=== PATIENT | male | born 1940 | race Two or more races ===

== ENCOUNTER 2018-11-17 07:30 | Inpatient (IN) | payer MEDICARE, OTHER ==
[~2018-11-17] VITALS: Ht 165.1 cm; Wt 80.7 kg
[~2018-11-17 07:30] MED LIST: NAPR375T27; VERA120T6
[2018-11-17 08:36] LABS: Urine Bacteria NONE SEEN /hpf (None Seen); Urine Blood Negative /uL (Negative); Urine WBC 1 /hpf (0 - 3)
[2018-11-17 09:20] LABS: Basophils # (auto) 0.1 uL; Basophils % (auto) 1.1 % (0.0-2.0); Eosinophils # (auto) 0.1 uL; Eosinophils % (auto) 2.1 % (0.0-7.0); Hematocrit 43.8 % (41.0-53.0); Hemoglobin 14.9 g/dL (13.5-17.5); Lymphocytes # (auto) 1.3 uL; Lymphocytes % (auto) 25.5 % (10.0-50.0); Mean Corpuscular Hemoglobin 30.8 pg (28.0-32.0); Mean Corpuscular Hgb Conc. 33.9 g/dL (32.0-36.0); Mean Corpuscular Volume 90.7 fL (80.0-100.0); Monocytes # (auto) 0.3 uL; Monocytes % (auto) 6.2 % (0.0-12.0); Neutrophils # (auto) 3.2 uL; Neutrophils % (auto) 65.1 % (37.0-80.0); Nucleated Red Blood Cells % 0.2 %; Platelet Count (auto) 158 10^3/uL (140-450); Red Blood Cells 4.83 10^6/uL (4.5-5.90); Red Cell Distribution Width 14.1 % (11.8-14.3); White Blood Cell 4.9 10^3/uL (4.4-10.8)
[2018-11-17 09:27] LABS: BUN/Creatinine Ratio 14.4; Calcium 8.6 mg/dL (8.5-10.1)
[2018-11-17 09:30] LABS: Bilirubin, Total 1.3 mg/dL (0.2-1.0)
[2018-11-17] MEDS ORDERED: hydrALAZINE HCL 20 MG/ML VL IV PRN (11:30)
[2018-11-17] MEDS ORDERED: ACETAMINOPHEN 500 MG TAB PO PRN (11:30)
[2018-11-17] MEDS ORDERED: ONDANSETRON HCL 4 MG/2 ML VIAL IV PRN (11:30)
[2018-11-17] MEDS ORDERED: NITROGLYCERIN 0.4 MG SL TAB SL PRN (11:30)
[2018-11-17] MEDS ORDERED: MORPHINE SULF INJ 2 MG/ML SYRINGE 1ML IV PRN ×2 (11:30)
[2018-11-17] MEDS ORDERED: HYDROcodone-ACET 5/325MG TAB PO PRN (11:30)
--- NOTE | 2018-11-17 13:15 | NUR ---
Telemetry admit from [facility] admitted to Telemetry unit after SBAR received. Patient oriented to REX MILLAN, primary RN, unit, room, bed, and unit policies regarding patient care and visiting hours. Patient now on continuous telemetry monitoring, tele box # [id number] and telemetry reading on arrival to unit is SR 82. Patient placed on room air, weighed by bedscale and encouraged to call if they need something. All questions and concerns addressed, patient verbalized understanding. Note:
[2018-11-17 14:46] VITALS: BP 138/67
[2018-11-17 15:26] VITALS: BP 138/67
[2018-11-17 16:43] VITALS: BP 141/81
--- NOTE | 2018-11-17 20:00 | NUR ---
Opening Shift Note Assumed care of patient, awake and alert. No S/S of distress/SOB or pain. Instructed on POC and to call for assist PRN, will continue to monitor for changes Q1hr and PRN.
[2018-11-17] MEDS: METOPROLOL TARTRATE 25 MG TAB PO SCH (21:46)
[2018-11-17 22:00] VITALS: BP 127/74
[2018-11-18 05:00] VITALS: BP 138/76
--- NOTE | 2018-11-18 07:21 | NUR ---
Report given to Tacho Bajwa to assume care, patient is resting no distress.
[2018-11-18 07:45] LABS: Basophils # (auto) 0 uL; Basophils % (auto) 0.5 % (0.0-2.0); Eosinophils # (auto) 0.1 uL; Eosinophils % (auto) 1.6 % (0.0-7.0); Hematocrit 42.7 % (41.0-53.0); Hemoglobin 14.6 g/dL (13.5-17.5); Lymphocytes # (auto) 1.3 uL; Mean Corpuscular Hemoglobin 31.3 pg (28.0-32.0); Mean Corpuscular Hgb Conc. 34.2 g/dL (32.0-36.0); Mean Corpuscular Volume 91.4 fL (80.0-100.0); Monocytes # (auto) 0.3 uL; Monocytes % (auto) 6.3 % (0.0-12.0); Neutrophils # (auto) 3.3 uL; Neutrophils % (auto) 65.6 % (37.0-80.0); Nucleated Red Blood Cells % 0.1 %; Platelet Count (auto) 149 10^3/uL (140-450); Red Blood Cells 4.67 10^6/uL (4.5-5.90); White Blood Cell 5.1 10^3/uL (4.4-10.8)
[2018-11-18 07:53] LABS: BUN/Creatinine Ratio 10.8; Calcium 8.2 mg/dL (8.5-10.1); Potassium 4.1 mmol/L (3.5-5.1)
[2018-11-18 08:00] VITALS: BP 146/74
[2018-11-18 08:04] LABS: INR 0.94 (0.9-1.15); Partial Thromboplastin Time 27.3 sec (23.64-32.05)
[2018-11-18] MEDS: METOPROLOL TARTRATE 25 MG TAB PO SCH ×2 (10:44→23:48)
[2018-11-18] MEDS: FAMOTIDINE 20 MG TAB PO SCH (10:44)
[2018-11-18] MEDS: LISINOPRIL 10 MG TAB PO SCH (10:45)
[2018-11-18 12:00] VITALS: BP 149/76
[2018-11-18 17:25] VITALS: BP 122/72
--- NOTE | 2018-11-18 19:01 | NUR ---
PT IN FOWLERS, TOLERATED MEALS WELL. PT AMBULATORY TO BATHROOM WITH STAND BY ASSIST. EFFORTLESS BREATHING ON ROOM AIR. PT HAS REMAINED FREE FROM INJURY, NON-PITTING EDEMA PRESENT TO BLE (ANKLE). BED IN LOWEST POSITION, CALL LIGHT WITHIN REACH.
[2018-11-18 20:00] VITALS: BP 146/74
[2018-11-18] MEDS ORDERED: LORazepam 2MG/ML-1ML VIAL IV PRN (20:15)
[2018-11-18 22:00] VITALS: BP 139/72
[2018-11-19 05:00] VITALS: BP 133/75
--- NOTE | 2018-11-19 07:25 | NUR ---
PT AWAKE, ALERT, ORIENTEDx4 DENIES ANY DISCOMFORT AT MOMENT. EFFORTLESS BREATHING ON ROOM AIR. NO IV ACCESS, REDNESS TO SITE PREVIOUS IV SITE; APPLIED COLD COMPRESS TO SITE, PT REPORTS COMFORT. BED WHEELS LOCKED, BED IN LOWEST POSITION, CALL LIGHT WITHIN REACH. WILL CONTINUE TO MONITOR.
[2018-11-19 08:39] LABS: Folate (Folic Acid) 14.44 ng/mL (5.38-24)
[2018-11-19 09:00] VITALS: BP 143/77
[2018-11-19] MEDS: METOPROLOL TARTRATE 25 MG TAB PO SCH ×2 (10:48→21:45)
[2018-11-19] MEDS: LISINOPRIL 10 MG TAB PO SCH (10:48)
[2018-11-19] MEDS: FAMOTIDINE 20 MG TAB PO SCH (10:48)
[2018-11-19 12:47] VITALS: BP 143/75
--- NOTE | 2018-11-19 13:45 | NUR ---
PT REPORTS HAVING HAD A BM DIARRHEA. HYGIENE CARE PROVIDED. PT TAKEN TO MRI. TRANSPORTED VIA WHEELCHAIR. NO DISTRESS NOTED AT THIS MOMENT.
--- NOTE | 2018-11-19 15:00 | NUR ---
PT BACK FROM MRI. NO DISTRESS NOTED. CALL LIGHT WITHIN REACH.
--- NOTE | 2018-11-19 15:03 | NUR ---
Received referral to see pt as he is homeless and a vet. Pt has been living in his car for over six months. His brother evicted him from their home. Pt's brother moved to [place] and the pt is here with out family in the area. Pt has two daughters in [place]. But he states they are not close. The pt lives in [place]. He earns $ 930.00 in social security and $216.00 from a [employer] pension. Pt has been going down to the [facility] but he states he has to wait for 2 to 3 months to get an appointments. Now he states he has health problems that will prevent him from moving away. Patient has been offered homeless skilled nursing and he refused. Patient wants to return to [facility] on discharge. Pt signed the homeless wavier and it has been placed in chart. He was given a resources.
--- NOTE | 2018-11-19 15:45 | NUR ---
PT REPORTS THAT HE WALKS FINE AND DOES NOT NEED P.T.
[2018-11-19 16:37] VITALS: BP 136/55
--- NOTE | 2018-11-19 19:10 | NUR ---
IV ACCESS INITIATED TO LEFT HAND #22. PT TOLERATED PROCEDURE WELL. IV FLUSHES WELL.
--- NOTE | 2018-11-19 19:48 | NUR ---
RECEIVED PATIENT FROM DAY SHIFT RN. PATIENT RESTING IN BED. NO S/S OF DISTRESS NOTED. DENIED PAIN FOR NOW. POC INSTRUCTED AND ENCOURAGED PATIENT TO CALL FOR PROJECT BUILDER IF NEEDED. BED IN LOWEST POSITION WITH SIDE RAILS UP X 2. CALL MAX WITHIN REACH. ALARM ON. CONTINUE TO MONITOR FOR CHANGES Q1H AND PRN.
[2018-11-19 22:00] VITALS: BP 124/69
--- NOTE | 2018-11-19 22:45 | NUR ---
REASSESSED BP 124/55, HR 60. CONTINUE TO MONITOR.
--- NOTE | 2018-11-20 02:39 | NUR ---
PATIENT SLEEPING. NO S/S OF DISTRESS NOTED, REPLACED PATIENT BACK TO TELEMONITOR.. CONTINUE TO MONITOR.
[2018-11-20 05:31] VITALS: BP 147/54
[2018-11-20 07:06] LABS: RPR Non Reactive (Non Reactive)
--- NOTE | 2018-11-20 07:40 | NUR ---
opening Patient awake, in bed, bed in lowest position, call light within reach. No distress noted at this time. Per history patient has had Left and Right inguinal hernias, with a L side repair. Brain MRI showed chronic issues. Echo EF 60% L spine MRI with out contrast is pending SS saw patient, apparently per noc nurse, awaiting Sonja's arrival and consult. Trops negative CXR bibasilar atelectasis ABD ct diverticulosis, prostate enlargement Per Yoana note: checking for hydrocephalus, and r/o alzheimers per katy note: bright room, daily foot inspection, ss for the living situation (per noc nurse patient is homeless and used to live in a car) Will continue to monitor this patient.
[2018-11-20 08:00] VITALS: BP 114/56
[2018-11-20] MEDS: LISINOPRIL 10 MG TAB PO SCH (10:00)
[2018-11-20] MEDS: METOPROLOL TARTRATE 25 MG TAB PO SCH ×2 (10:00→21:43)
[2018-11-20] MEDS: FAMOTIDINE 20 MG TAB PO SCH (10:15)
--- NOTE | 2018-11-20 10:18 | NUR ---
nurse note upon assessment noted the patient R foot is reddened and warm, will endorse to hospitalist for possible r/o any blood clots
--- NOTE | 2018-11-20 10:22 | NUR ---
nurse note patient describes inability to control bowel or urination
[2018-11-20 12:00] VITALS: BP 120/57
--- NOTE | 2018-11-20 12:21 | NUR ---
Nutrition Assessment Notes please see attached link for complete assessment Est. Needs BW [id number] kcal (20-23 kcal/kgBW), 81-89 gms pro (1.0-1.1 gms/kgBW). Will continue to monitor pertinent labs and reassess nutrient need prn Addendum: 11/20/18 at [address] Amended: Links added.
[2018-11-20 16:00] VITALS: BP 121/68
--- NOTE | 2018-11-20 19:10 | NUR ---
RECEIVED PATIENT FROM DAY SHIFT RN. PATIENT RESTING IN BED. NO S/S OF DISTRESS NOTED. DENIED PAIN FOR NOW. C/O DIZZINESS WHEN HE TRIED TO LAY DOWN TO THE BED. VITALS STABLE, BP 120/70, HR 61. O2 SAT 97% ON RA. PATIENT DENIED DIZZINESS AFTER LYING ON THE BED. INSTRUCTED PATIENT TO CHANGE POSITION SLOWLY WHEN HE FEELS DIZZY, AND CALL FOR HELP. PATIENT VERBALIZED UNDERSTANDING. POC INSTRUCTED AND ENCOURAGED PATIENT TO CALL FOR BASKET PERSON IF NEEDED. BED IN LOWEST POSITION WITH SIDE RAILS UP X 2. CALL MAX WITHIN REACH. ALARM ON. CONTINUE TO MONITOR FOR CHANGES Q1H AND PRN.
[2018-11-20 22:00] VITALS: BP 115/60
--- NOTE | 2018-11-20 22:16 | NUR ---
PATIENT'S DAUGHTER CALLED AND ASKED INFO ABOUT PATIENT. SINCE THERE IS NO PASSWORD SET BY PATIENT, NO INFO RELEASE OUT. PATIENT'S DAUGHTER GOT MAD AND STATED THAT SHE'S WORRY ABOUT HER DAD AND WOULD LIKE TO KNOW WHAT'S GOING ON WITH HER DAD. DOUBLE CHECKED WITH PATIENT, PATIENT ALERT AND ORIENTED AT THIS TIME AND STATED NO PASSWORD NEEDED. REINFORCED PATIENT THAT IF NO PASSWORD, PER HIPAA POLICY, NO INFO COULD BE RELEASED TO ANYONE. PATIENT VERBALIZED UNDERSTANDING. AND STATED THAT HIS DAUGHTER COULD CALL HIS CELL PHONE THAT WAS AT HIS BEDSIDE. TOLD PATIENT'S DAUGHTER REGARDING TO WHAT PATIENT WISHED. SHE HUNG UP THE PHONE. RIGHT WAY AFTER THE DAUGHTER HUNG UP THE PHONE, PATIENT'S SON CALLED AND STATED WHAT HIS CONCERN, REPEATED TO THE SON THAT PATIENT DID NOT WANT TO RELEASE ANY INFO OUT. HE COULD CALL PATIENT'S CELL PHONE FOR ANY INFO. CHARGE NURSE JOSHUA SHEA. CONTINUE TO MONITOR.
--- NOTE | 2018-11-20 22:41 | NUR ---
REASSESSED BP 110/69, HR 66. PATIENT DENIED DIZZINESS AT THIS TIME. CONTINUE TO MONITOR.
--- NOTE | 2018-11-21 02:09 | NUR ---
PATIENT LYING ON HIS STOMACH AND WATCHING VIDEO ON HIS CELL PHONE. NO S/S OF DISTRESS NOTED. DENIED PAIN FOR NOW. BED IN LOWEST POSITION. ALARM ON. CALL MAX WITHIN REACH. CONTINUE TO MONITOR.
[2018-11-21 05:00] VITALS: BP 102/52
--- NOTE | 2018-11-21 05:08 | NUR ---
PATIENT SLEEPING. NO S/S OF DISTRESS NOTED. CONTINUE CARE.
[2018-11-21 07:59] VITALS: BP 133/71
[2018-11-21] MEDS: FAMOTIDINE 20 MG TAB PO SCH (10:25)
[2018-11-21] MEDS: METOPROLOL TARTRATE 25 MG TAB PO SCH ×2 (10:26→22:00)
[2018-11-21] MEDS: LISINOPRIL 10 MG TAB PO SCH (10:26)
--- NOTE | 2018-11-21 10:32 | NUR ---
PW PATIENT REQUESTING TO SET UP PW AND PERSON TO NOTIFY JEFFREY CARLOS-SON [phone] AND PW HETAL CULVER. INFO UPDATED ON [employer]. WILL CONT CARE
[2018-11-21 12:00] VITALS: BP 129/63
--- NOTE | 2018-11-21 12:40 | NUR ---
at bedside MD Bain at bedside, aware of patient's status. Awaiting new orders at this time. MD states possible snf transfer?
--- NOTE | 2018-11-21 13:45 | NUR ---
Social service consult spoke to Corrine regarding social service consult for SNF transfer. Per Corrine pt has Medicare part one and will look into it. No discharge order at this time. Cont care
[2018-11-21 16:00] VITALS: BP 96/52
--- NOTE | 2018-11-21 18:54 | NUR ---
Patient resting comfortably in bed no acute distress or sob noted. Instructed to call for assistance as needed. Will endorse care to Kellee sen.
--- NOTE | 2018-11-21 19:15 | NUR ---
RECEIVED PATIENT FROM DAY SHIFT RN. PATIENT RESTING IN BED. NO S/S OF DISTRESS NOTED. DENIED PAIN FOR NOW. POC INSTRUCTED AND ENCOURAGED PATIENT TO CALL FOR SECURITY INTERN IF NEEDED. BED IN LOWEST POSITION WITH SIDE RAILS UP X 2. CALL MAX WITHIN REACH. ALARM ON. CONTINUE TO MONITOR FOR CHANGES Q1H AND PRN.
[2018-11-21 21:26] VITALS: BP 124/84
--- NOTE | 2018-11-21 22:08 | NUR ---
SCHEDULED BP MEDICATION HELD FOR DECREASED BP 99/59, HR 78. PATIENT DENIED DIZZINESS AND LIGHT HEADACHE AT THIS TIME. CONTINUE TO MONITOR.
--- NOTE | 2018-11-22 03:49 | NUR ---
PATIENT SLEEPING. NO S/S OF DISTRESS NOTED. CONTINUE CARE.
[2018-11-22 04:50] VITALS: BP 93/55
--- NOTE | 2018-11-22 06:54 | NUR ---
PATIENT SLEEPING. NO S/S OF DISTRESS NOTED. CONTINUE CARE.
[2018-11-22 07:05] LABS: BUN/Creatinine Ratio 8.5; Calcium 8.5 mg/dL (8.5-10.1); Magnesium 2.1 mg/dL (1.6-2.6); Potassium 3.5 mmol/L (3.5-5.1)
--- NOTE | 2018-11-22 07:30 | NUR ---
Opening Shift Note Assumed care of patient, awake and alert. No S/S of distress/SOB. Pt denies pain. Instructed on POC and to call for assist PRN, will continue to monitor for changes Q1hr and PRN.
[2018-11-22 09:00] VITALS: BP 106/57
[2018-11-22] MEDS: FAMOTIDINE 20 MG TAB PO SCH (09:36)
[2018-11-22] MEDS: CYANOCOBALAMIN 500 MCG TAB PO SCH (09:36)
[2018-11-22] MEDS: LISINOPRIL 10 MG TAB PO SCH (10:00)
[2018-11-22] MEDS: METOPROLOL TARTRATE 25 MG TAB PO SCH ×2 (10:00→22:04)
--- NOTE | 2018-11-22 10:43 | NUR ---
Hospitalist at bedside MD Bain at bedside, aware of patient's status including decreased BP and meds held this morning. Neurologist Dr Pastor at bedside to assess patient. No new orders received at this time. Cont care
[2018-11-22 13:00] VITALS: BP 116/59
--- NOTE | 2018-11-22 13:11 | NUR ---
Neurologist spoke to pt's daughter Dr. Pastor spoke to patient's daughter after patient consent. Per Dr Pastor pt's daughter might be taking patient to [place] where she lives and she would like to be contacted upon d/c order is received. No new orders at this time. Cont care
[2018-11-22 16:56] VITALS: BP 104/53
--- NOTE | 2018-11-22 19:00 | NUR ---
Patient care endorsed endorsed care to Kellee sen. Patient resting comfortably in bed in no acute distress or sob noted. Fall precs in place per protocol.
--- NOTE | 2018-11-22 19:10 | NUR ---
RECEIVED PATIENT FROM DAY SHIFT RN. PATIENT RESTING IN BED. NO S/S OF DISTRESS NOTED. DENIED PAIN FOR NOW. POC INSTRUCTED AND ENCOURAGED PATIENT TO CALL FOR OWNER CONSULTING ENGINEER IF NEEDED. BED IN LOWEST POSITION WITH SIDE RAILS UP X 2. CALL MAX WITHIN REACH. ALARM ON. CONTINUE TO MONITOR FOR CHANGES Q1H AND PRN.
[2018-11-22 22:00] VITALS: BP 119/69
--- NOTE | 2018-11-22 23:00 | NUR ---
REASSESSED BP 116/58, HR 62. CONTINUE TO MONITOR.
--- NOTE | 2018-11-23 03:43 | NUR ---
PATIENT SLEEPING. NO S/S OF DISTRESS NOTED. CONTINUE CARE.
[2018-11-23 05:15] VITALS: BP 100/57
[2018-11-23 09:00] VITALS: BP 137/86
[2018-11-23] MEDS: METOPROLOL TARTRATE 25 MG TAB PO SCH (10:32)
[2018-11-23] MEDS: CYANOCOBALAMIN 500 MCG TAB PO SCH (10:32)
[2018-11-23] MEDS: LISINOPRIL 10 MG TAB PO SCH (10:33)
[2018-11-23] MEDS: FAMOTIDINE 20 MG TAB PO SCH (10:33)
[2018-11-23 10:41] LABS: Free T4 (Free Thyroxine) 1.05 ng/dL (0.89-1.76)
[2018-11-23 10:42] LABS: Folate (Folic Acid) 9.77 ng/mL (5.38-24)
--- NOTE | 2018-11-23 12:21 | NUR ---
DOCTOR CYNTHIA AT BEDSIDE. PATIENT STATES THAT HE DOES NOT WANT TO GO TO A SNF, HE HAS A FRIEND HE CAN STAY WITH. PATIENT AGREED TO TAKE A [facility]AX[facility] HOME. WILL FOLLOW UP WITH FRIEND'S ADDRESS.
[2018-11-23 13:00] VITALS: BP 111/59
--- NOTE | 2018-11-23 16:38 | NUR ---
Reassesment Per consult for SNF placement. Pt information and choice letter was given first choice [facility] and second choice [facility]. Pt then changed his mind and refused placement. Per [facility] social service and SUGEY Collado Pt refused SNF service. Pt agrees and understand d/c plan Addendum: 11/23/18 at 1643 by EMERITA GREER Amended: Links added.
[2018-11-23 16:50] VITALS: BP 116/72
--- NOTE | 2018-11-23 18:23 | NUR ---
Discharge instructions given as ordered. Encourage to follow up with PMD as instructed. All questions and concerns addressed. Patient verbalized understanding. Medication reconciliation form completed and copy given to patient. Home medications held in Pharmacy returned to patient, and needed vaccines given. IV removed with catheter intact, pressure dressing applied. Telemetry unit returned to ICU. Patient taken to [facility] via wheelchair with all personal belongings, accompanied by staff member. No distress noted at time of departure.
== END 2018-11-23 18:20 | disposition home or self-care (01) | DRG 74 ==
LOC: ER 07:34 → TELE 07:35 → TELE-WESTW 14:33
PROVIDERS: ADMIT Nurse Practitioner Acute Care; ATTEND Internal Medicine
DX: G62.9 Polyneuropathy, unspecified (principal); G91.2 (Idiopathic) normal pressure hydrocephalus; K57.90 Diverticulosis of intestine, part unspecified, without perforation or abscess without bleeding; R32 Unspecified urinary incontinence; K57.30 Diverticulosis of large intestine without perforation or abscess without bleeding; R15.9 Full incontinence of feces; R26.9 Unspecified abnormalities of gait and mobility; G30.9 Alzheimer's disease, unspecified; F02.80 Dementia in other diseases classified elsewhere, unspecified severity, without behavioral disturbance, psychotic disturbance, mood disturbance, and anxiety; K40.90 Unilateral inguinal hernia, without obstruction or gangrene, not specified as recurrent; G60.9 Hereditary and idiopathic neuropathy, unspecified; G93.89 Other specified disorders of brain; N40.0 Benign prostatic hyperplasia without lower urinary tract symptoms; Z59.0 Homelessness; Z81.8 Family history of other mental and behavioral disorders; Z83.3 Family history of diabetes mellitus; Z90.49 Acquired absence of other specified parts of digestive tract; I10 Essential (primary) hypertension
CPT/HCPCS: 36415; 70551; 71045; 72148; 74176; 80048; 80053; 81001; 82607; 82746; 83036; 83690; 83735; 83880; 84154; 84439; 84443; 84484; 85025; 85610; 85730; 86141; 86592; 93005; 93306; 93970; 94761; G0378

== ENCOUNTER 2018-12-17 03:25 | Emergency (ER) | payer MEDICARE, OTHER ==
[~2018-12-17] VITALS: Ht 165.1 cm; Wt 81.6 kg
[2018-12-17 05:41] LABS: Basophils # (auto) 0 uL; Basophils % (auto) 0.3 % (0.0-2.0); Eosinophils # (auto) 0.1 uL; Eosinophils % (auto) 2.2 % (0.0-7.0); Hematocrit 38.6 % (41.0-53.0); Hemoglobin 13.3 g/dL (13.5-17.5); Lymphocytes # (auto) 1.3 uL; Lymphocytes % (auto) 27.9 % (10.0-50.0); Mean Corpuscular Hemoglobin 31.3 pg (28.0-32.0); Mean Corpuscular Hgb Conc. 34.5 g/dL (32.0-36.0); Mean Corpuscular Volume 90.5 fL (80.0-100.0); Monocytes # (auto) 0.3 uL; Monocytes % (auto) 7.1 % (0.0-12.0); Neutrophils # (auto) 2.8 uL; Neutrophils % (auto) 62.5 % (37.0-80.0); Nucleated Red Blood Cells % 0.1 %; Platelet Count (auto) 154 10^3/uL (140-450); Red Blood Cells 4.26 10^6/uL (4.5-5.90); Red Cell Distribution Width 14.5 % (11.8-14.3); White Blood Cell 4.5 10^3/uL (4.4-10.8)
[2018-12-17 05:57] LABS: Alanine Aminotransferase 21 U/L (16-61); Albumin 3.7 g/dL (3.4-5.0); Anion Gap 10 (5-15); Aspartate Aminotransferase 8 U/L (15-37); BUN/Creatinine Ratio 17.1; Blood Urea Nitrogen 18 mg/dL (7-18); Carbon Dioxide 24 mmol/L (21-32); Chloride 112 mmol/L (98-107); GFR African American 89 mL/min; GFR Non-African American 73 mL/min; Glucose 107 mg/dL (74-106); Magnesium 2.2 mg/dL (1.6-2.6); Potassium 3.7 mmol/L (3.5-5.1); Sodium 146 mmol/L (136-145)
[2018-12-17 06:02] LABS: Alkaline Phosphatase 58 U/L (45-117); Bilirubin, Total 1.3 mg/dL (0.2-1.0); Total Protein 7.1 g/dL (6.4-8.2)
[2018-12-17 07:37] LABS: Urine Bacteria NONE SEEN /hpf (None Seen); Urine Blood Negative /uL (Negative); Urine Mucus FEW (None Seen); Urine Specific Gravity 1.018 (1.001-1.035); Urine WBC <1 /hpf (0 - 3)
[2018-12-17 08:00] VITALS: BP 126/60
== END 2018-12-17 09:54 | disposition home or self-care (01) ==
LOC: ER 03:27
DX: G62.9 Polyneuropathy, unspecified (principal); Z90.49 Acquired absence of other specified parts of digestive tract; Z88.0 Allergy status to penicillin
CPT/HCPCS: 36415; 80053; 81001; 83735; 83880; 84484; 85025; 93005

== ENCOUNTER 2019-01-08 23:48 | Emergency (ER) | payer OTHER ==
[~2019-01-08] VITALS: Ht 165.1 cm; Wt 81.6 kg
[2019-01-09 01:41] LABS: Urine Bacteria NONE SEEN /hpf (None Seen); Urine Blood Negative /uL (Negative); Urine Specific Gravity 1.025 (1.001-1.035); Urine WBC <1 /hpf (0 - 3)
[2019-01-09 02:26] LABS: Basophils # (auto) 0 uL; Basophils % (auto) 0.8 % (0.0-2.0); Eosinophils # (auto) 0.1 uL; Eosinophils % (auto) 2.2 % (0.0-7.0); Hematocrit 41.4 % (41.0-53.0); Hemoglobin 14.5 g/dL (13.5-17.5); Lymphocytes # (auto) 1.6 uL; Lymphocytes % (auto) 27.3 % (10.0-50.0); Mean Corpuscular Hemoglobin 31.8 pg (28.0-32.0); Mean Corpuscular Hgb Conc. 35.1 g/dL (32.0-36.0); Mean Corpuscular Volume 90.7 fL (80.0-100.0); Monocytes # (auto) 0.5 uL; Monocytes % (auto) 8.1 % (0.0-12.0); Neutrophils # (auto) 3.7 uL; Neutrophils % (auto) 61.6 % (37.0-80.0); Nucleated Red Blood Cells % 0.1 %; Platelet Count (auto) 166 10^3/uL (140-450); Red Blood Cells 4.56 10^6/uL (4.5-5.90); Red Cell Distribution Width 14.6 % (11.8-14.3)
[2019-01-09 02:58] LABS: Albumin 4.1 g/dL (3.4-5.0); Calcium 8.9 mg/dL (8.5-10.1); Potassium 4.2 mmol/L (3.5-5.1)
[2019-01-09 03:03] LABS: Total Protein 7.4 g/dL (6.4-8.2)
[2019-01-09] MEDS ORDERED: SPIRONOLACTONE 25 MG TAB PO ONE (07:45)
[2019-01-09] MEDS ORDERED: FUROSEMIDE 20 MG TAB PO ONE (07:45)
[2019-01-09] MEDS ORDERED: FUROSEMIDE 40 MG TAB ONE (07:54)
[2019-01-09 07:59] VITALS: BP 134/92
== END 2019-01-09 08:09 | disposition home or self-care (01) ==
LOC: ER 23:48
DX: R60.9 Edema, unspecified (principal); F41.9 Anxiety disorder, unspecified; M47.896 Other spondylosis, lumbar region; N40.0 Benign prostatic hyperplasia without lower urinary tract symptoms; K40.90 Unilateral inguinal hernia, without obstruction or gangrene, not specified as recurrent; G91.2 (Idiopathic) normal pressure hydrocephalus; I10 Essential (primary) hypertension; Z90.49 Acquired absence of other specified parts of digestive tract
CPT/HCPCS: 36415; 80053; 81001; 83880; 85025

== ENCOUNTER 2019-05-02 13:43 | Inpatient (IN) | payer MEDICARE, OTHER ==
[~2019-05-02] VITALS: Ht 165.1 cm; Wt 183.4 kg
[2019-05-02 14:16] LABS: Basophils # (auto) 0 uL; Basophils % (auto) 0.3 % (0.0-2.0); Eosinophils # (auto) 0.1 uL; Eosinophils % (auto) 2.2 % (0.0-7.0); Hematocrit 39.5 % (41.0-53.0); Hemoglobin 13.5 g/dL (13.5-17.5); Lymphocytes # (auto) 1.6 uL; Mean Corpuscular Hemoglobin 30.8 pg (28.0-32.0); Mean Corpuscular Volume 90.5 fL (80.0-100.0); Monocytes # (auto) 0.4 uL; Monocytes % (auto) 7.7 % (0.0-12.0); Neutrophils # (auto) 3.4 uL; Neutrophils % (auto) 61.8 % (37.0-80.0); Nucleated Red Blood Cells % 0.2 %; Platelet Count (auto) 191 10^3/uL (140-450); Red Blood Cells 4.36 10^6/uL (4.5-5.90); Red Cell Distribution Width 14.3 % (11.8-14.3); White Blood Cell 5.6 10^3/uL (4.4-10.8)
[2019-05-02 14:37] LABS: INR 0.97 (0.9-1.15); Partial Thromboplastin Time 29.1 sec (23.64-32.05)
[2019-05-02 14:42] LABS: Albumin 3.3 g/dL (3.4-5.0); Calcium 8.6 mg/dL (8.5-10.1)
[2019-05-02 14:46] LABS: BUN/Creatinine Ratio 15.6; Bilirubin, Total 0.6 mg/dL (0.2-1.0); Total Protein 7.2 g/dL (6.4-8.2)
[2019-05-02] MEDS ORDERED: LEVOFLOXACIN 750MG 150 ML IV ONE (22:15)
[2019-05-03] MEDS ORDERED: DOCUSATE SOD 100 MG CAP PO PRN (01:30)
[2019-05-03] MEDS ORDERED: ONDANSETRON HCL 4 MG/2 ML VIAL IV PRN (01:30)
[2019-05-03] MEDS ORDERED: HYDROcodone-ACET 5/325MG TAB PO PRN (01:30)
[2019-05-03] MEDS ORDERED: LORazepam 0.5 MG TAB PO PRN (01:30)
[2019-05-03] MEDS ORDERED: ALBUTEROL SULF 2.5 MG/0.5ML(0.5%) NEB SOLN NEB PRN (01:30)
[2019-05-03] MEDS ORDERED: ACETAMINOPHEN 325 MG TAB PO PRN (01:30)
[2019-05-03] MEDS ORDERED: IPRATROPIUM BROM 0.5 MG/2.5ML INH SOL NEB PRN (01:30)
[2019-05-03] MEDS ORDERED: MORPHINE SULFATE 4 MG/ML SYR/VIAL IV PRN (01:30)
[2019-05-03] MEDS ORDERED: ALUM & MAG HYDROX-SIMETH LIQ(MAALOX) 30 ML PO PRN (01:30)
[2019-05-03] MEDS: guaiFENesin-DM 100/10mg/5ml SYR PO SCH ×5 (02:22→19:33)
[2019-05-03] MEDS: SODIUM CHLORIDE 0.9% 1,000 ML IV SCH ×2 (03:18→22:00)
[2019-05-03 03:35] VITALS: BP 136/78
[2019-05-03 05:44] LABS: Basophils # (auto) 0 uL; Basophils % (auto) 0.5 % (0.0-2.0); Eosinophils # (auto) 0.1 uL; Eosinophils % (auto) 1.7 % (0.0-7.0); Hematocrit 40.7 % (41.0-53.0); Hemoglobin 13.9 g/dL (13.5-17.5); Lymphocytes # (auto) 1.1 uL; Lymphocytes % (auto) 19.3 % (10.0-50.0); Mean Corpuscular Hemoglobin 30.9 pg (28.0-32.0); Mean Corpuscular Hgb Conc. 34.3 g/dL (32.0-36.0); Monocytes # (auto) 0.4 uL; Monocytes % (auto) 6.5 % (0.0-12.0); Platelet Count (auto) 180 10^3/uL (140-450); Red Blood Cells 4.52 10^6/uL (4.5-5.90); Red Cell Distribution Width 13.6 % (11.8-14.3); White Blood Cell 5.5 10^3/uL (4.4-10.8)
[2019-05-03 06:18] LABS: BUN/Creatinine Ratio 12.5; Calcium 8.3 mg/dL (8.5-10.1); Potassium 4.1 mmol/L (3.5-5.1)
[2019-05-03] MEDS ORDERED: cefTRIAXone 1GM/50ML D5W 50 ML IV SCH (10:00)
--- NOTE | 2019-05-03 10:27 | NUR ---
Respiratory note: Assessed pt for prn medneb tx. HR 92, RR 16, POX 96% on room air. Breath sounds clear/diminished throughout. Pt denies any SOB at this time, no s/s of respiratory distress noted. Medneb tx not indicated at this time. Advised pt to call for RT if needed, pt verbalized understanding.
--- NOTE | 2019-05-03 17:50 | NUR ---
oMS admit from [facility] admitted to MS after SBAR received. Patient oriented to Reanna Gonzalez RN primary RN, unit, room, bed, and unit policies regarding patient care and visiting hours. Patient is alert and oriented x4. No signs of distress. Patient not reporting any pain or SOB. Bed is in the lowest position with 2x side rails up for safety. Call light is within reach. Encouraged to call if they need something. All questions and concerns addressed, patient verbalized understanding. Will continue to monitor prn and Q1hr.
--- NOTE | 2019-05-03 18:16 | NUR ---
Respiratory note: NO PRN TX GIVEN AT THIS TIME, NOT INDICATED. SPO2 97% ON RA, HR 83, RR 20. NO SOB NOTED.
--- NOTE | 2019-05-03 19:10 | NUR ---
Opening Shift Note Assumed care of patient. Patient is awake and alert. No S/S of distress/SOB or pain. Instructed on POC and to call for assist PRN, will continue to monitor for changes. Bed locked in lowest position and bed rails up x2. Call light within reach.
[2019-05-03 22:00] VITALS: BP 158/92
[2019-05-03] MEDS ORDERED: LEVOFLOXACIN 500MG 100 ML IV SCH (22:00)
--- NOTE | 2019-05-03 22:20 | NUR ---
B/P elevated reading at 161/92. Retaken and reading at 158/92. Paged hospitalist. Awaiting call back.
[2019-05-03] MEDS ORDERED: cloNIDine HCL 0.1 MG TAB PO ONE (22:45)
--- NOTE | 2019-05-03 22:45 | NUR ---
Hospitalist paged back. New orders received. Will carry out orders and continue to monitor patient Q1 hour and PRN.
[2019-05-04] MEDS: guaiFENesin-DM 100/10mg/5ml SYR PO SCH ×4 (02:53→15:20)
[2019-05-04 05:00] VITALS: BP 138/83
[2019-05-04 06:43] LABS: Basophils # (auto) 0 uL; Basophils % (auto) 0.4 % (0.0-2.0); Eosinophils # (auto) 0.1 uL; Eosinophils % (auto) 1.5 % (0.0-7.0); Hematocrit 40.3 % (41.0-53.0); Lymphocytes # (auto) 1.2 uL; Lymphocytes % (auto) 22.1 % (10.0-50.0); Mean Corpuscular Hgb Conc. 34.7 g/dL (32.0-36.0); Mean Corpuscular Volume 89.6 fL (80.0-100.0); Monocytes # (auto) 0.3 uL; Monocytes % (auto) 6.3 % (0.0-12.0); Neutrophils # (auto) 3.9 uL; Neutrophils % (auto) 69.7 % (37.0-80.0); Nucleated Red Blood Cells % 0.1 %; Platelet Count (auto) 192 10^3/uL (140-450); Red Cell Distribution Width 13.8 % (11.8-14.3); White Blood Cell 5.5 10^3/uL (4.4-10.8)
[2019-05-04 07:04] LABS: BUN/Creatinine Ratio 11.7; Calcium 8.3 mg/dL (8.5-10.1); Potassium 4.4 mmol/L (3.5-5.1)
--- NOTE | 2019-05-04 07:30 | NUR ---
Opening Shift Note Assumed care of patient, who is alert and oriented. No S/S of distress/SOB or pain. Bed is in lowest position with 2x side rails up for safety. Call light is within reach. Instructed on POC and to call for assist PRN, will continue to monitor for changes Q1hr and PRN.
[2019-05-04 08:00] VITALS: BP 136/76
[2019-05-04 09:00] VITALS: BP 136/76
--- NOTE | 2019-05-04 11:10 | NUR ---
Respiratory note: HR 91, RR 18, SPO2 94% ON RA BS CLEAR-DIMINISHED. PRN MED NEB TX NOT INDICATED AT THIS TIME. NO SIGNS OR SYMPTOMS OF RESPIRATORY DISTRESS NOTED. PT INFORMED TO HIT CALL BUTTON IF FEELING SOB OR WHEEZING.
[2019-05-04] MEDS: SODIUM CHLORIDE 0.9% 1,000 ML IV SCH (12:20)
[2019-05-04 12:59] VITALS: BP 133/89
[2019-05-04 18:24] VITALS: BP 133/89
--- NOTE | 2019-05-04 18:29 | NUR ---
DISCHARGE PER TILE LAYER SUPERVISOR THEY OFFERED PATIENT INFORMATION ON SHELTERS AND PATIENT DECLINED. WILL CONTINUE WITH DISCHARGE.
--- NOTE | 2019-05-04 18:41 | NUR ---
Discharge instructions given as ordered. Encourage to follow up with PMD as instructed. [facility] All questions and concerns addressed. Patient verbalized understanding. Patient refused information to shelters. IV removed with catheter intact, pressure dressing applied. Patient ambulated to vehicle with walker and belongings. No distress noted at time of departure.
--- NOTE | 2019-05-06 14:09 | NUR ---
Pt left hospital AMA prior to being assess. Addendum: 05/06/19 at 1410 by BRIAN SUTTON SS Amended: Links added.
== END 2019-05-04 18:55 | disposition home or self-care (01) | DRG 202 ==
LOC: ER 13:43 → OVERFLOW 13:44 → WEST WING 05-03 17:54
PROVIDERS: ADMIT Hospitalist; ATTEND Internal Medicine
DX: J20.9 Acute bronchitis, unspecified (principal); J44.0 Chronic obstructive pulmonary disease with (acute) lower respiratory infection; J45.901 Unspecified asthma with (acute) exacerbation; G91.2 (Idiopathic) normal pressure hydrocephalus; J44.1 Chronic obstructive pulmonary disease with (acute) exacerbation; R62.7 Adult failure to thrive; R06.03 Acute respiratory distress; Z88.3 Allergy status to other anti-infective agents; Z59.0 Homelessness; Z90.49 Acquired absence of other specified parts of digestive tract; M19.90 Unspecified osteoarthritis, unspecified site; I11.9 Hypertensive heart disease without heart failure; K57.30 Diverticulosis of large intestine without perforation or abscess without bleeding; Z88.0 Allergy status to penicillin
CPT/HCPCS: 36415; 71046; 80048; 80053; 83880; 85025; 85610; 85730; 96361; 96365; G0378; J1956

== ENCOUNTER 2020-10-12 19:17 | Emergency (ER) | payer MEDICARE, OTHER ==
[~2020-10-12] VITALS: Ht 165.1 cm; Wt 81.6 kg
[2020-10-12 20:05] LABS: Basophils # (auto) 0 10 ^3/uL (0-0.2); Basophils % (auto) 0.6 % (0.0-2.0); Eosinophils # (auto) 0.1 10 ^3/uL (0-0.8); Eosinophils % (auto) 1.5 % (0.0-7.0); Hematocrit 39.8 % (41.0-53.0); Hemoglobin 14.1 g/dL (13.5-17.5); Lymphocytes # (auto) 1.1 10 ^3/uL (0.4-5.4); Lymphocytes % (auto) 19.6 % (10.0-50.0); Mean Corpuscular Hemoglobin 31.9 pg (28.0-32.0); Mean Corpuscular Hgb Conc. 35.4 g/dL (32.0-36.0); Mean Corpuscular Volume 90.1 fL (80.0-100.0); Monocytes # (auto) 0.5 10 ^3/uL (0-1.3); Monocytes % (auto) 8.2 % (0.0-12.0); Neutrophils % (auto) 70.1 % (37.0-80.0); Nucleated Red Blood Cells % 0.3 %; Platelet Count (auto) 152 10^3/uL (140-450); Red Blood Cells 4.42 10^6/uL (4.5-5.90); Red Cell Distribution Width 13.9 % (11.8-14.3); White Blood Cell 5.7 10^3/uL (4.4-10.8)
[2020-10-12 20:21] LABS: Albumin 3.6 g/dL (3.4-5.0); BUN/Creatinine Ratio 15.5; Calcium 8.3 mg/dL (8.5-10.1); Potassium 3.7 mmol/L (3.5-5.1)
[2020-10-12 20:23] LABS: Bilirubin, Total 1.5 mg/dL (0.2-1.0); Total Protein 7.3 g/dL (6.4-8.2)
[2020-10-12 21:49] LABS: Urine Bacteria NONE SEEN /hpf (None Seen); Urine Blood Negative /uL (Negative); Urine Specific Gravity 1.011 (1.001-1.035); Urine WBC 2 /hpf (0 - 3)
[2020-10-12 22:01] VITALS: BP 158/78
== END 2020-10-12 22:07 | disposition home or self-care (01) ==
LOC: ER 19:17
DX: R22.43 Localized swelling, mass and lump, lower limb, bilateral (principal); Z90.49 Acquired absence of other specified parts of digestive tract; Z88.0 Allergy status to penicillin
CPT/HCPCS: 36415; 71045; 80053; 81001; 85025; 93970

== ENCOUNTER 2020-11-10 01:46 | Emergency (ER) | payer OTHER ==
[~2020-11-10] VITALS: Ht 165.1 cm; Wt 77.1 kg
[2020-11-10 02:04] VITALS: BP 124/92
[2020-11-10 03:00] LABS: Basophils # (auto) 0 10 ^3/uL (0-0.2); Basophils % (auto) 0.6 % (0.0-2.0); Eosinophils # (auto) 0.2 10 ^3/uL (0-0.8); Eosinophils % (auto) 2.7 % (0.0-7.0); Hematocrit 42.2 % (41.0-53.0); Hemoglobin 14.6 g/dL (13.5-17.5); Lymphocytes # (auto) 1.7 10 ^3/uL (0.4-5.4); Lymphocytes % (auto) 27.4 % (10.0-50.0); Mean Corpuscular Hemoglobin 31.2 pg (28.0-32.0); Mean Corpuscular Hgb Conc. 34.6 g/dL (32.0-36.0); Mean Corpuscular Volume 90.3 fL (80.0-100.0); Monocytes # (auto) 0.4 10 ^3/uL (0-1.3); Monocytes % (auto) 6.6 % (0.0-12.0); Neutrophils # (auto) 3.9 10 ^3/uL (1.6-8.6); Neutrophils % (auto) 62.7 % (37.0-80.0); Nucleated Red Blood Cells % 0.1 %; Platelet Count (auto) 181 10^3/uL (140-450); Red Blood Cells 4.67 10^6/uL (4.5-5.90); Red Cell Distribution Width 14.3 % (11.8-14.3); White Blood Cell 6.2 10^3/uL (4.4-10.8)
[2020-11-10 03:19] LABS: Alanine Aminotransferase 23 U/L (16-61); Albumin 3.6 g/dL (3.4-5.0); Anion Gap 5 (5-15); Aspartate Aminotransferase 16 U/L (15-37); BUN/Creatinine Ratio 16.7; Blood Urea Nitrogen 19 mg/dL (7-18); Calcium 8.6 mg/dL (8.5-10.1); Carbon Dioxide 25 mmol/L (21-32); Chloride 114 mmol/L (98-107); GFR African American 80 mL/min; GFR Non-African American 66 mL/min; Glucose 127 mg/dL (74-106); Potassium 4.3 mmol/L (3.5-5.1); Sodium 144 mmol/L (136-145)
[2020-11-10 03:24] LABS: Alkaline Phosphatase 58 U/L (45-117); Bilirubin, Total 1.1 mg/dL (0.2-1.0); Total Protein 7.7 g/dL (6.4-8.2)
== END 2020-11-10 06:24 | disposition left against medical advice (07) ==
LOC: ER 01:46
DX: R22.43 Localized swelling, mass and lump, lower limb, bilateral (principal); Z53.21 Procedure and treatment not carried out due to patient leaving prior to being seen by health care provider
CPT/HCPCS: 36415; 80053; 83880; 84484; 85025; 93005

== ENCOUNTER 2020-12-02 07:39 | Inpatient (IN) | payer OTHER, MEDICARE ==
[~2020-12-02] VITALS: Ht 165.1 cm; Wt 87.3 kg
[2020-12-02] MEDS ORDERED: ASPirin 81 mg TAB PO ONE (08:00)
[2020-12-02] MEDS ORDERED: SODIUM CHLORIDE 0.9% 1,000 ML IV ONE (08:00)
[2020-12-02 08:29] LABS: Basophils # (auto) 0 10 ^3/uL (0-0.2); Basophils % (auto) 0.6 % (0.0-2.0); Eosinophils # (auto) 0.2 10 ^3/uL (0-0.8); Eosinophils % (auto) 2.9 % (0.0-7.0); Hematocrit 37.6 % (41.0-53.0); Hemoglobin 13.5 g/dL (13.5-17.5); Lymphocytes # (auto) 1.4 10 ^3/uL (0.4-5.4); Lymphocytes % (auto) 22.6 % (10.0-50.0); Mean Corpuscular Hemoglobin 31.9 pg (28.0-32.0); Mean Corpuscular Volume 88.6 fL (80.0-100.0); Monocytes # (auto) 0.4 10 ^3/uL (0-1.3); Monocytes % (auto) 7.1 % (0.0-12.0); Neutrophils % (auto) 66.8 % (37.0-80.0); Nucleated Red Blood Cells % 0.3 %; Red Blood Cells 4.24 10^6/uL (4.5-5.90)
[2020-12-02 08:45] LABS: INR 0.97 (0.9-1.15); Partial Thromboplastin Time 28.4 sec (23.0-31.2)
[2020-12-02 08:51] LABS: Albumin 3.6 g/dL (3.4-5.0); Anion Gap 4 (5-15); Blood Urea Nitrogen 14 mg/dL (7-18); Calcium 8.2 mg/dL (8.5-10.1); Carbon Dioxide 26 mmol/L (21-32); Chloride 114 mmol/L (98-107); Glucose 117 mg/dL (74-106); Magnesium 2.4 mg/dL (1.6-2.6); Potassium 4.2 mmol/L (3.5-5.1); Sodium 144 mmol/L (136-145)
[2020-12-02 08:59] LABS: Alanine Aminotransferase 21 U/L (16-61); Alkaline Phosphatase 58 U/L (45-117); Aspartate Aminotransferase 11 U/L (15-37); BUN/Creatinine Ratio 13.5; GFR African American 89 mL/min; GFR Non-African American 74 mL/min; Total Protein 7.5 g/dL (6.4-8.2)
[2020-12-02] MEDS ORDERED: FUROSEMIDE 40 MG/4 ML VIAL IV ONE (10:30)
[2020-12-02] MEDS ORDERED: SPIRONOLACTONE 25 MG TAB PO ONE (10:30)
[2020-12-02] MEDS ORDERED: IOHEXOL 350 MG/ML 100ML IJ ONE (10:50)
[2020-12-02 11:21] LABS: Urine WBC None Seen /hpf (0 - 3)
[2020-12-02 11:29] LABS: Urine Bacteria NONE SEEN /hpf (None Seen); Urine Blood Negative /uL (Negative); Urine Mucus FEW (None Seen); Urine Specific Gravity 1.027 (1.001-1.035)
[2020-12-02] MEDS ORDERED: HEPARIN SODIUM (PORCINE) 5000 UNITS/ML 1ML VIAL IV ONE ×3 (12:00→21:15)
[2020-12-02] MEDS ORDERED: HEPARIN SODIUM (PORCINE) 5000 UNITS/ML 1ML VIAL ONE (12:26)
[2020-12-02] MEDS: HEPARIN DRIP/D5W 100UNITS/ML 250 ML IV SCH (12:54)
[2020-12-02] MEDS ORDERED: ACETAMINOPHEN 500 MG TAB PO PRN (13:00)
[2020-12-02] MEDS ORDERED: ONDANSETRON HCL 4 MG/2 ML VIAL IV PRN (13:00)
[2020-12-02] MEDS ORDERED: MORPHINE SULF INJ 2 MG/ML SYRINGE 1ML IV PRN ×2 (13:00)
[2020-12-02] MEDS ORDERED: HYDROcodone-ACET 5/325MG TAB PO PRN (13:00)
[2020-12-02] MEDS ORDERED: NITROGLYCERIN 0.4 MG SL TAB SL PRN (13:00)
[2020-12-02 17:55] VITALS: BP_SYST 123; BP_SYST 127; BP_DIAS 73
[2020-12-02 20:00] VITALS: BP 136/72
[2020-12-02 20:11] LABS: INR 0.98 (0.9-1.15); Partial Thromboplastin Time 27.3 sec (23.0-31.2)
[2020-12-02 22:02] VITALS: BP 136/72
[2020-12-03] MEDS: HEPARIN DRIP/D5W 100UNITS/ML 250 ML IV SCH ×2 (04:55→17:00)
[2020-12-03 05:15] VITALS: BP 140/78
[2020-12-03 07:19] LABS: Basophils # (auto) 0 10 ^3/uL (0-0.2); Basophils % (auto) 0.9 % (0.0-2.0); Eosinophils # (auto) 0.2 10 ^3/uL (0-0.8); Eosinophils % (auto) 3.4 % (0.0-7.0); Hematocrit 38.1 % (41.0-53.0); Hemoglobin 13.8 g/dL (13.5-17.5); Lymphocytes # (auto) 1.3 10 ^3/uL (0.4-5.4); Lymphocytes % (auto) 23.9 % (10.0-50.0); Mean Corpuscular Hemoglobin 32.3 pg (28.0-32.0); Mean Corpuscular Hgb Conc. 36.3 g/dL (32.0-36.0); Mean Corpuscular Volume 88.9 fL (80.0-100.0); Monocytes # (auto) 0.4 10 ^3/uL (0-1.3); Monocytes % (auto) 6.9 % (0.0-12.0); Neutrophils # (auto) 3.6 10 ^3/uL (1.6-8.6); Neutrophils % (auto) 64.9 % (37.0-80.0); Nucleated Red Blood Cells % 0.1 %; Red Blood Cells 4.28 10^6/uL (4.5-5.90); Red Cell Distribution Width 14.3 % (11.8-14.3); White Blood Cell 5.5 10^3/uL (4.4-10.8)
[2020-12-03 07:34] LABS: INR 0.99 (0.9-1.15); Partial Thromboplastin Time 29.2 sec (23.0-31.2)
[2020-12-03 07:40] LABS: Albumin 3.3 g/dL (3.4-5.0); Calcium 8.3 mg/dL (8.5-10.1); Potassium 3.9 mmol/L (3.5-5.1)
[2020-12-03 07:43] LABS: Bilirubin, Total 1.3 mg/dL (0.2-1.0)
[2020-12-03] MEDS ORDERED: HEPARIN SODIUM (PORCINE) 5000 UNITS/ML 1ML VIAL IV ONE (08:15)
[2020-12-03] MEDS ORDERED: HEPARIN DRIP/D5W 100UNITS/ML 250 ML IV SCH (08:30)
[2020-12-03 09:00] VITALS: BP 141/76
[2020-12-03] MEDS: FAMOTIDINE 20 MG TAB PO SCH (10:00)
[2020-12-03 13:00] VITALS: BP 146/93
[2020-12-03 15:57] LABS: INR 1.01 (0.9-1.15)
[2020-12-03 16:02] LABS: Partial Thromboplastin Time > 139.0 sec (23.0-31.2)
[2020-12-03 17:00] VITALS: BP 130/76
[2020-12-03 20:00] VITALS: BP 130/74
[2020-12-03 22:00] VITALS: BP 130/74
[2020-12-04 00:11] LABS: INR 1.01 (0.9-1.15)
[2020-12-04 00:14] LABS: Partial Thromboplastin Time > 139.0 sec (23.0-31.2)
[2020-12-04 05:00] VITALS: BP 131/66
[2020-12-04 07:01] LABS: INR 0.98 (0.9-1.15)
[2020-12-04 07:03] LABS: Partial Thromboplastin Time 78.1 sec (23.0-31.2)
[2020-12-04] MEDS: HEPARIN DRIP/D5W 100UNITS/ML 250 ML IV SCH (07:05)
[2020-12-04 09:00] VITALS: BP 146/74
[2020-12-04] MEDS: FAMOTIDINE 20 MG TAB PO SCH (10:10)
[2020-12-04 12:17] LABS: Partial Thromboplastin Time 104.4 sec (23.0-31.2)
[2020-12-04 13:00] VITALS: BP 147/78
[2020-12-04] MEDS: APIXABAN 5 MG TAB PO SCH ×2 (14:13→21:45)
[2020-12-04 17:00] VITALS: BP 121/75
[2020-12-04 23:26] VITALS: BP 144/72
[2020-12-05 05:23] VITALS: BP 145/78
[2020-12-05 09:00] VITALS: BP 144/69
[2020-12-05] MEDS: APIXABAN 5 MG TAB PO SCH (10:44)
[2020-12-05] MEDS: FAMOTIDINE 20 MG TAB PO SCH (10:45)
[2020-12-05 13:00] VITALS: BP 135/77
== END 2020-12-05 16:46 | disposition home or self-care (01) | DRG 175 ==
LOC: ER 07:39 → TELE 12:59 → TELE-WESTW 17:21
PROVIDERS: ADMIT Nurse Practitioner Acute Care; ATTEND Family Medicine
DX: I26.94 Multiple subsegmental thrombotic pulmonary emboli without acute cor pulmonale (principal); J96.00 Acute respiratory failure, unspecified whether with hypoxia or hypercapnia; J98.11 Atelectasis; I27.20 Pulmonary hypertension, unspecified; E66.9 Obesity, unspecified; Z59.0 Homelessness; Z68.30 Body mass index [BMI] 30.0-30.9, adult; Z88.0 Allergy status to penicillin; Z20.822 Contact with and (suspected) exposure to COVID-19; I50.9 Heart failure, unspecified; I11.0 Hypertensive heart disease with heart failure; Z81.8 Family history of other mental and behavioral disorders; Z83.3 Family history of diabetes mellitus; K52.9 Noninfective gastroenteritis and colitis, unspecified
CPT/HCPCS: 36415; 71046; 71275; 80053; 81001; 82705; 82784; 83516; 83735; 83880; 84443; 84484; 85025; 85049; 85379; 85610; 85730; 86255; 87045; 87426; 87427; 87493; 93005; 93306; 93970; 96365; 96375; 96376; G0378

== ENCOUNTER 2021-01-14 08:14 | Emergency (ER) | payer SELFPAY ==
[~2021-01-14] VITALS: Ht 165.1 cm; Wt 81.6 kg
[2021-01-14 10:12] LABS: Albumin 3.6 g/dL (3.4-5.0); Anion Gap 4 (5-15); BUN/Creatinine Ratio 13.7; Blood Urea Nitrogen 14 mg/dL (7-18); Calcium 8.3 mg/dL (8.5-10.1); Carbon Dioxide 25 mmol/L (21-32); Chloride 110 mmol/L (98-107); GFR African American 91 mL/min; GFR Non-African American 75 mL/min; Glucose 113 mg/dL (74-106); Potassium 3.9 mmol/L (3.5-5.1); Sodium 139 mmol/L (136-145)
[2021-01-14 10:13] LABS: Basophils # (auto) 0 10 ^3/uL (0-0.2); Basophils % (auto) 0.5 % (0.0-2.0); Eosinophils # (auto) 0.2 10 ^3/uL (0-0.8); Eosinophils % (auto) 3.2 % (0.0-7.0); Hematocrit 42.6 % (41.0-53.0); Hemoglobin 14.6 g/dL (13.5-17.5); Lymphocytes # (auto) 1.4 10 ^3/uL (0.4-5.4); Lymphocytes % (auto) 25.9 % (10.0-50.0); Mean Corpuscular Hgb Conc. 34.3 g/dL (32.0-36.0); Mean Corpuscular Volume 90.2 fL (80.0-100.0); Monocytes # (auto) 0.3 10 ^3/uL (0-1.3); Neutrophils # (auto) 3.4 10 ^3/uL (1.6-8.6); Neutrophils % (auto) 64.4 % (37.0-80.0); Nucleated Red Blood Cells % 0.3 %; Red Blood Cells 4.72 10^6/uL (4.5-5.90); Red Cell Distribution Width 14.3 % (11.8-14.3); White Blood Cell 5.2 10^3/uL (4.4-10.8)
[2021-01-14 10:16] LABS: Alanine Aminotransferase 24 U/L (16-61); Alkaline Phosphatase 60 U/L (45-117); Aspartate Aminotransferase 10 U/L (15-37); Bilirubin, Total 1.6 mg/dL (0.2-1.0); Total Protein 7.6 g/dL (6.4-8.2)
[2021-01-14 12:15] VITALS: BP 128/76
== END 2021-01-14 12:16 | disposition home or self-care (01) ==
LOC: ER 08:14
DX: R22.43 Localized swelling, mass and lump, lower limb, bilateral (principal); I11.0 Hypertensive heart disease with heart failure; I50.9 Heart failure, unspecified; Z88.0 Allergy status to penicillin; Z90.49 Acquired absence of other specified parts of digestive tract; Z98.890 Other specified postprocedural states
CPT/HCPCS: 36415; 80053; 84484; 85025; 85379; 93005; 93970

== ENCOUNTER 2021-02-06 11:20 | Emergency (ER) | payer OTHER ==
[~2021-02-06] VITALS: Ht 165.1 cm; Wt 86.2 kg
[2021-02-06 11:25] VITALS: BP 157/91
[2021-02-06 12:11] LABS: Basophils # (auto) 0 10 ^3/uL (0-0.2); Basophils % (auto) 0.4 % (0.0-2.0); Eosinophils # (auto) 0.2 10 ^3/uL (0-0.8); Eosinophils % (auto) 3.7 % (0.0-7.0); Hematocrit 41.6 % (41.0-53.0); Hemoglobin 14.2 g/dL (13.5-17.5); Lymphocytes # (auto) 1.3 10 ^3/uL (0.4-5.4); Mean Corpuscular Hgb Conc. 34.2 g/dL (32.0-36.0); Mean Corpuscular Volume 90.4 fL (80.0-100.0); Monocytes # (auto) 0.4 10 ^3/uL (0-1.3); Monocytes % (auto) 7.9 % (0.0-12.0); Neutrophils # (auto) 3.5 10 ^3/uL (1.6-8.6); Nucleated Red Blood Cells % 0.1 %; Red Blood Cells 4.59 10^6/uL (4.5-5.90); Red Cell Distribution Width 14.5 % (11.8-14.3); White Blood Cell 5.4 10^3/uL (4.4-10.8)
== END 2021-02-06 18:12 | disposition left against medical advice (07) ==
LOC: ER 11:20
DX: I11.0 Hypertensive heart disease with heart failure (principal); I50.9 Heart failure, unspecified; R22.43 Localized swelling, mass and lump, lower limb, bilateral; Z90.49 Acquired absence of other specified parts of digestive tract; Z88.0 Allergy status to penicillin
CPT/HCPCS: 36415; 83880; 84484; 85025

== ENCOUNTER 2021-07-30 13:34 | Emergency (ER) | payer OTHER ==
[~2021-07-30] VITALS: Ht 172.7 cm; Wt 90.7 kg
[2021-07-30] MEDS ORDERED: SODIUM CHLORIDE 0.9% 1,000 ML IV ONE (13:45)
[2021-07-30 14:14] VITALS: BP 178/90
[2021-07-30 14:59] LABS: Basophils # (auto) 0.1 10 ^3/uL (0-0.2); Basophils % (auto) 1.1 % (0.0-2.0); Eosinophils # (auto) 0.1 10 ^3/uL (0-0.8); Eosinophils % (auto) 2.3 % (0.0-7.0); Hematocrit 39.1 % (41.0-53.0); Hemoglobin 13.7 g/dL (13.5-17.5); Lymphocytes % (auto) 20.2 % (10.0-50.0); Mean Corpuscular Hemoglobin 31.3 pg (28.0-32.0); Mean Corpuscular Volume 89.4 fL (80.0-100.0); Monocytes # (auto) 0.3 10 ^3/uL (0-1.3); Monocytes % (auto) 5.5 % (0.0-12.0); Neutrophils # (auto) 3.6 10 ^3/uL (1.6-8.6); Neutrophils % (auto) 70.9 % (37.0-80.0); Nucleated Red Blood Cells % 0.1 %; Red Blood Cells 4.38 10^6/uL (4.5-5.90); Red Cell Distribution Width 15.1 % (11.8-14.3); White Blood Cell 5.1 10^3/uL (4.4-10.8)
[2021-07-30 15:09] LABS: Albumin 3.5 g/dL (3.4-5.0); Calcium 8.3 mg/dL (8.5-10.1)
[2021-07-30 15:14] LABS: Bilirubin, Total 1.4 mg/dL (0.2-1.0); Total Protein 7.2 g/dL (6.4-8.2)
[2021-07-30 15:16] LABS: INR 1.02 (0.9-1.15); Partial Thromboplastin Time 28.9 sec (23.6-33.0)
== END 2021-07-30 16:06 | disposition home or self-care (01) ==
LOC: ER 13:34 → EDBD 13:34 → ER 16:06
DX: R42 Dizziness and giddiness (principal); I11.0 Hypertensive heart disease with heart failure; I50.9 Heart failure, unspecified; Z90.49 Acquired absence of other specified parts of digestive tract
CPT/HCPCS: 36415; 70450; 71045; 80053; 83880; 84484; 85025; 85610; 85730; 93005; 96360; 96361; 99285; J7030

== ENCOUNTER 2021-08-16 04:47 | Emergency (ER) | payer MEDICARE, OTHER ==
[~2021-08-16] VITALS: Ht 165.1 cm; Wt 83.9 kg
[2021-08-16 05:24] LABS: Urine Bacteria NONE SEEN /hpf (None Seen); Urine Blood Negative /uL (Negative); Urine Mucus FEW (None Seen); Urine Specific Gravity 1.028 (1.001-1.035); Urine WBC 1 /hpf (0 - 3)
[2021-08-16 05:41] LABS: Basophils # (auto) 0 10 ^3/uL (0-0.2); Basophils % (auto) 0.5 % (0.0-2.0); Eosinophils # (auto) 0.1 10 ^3/uL (0-0.8); Eosinophils % (auto) 1.3 % (0.0-7.0); Hematocrit 38.9 % (41.0-53.0); Hemoglobin 13.6 g/dL (13.5-17.5); Lymphocytes # (auto) 1.4 10 ^3/uL (0.4-5.4); Lymphocytes % (auto) 23.1 % (10.0-50.0); Mean Corpuscular Hemoglobin 31.1 pg (28.0-32.0); Mean Corpuscular Hgb Conc. 34.8 g/dL (32.0-36.0); Mean Corpuscular Volume 89.2 fL (80.0-100.0); Monocytes # (auto) 0.4 10 ^3/uL (0-1.3); Monocytes % (auto) 6.4 % (0.0-12.0); Neutrophils # (auto) 4.2 10 ^3/uL (1.6-8.6); Neutrophils % (auto) 68.7 % (37.0-80.0); Nucleated Red Blood Cells % 0.1 %; Red Blood Cells 4.36 10^6/uL (4.5-5.90); Red Cell Distribution Width 15.4 % (11.8-14.3); White Blood Cell 6.2 10^3/uL (4.4-10.8)
[2021-08-16 05:45] LABS: Albumin 3.5 g/dL (3.4-5.0); Calcium 8.4 mg/dL (8.5-10.1); Potassium 3.9 mmol/L (3.5-5.1)
[2021-08-16 05:51] LABS: BUN/Creatinine Ratio 22.9; Bilirubin, Total 1.2 mg/dL (0.2-1.0); Total Protein 7.1 g/dL (6.4-8.2)
[2021-08-16 10:00] VITALS: BP 135/67
== END 2021-08-16 11:20 | disposition left against medical advice (07) ==
LOC: ER 04:47
DX: R42 Dizziness and giddiness (principal); M16.0 Bilateral primary osteoarthritis of hip; I11.0 Hypertensive heart disease with heart failure; I50.9 Heart failure, unspecified; Z90.49 Acquired absence of other specified parts of digestive tract
CPT/HCPCS: 36415; 70450; 71045; 72192; 80053; 81001; 83880; 84484; 85025; 93005

== ENCOUNTER 2021-08-24 21:02 | Emergency (ER) | payer MEDICARE ==
[~2021-08-24] VITALS: Ht 165.1 cm; Wt 90.7 kg
[2021-08-24 23:27] LABS: Basophils # (auto) 0.1 10 ^3/uL (0-0.2); Basophils % (auto) 0.8 % (0.0-2.0); Eosinophils # (auto) 0.1 10 ^3/uL (0-0.8); Eosinophils % (auto) 0.7 % (0.0-7.0); Hematocrit 38.8 % (41.0-53.0); Hemoglobin 13.5 g/dL (13.5-17.5); Lymphocytes # (auto) 1.5 10 ^3/uL (0.4-5.4); Lymphocytes % (auto) 20.8 % (10.0-50.0); Mean Corpuscular Hemoglobin 31.2 pg (28.0-32.0); Mean Corpuscular Hgb Conc. 34.9 g/dL (32.0-36.0); Mean Corpuscular Volume 89.5 fL (80.0-100.0); Monocytes # (auto) 0.5 10 ^3/uL (0-1.3); Monocytes % (auto) 6.8 % (0.0-12.0); Neutrophils # (auto) 5.2 10 ^3/uL (1.6-8.6); Neutrophils % (auto) 70.9 % (37.0-80.0); Nucleated Red Blood Cells % 0.3 %; Red Blood Cells 4.34 10^6/uL (4.5-5.90); Red Cell Distribution Width 15.4 % (11.8-14.3); White Blood Cell 7.3 10^3/uL (4.4-10.8)
[2021-08-24 23:43] LABS: Albumin 3.5 g/dL (3.4-5.0); Calcium 8.6 mg/dL (8.5-10.1)
[2021-08-24 23:45] LABS: BUN/Creatinine Ratio 18.4
[2021-08-24 23:49] LABS: Bilirubin, Total 1.3 mg/dL (0.2-1.0)
[2021-08-25 06:00] VITALS: BP 112/55
== END 2021-08-25 08:44 | disposition home or self-care (01) ==
LOC: EDBD 21:02 → ER 21:07
DX: R42 Dizziness and giddiness (principal); R19.7 Diarrhea, unspecified; I11.0 Hypertensive heart disease with heart failure; I50.9 Heart failure, unspecified; Z90.49 Acquired absence of other specified parts of digestive tract; Z88.0 Allergy status to penicillin
CPT/HCPCS: 36415; 71045; 80053; 83880; 84484; 85025; 93005

== ENCOUNTER 2021-10-17 01:05 | Inpatient (IN) | payer MEDICARE ==
[~2021-10-17] VITALS: Ht 162.6 cm; Wt 83.2 kg
[2021-10-17 02:17] LABS: Basophils # (auto) 0 10 ^3/uL (0-0.2); Basophils % (auto) 0.4 % (0.0-2.0); Eosinophils # (auto) 0.1 10 ^3/uL (0-0.8); Eosinophils % (auto) 1.4 % (0.0-7.0); Hematocrit 40.7 % (41.0-53.0); Hemoglobin 13.9 g/dL (13.5-17.5); Lymphocytes # (auto) 1.5 10 ^3/uL (0.4-5.4); Lymphocytes % (auto) 22.4 % (10.0-50.0); Mean Corpuscular Hemoglobin 30.9 pg (28.0-32.0); Mean Corpuscular Hgb Conc. 34.2 g/dL (32.0-36.0); Mean Corpuscular Volume 90.3 fL (80.0-100.0); Monocytes # (auto) 0.4 10 ^3/uL (0-1.3); Monocytes % (auto) 6.6 % (0.0-12.0); Neutrophils # (auto) 4.7 10 ^3/uL (1.6-8.6); Neutrophils % (auto) 69.2 % (37.0-80.0); Nucleated Red Blood Cells % 0.1 %; Red Blood Cells 4.51 10^6/uL (4.5-5.90); Red Cell Distribution Width 14.5 % (11.8-14.3); White Blood Cell 6.8 10^3/uL (4.4-10.8)
[2021-10-17 02:21] LABS: Albumin 3.5 g/dL (3.4-5.0); BUN/Creatinine Ratio 14.2; Calcium 8.6 mg/dL (8.5-10.1)
[2021-10-17 02:23] LABS: Bilirubin, Total 1.4 mg/dL (0.2-1.0); Total Protein 7.3 g/dL (6.4-8.2)
[2021-10-17] MEDS ORDERED: SODIUM CHLORIDE 0.9% 1,000 ML IV ONE (08:00)
[2021-10-17] MEDS ORDERED: MORPHINE SULFATE 4 MG/ML SYR/VIAL IV ONE (08:00)
[2021-10-17] MEDS ORDERED: METOCLOPRAMIDE HCL 5MG/ml INJ 2ml VIAL IV ONE (08:00)
[2021-10-17] MEDS ORDERED: IOHEXOL 300 MG/ML 100ML BOTTLE IJ ONE (08:04)
[2021-10-17 08:18] LABS: Urine Bacteria NONE SEEN /hpf (None Seen); Urine Blood Negative /uL (Negative); Urine Specific Gravity 1.026 (1.001-1.035); Urine WBC 2 /hpf (0 - 3)
[2021-10-17 08:28] LABS: Magnesium 2.4 mg/dL (1.6-2.6)
[2021-10-17] MEDS ORDERED: cefTRIAXone 1GM/50ML D5W 50 ML IV ONE (13:45)
[2021-10-17] MEDS ORDERED: metroNIDAZOLE 500MG/100ML 100 ML IV ONE (13:45)
[2021-10-17] MEDS ORDERED: NITROGLYCERIN 0.4 MG SL TAB SL PRN (15:15)
[2021-10-17] MEDS ORDERED: MORPHINE SULFATE INJ 2 MG/ml SYRG IV PRN ×2 (15:15→16:00)
[2021-10-17] MEDS ORDERED: PANTOPRAZOLE 40 MG/10 ML VIAL INJ IV ONE (16:00)
[2021-10-17] MEDS ORDERED: ONDANSETRON HCL 4 MG/2 ML VIAL IV PRN (16:00)
[2021-10-17] MEDS ORDERED: hydrALAZINE HCL 20 MG/ML VL IV PRN (16:00)
[2021-10-17] MEDS ORDERED: HYDROcodone-ACET 5/325MG TAB PO PRN (16:00)
[2021-10-17] MEDS ORDERED: LORazepam 0.5 MG TAB PO PRN (16:00)
[2021-10-17] MEDS ORDERED: DOCUSATE SOD 100 MG CAP PO PRN (16:00)
[2021-10-17 16:28] LABS: Magnesium 2.2 mg/dL (1.6-2.6); Phosphorus 2.7 mg/dL (2.5-4.90)
[2021-10-17 17:14] LABS: INR 0.96 (0.9-1.15); Partial Thromboplastin Time 21.1 sec (23.6-33.0)
[2021-10-17] MEDS: FUROSEMIDE 20 MG/2 ML VIAL IV SCH (18:12)
[2021-10-17] MEDS ORDERED: ATORVASTATIN 20 MG TAB PO SCH (22:00)
[2021-10-17] MEDS: POTASSIUM CHL 20 Meq TABLET PO SCH (23:28)
[2021-10-17] MEDS: metroNIDAZOLE 500MG/100ML 100 ML IV SCH (23:28)
[2021-10-17] MEDS: ISOSORBIDE MONONITRATE 20 MG TAB PO SCH (23:49)
[2021-10-18] VITALS (7 sets, daily range): BP systolic 104–156; BP diastolic 62–104
[2021-10-18] MEDS: ACETAMINOPHEN 325 MG TAB PO PRN (04:07)
[2021-10-18] MEDS: FUROSEMIDE 20 MG/2 ML VIAL IV SCH (06:13)
[2021-10-18] MEDS: metroNIDAZOLE 500MG/100ML 100 ML IV SCH ×3 (06:13→22:42)
[2021-10-18] MEDS ORDERED: ENOXAPARIN SOD 40 MG/0.4 ML SYRINGE SC SCH (10:00)
[2021-10-18] MEDS ORDERED: PANTOPRAZOLE 40 MG/10 ML VIAL INJ IV SCH (10:00)
[2021-10-18] MEDS: POTASSIUM CHL 20 Meq TABLET PO SCH (11:07)
[2021-10-18] MEDS: levoFLOXacin 750MG 150 ML IV SCH (11:07)
[2021-10-18] MEDS: ISOSORBIDE MONONITRATE 20 MG TAB PO SCH (11:07)
[2021-10-18 11:30] LABS: Basophils # (auto) 0 10 ^3/uL (0-0.2); Basophils % (auto) 0.2 % (0.0-2.0); Eosinophils # (auto) 0.1 10 ^3/uL (0-0.8); Hematocrit 39.9 % (41.0-53.0); Hemoglobin 13.6 g/dL (13.5-17.5); Lymphocytes # (auto) 0.9 10 ^3/uL (0.4-5.4); Lymphocytes % (auto) 15.6 % (10.0-50.0); Mean Corpuscular Hemoglobin 30.8 pg (28.0-32.0); Mean Corpuscular Volume 90.6 fL (80.0-100.0); Monocytes # (auto) 0.4 10 ^3/uL (0-1.3); Monocytes % (auto) 6.7 % (0.0-12.0); Neutrophils # (auto) 4.6 10 ^3/uL (1.6-8.6); Neutrophils % (auto) 76.5 % (37.0-80.0); Red Cell Distribution Width 14.2 % (11.8-14.3)
[2021-10-18 11:41] LABS: Partial Thromboplastin Time 29.5 sec (23.6-33.0)
[2021-10-18 11:57] LABS: Magnesium 2.2 mg/dL (1.6-2.6); Potassium 3.7 mmol/L (3.5-5.1)
[2021-10-18 12:07] LABS: Albumin 3.4 g/dL (3.4-5.0); BUN/Creatinine Ratio 8.3; CRP High Sensitivity 1.2 mg/dL (< 0.3); Calcium 8.6 mg/dL (8.5-10.1); Phosphorus 2.6 mg/dL (2.5-4.90); Total Protein 6.7 g/dL (6.4-8.2); Uric Acid 6.6 mg/dL (3.5-7.2)
[2021-10-18] MEDS ORDERED: TPN PER PHARMACY 0 ML IV SCH (15:00)
[2021-10-18] MEDS ORDERED: MECLIZINE HCL 25 MG TAB PO PRN (15:15)
[2021-10-18] MEDS ORDERED: LIDOCAINE 1% (LOCAL ANESTH.) PF 5ml SDV ID ONE (18:30)
[2021-10-18] MEDS ORDERED: AMINO ACID INFUSION IN D10W 1,000 ML IV NR (20:00)
[2021-10-18] MEDS: SODIUM CHLOR 0.9% PF (SALINE LOCK) 10ML VIAL/SYR IV SCH (22:00)
[2021-10-19] MEDS ORDERED: DEXTROSE (50%) 50ML SYRG IV SCH
[2021-10-19] MEDS: ACCU-CHEK COMFORT CURVE STRIP VI SCH ×4 (00:05→17:25)
[2021-10-19 04:34] VITALS: BP 154/80
[2021-10-19 06:16] LABS: Basophils # (auto) 0 10 ^3/uL (0-0.2); Basophils % (auto) 0.4 % (0.0-2.0); Eosinophils # (auto) 0 10 ^3/uL (0-0.8); Eosinophils % (auto) 0.7 % (0.0-7.0); Hematocrit 37.3 % (41.0-53.0); Hemoglobin 13.2 g/dL (13.5-17.5); Lymphocytes # (auto) 0.9 10 ^3/uL (0.4-5.4); Mean Corpuscular Hemoglobin 32.2 pg (28.0-32.0); Mean Corpuscular Hgb Conc. 35.4 g/dL (32.0-36.0); Mean Corpuscular Volume 90.7 fL (80.0-100.0); Monocytes # (auto) 0.5 10 ^3/uL (0-1.3); Monocytes % (auto) 8.4 % (0.0-12.0); Neutrophils # (auto) 4.5 10 ^3/uL (1.6-8.6); Neutrophils % (auto) 75.5 % (37.0-80.0); Nucleated Red Blood Cells % 0.2 %; Red Blood Cells 4.11 10^6/uL (4.5-5.90); Red Cell Distribution Width 14.1 % (11.8-14.3)
[2021-10-19 06:22] LABS: Calcium 8.3 mg/dL (8.5-10.1); Magnesium 2.5 mg/dL (1.6-2.6); Potassium 3.9 mmol/L (3.5-5.1)
[2021-10-19 06:28] LABS: BUN/Creatinine Ratio 8.2; Bilirubin, Total 2.3 mg/dL (0.2-1.0); Total Protein 6.6 g/dL (6.4-8.2)
[2021-10-19] MEDS: metroNIDAZOLE 500MG/100ML 100 ML IV SCH ×3 (06:40→22:27)
[2021-10-19] MEDS: InsuLIN REG 1unit/0.01ml Soln (100units/ml) SC SCH ×4 (06:51→17:25)
[2021-10-19] MEDS ORDERED: SODIUM PHOSP 40 MEQ in D5W 5% 250 ML IV ONE (08:45)
[2021-10-19 09:00] VITALS: BP 147/91
[2021-10-19] MEDS ORDERED: SODIUM PHOSPHATES 30 MEQ in D5W 5% 250 ML IV ONE (09:00)
[2021-10-19] MEDS: levoFLOXacin 750MG 150 ML IV SCH (09:40)
[2021-10-19] MEDS: FUROSEMIDE 20 MG/2 ML VIAL IV SCH (09:40)
[2021-10-19] MEDS: POTASSIUM CHL 20 Meq TABLET PO SCH (09:40)
[2021-10-19] MEDS: SODIUM CHLOR 0.9% PF (SALINE LOCK) 10ML VIAL/SYR IV SCH ×2 (09:41→22:27)
[2021-10-19 13:00] VITALS: BP 140/80
[2021-10-19 16:59] VITALS: BP 136/81
[2021-10-19] MEDS ORDERED: TPN PER PHARMACY IV NR ×8 (20:00)
[2021-10-19 22:00] VITALS: BP 143/83
[2021-10-20] MEDS: ACCU-CHEK COMFORT CURVE STRIP VI SCH ×4 (00:24→17:03)
[2021-10-20] MEDS: InsuLIN REG 1unit/0.01ml Soln (100units/ml) SC SCH ×4 (00:28→17:04)
[2021-10-20 05:00] VITALS: BP 116/73
[2021-10-20] MEDS: metroNIDAZOLE 500MG/100ML 100 ML IV SCH ×3 (05:47→21:48)
[2021-10-20] MEDS ORDERED: IOHEXOL 300 MG/ML 100ML BOTTLE IJ ONE (07:24)
[2021-10-20 09:00] VITALS: BP_SYST 131; BP_SYST 143; BP_DIAS 75; BP_DIAS 83
[2021-10-20] MEDS: FUROSEMIDE 20 MG/2 ML VIAL IV SCH (09:42)
[2021-10-20] MEDS: levoFLOXacin 750MG 150 ML IV SCH (09:43)
[2021-10-20] MEDS: SODIUM CHLOR 0.9% PF (SALINE LOCK) 10ML VIAL/SYR IV SCH ×2 (09:43→21:48)
[2021-10-20] MEDS: POTASSIUM CHL 20 Meq TABLET PO SCH (09:43)
[2021-10-20 11:34] LABS: Albumin 3.5 g/dL (3.4-5.0); BUN/Creatinine Ratio 12.5; Calcium 8.7 mg/dL (8.5-10.1); Magnesium 2.4 mg/dL (1.6-2.6); Potassium 4.5 mmol/L (3.5-5.1)
[2021-10-20 13:00] VITALS: BP 130/83
[2021-10-20 17:00] VITALS: BP 120/78
[2021-10-20] MEDS ORDERED: TPN PER PHARMACY IV NR ×6 (20:00)
[2021-10-20 22:00] VITALS: BP 106/70
[2021-10-21] MEDS: ACCU-CHEK COMFORT CURVE STRIP VI SCH ×4 (00:19→18:10)
[2021-10-21] MEDS: InsuLIN REG 1unit/0.01ml Soln (100units/ml) SC SCH ×4 (00:21→18:00)
[2021-10-21 05:00] VITALS: BP 115/64
[2021-10-21] MEDS: metroNIDAZOLE 500MG/100ML 100 ML IV SCH ×3 (05:29→21:28)
[2021-10-21 06:23] LABS: Albumin 2.9 g/dL (3.4-5.0); Calcium 8.7 mg/dL (8.5-10.1); Potassium 3.5 mmol/L (3.5-5.1)
[2021-10-21 06:25] LABS: BUN/Creatinine Ratio 17.1; Phosphorus 3.2 mg/dL (2.5-4.90)
[2021-10-21 09:00] VITALS: BP 133/72
[2021-10-21] MEDS: SODIUM CHLOR 0.9% PF (SALINE LOCK) 10ML VIAL/SYR IV SCH (09:03)
[2021-10-21] MEDS: levoFLOXacin 750MG 150 ML IV SCH (09:03)
[2021-10-21] MEDS: FUROSEMIDE 20 MG/2 ML VIAL IV SCH (09:03)
[2021-10-21] MEDS: POTASSIUM CHL 20 Meq TABLET PO SCH (09:04)
[2021-10-21] MEDS ORDERED: POTASSIUM CHL 20MEQ/100ML 100 ML IV ONE (11:45)
[2021-10-21 12:39] VITALS: BP 150/89
[2021-10-21 17:00] VITALS: BP 108/71
[2021-10-21] MEDS ORDERED: TPN PER PHARMACY IV NR ×8 (20:00)
[2021-10-21 22:00] VITALS: BP 125/77
[2021-10-22] MEDS: ACCU-CHEK COMFORT CURVE STRIP VI SCH ×4 (01:08→17:36)
[2021-10-22] MEDS: SODIUM CHLOR 0.9% PF (SALINE LOCK) 10ML VIAL/SYR IV SCH ×3 (01:09→21:52)
[2021-10-22] MEDS: InsuLIN REG 1unit/0.01ml Soln (100units/ml) SC SCH ×4 (01:09→17:37)
[2021-10-22 05:00] VITALS: BP 127/70
[2021-10-22 05:42] LABS: BUN/Creatinine Ratio 19.8; Calcium 8.7 mg/dL (8.5-10.1); Magnesium 2.1 mg/dL (1.6-2.6); Phosphorus 2.4 mg/dL (2.5-4.90); Potassium 4.2 mmol/L (3.5-5.1)
[2021-10-22] MEDS: metroNIDAZOLE 500MG/100ML 100 ML IV SCH ×3 (05:58→21:52)
[2021-10-22 09:00] VITALS: BP 158/70
[2021-10-22] MEDS: levoFLOXacin 750MG 150 ML IV SCH (09:36)
[2021-10-22] MEDS: POTASSIUM CHL 20 Meq TABLET PO SCH (09:36)
[2021-10-22] MEDS: FUROSEMIDE 20 MG/2 ML VIAL IV SCH (09:37)
[2021-10-22] MEDS ORDERED: SODIUM PHOSP 40 MEQ in D5W 5% 250 ML IV ONE (11:15)
[2021-10-22 13:00] VITALS: BP 128/84
[2021-10-22 17:02] VITALS: BP 145/74
[2021-10-22 17:47] LABS: Basophils # (auto) 0.1 10 ^3/uL (0-0.2); Basophils % (auto) 0.7 % (0.0-2.0); Eosinophils # (auto) 0.1 10 ^3/uL (0-0.8); Eosinophils % (auto) 1.7 % (0.0-7.0); Hematocrit 41.9 % (41.0-53.0); Hemoglobin 14.8 g/dL (13.5-17.5); Lymphocytes # (auto) 1.4 10 ^3/uL (0.4-5.4); Lymphocytes % (auto) 18.9 % (10.0-50.0); Mean Corpuscular Hemoglobin 31.8 pg (28.0-32.0); Mean Corpuscular Hgb Conc. 35.4 g/dL (32.0-36.0); Mean Corpuscular Volume 89.7 fL (80.0-100.0); Monocytes # (auto) 0.5 10 ^3/uL (0-1.3); Monocytes % (auto) 6.5 % (0.0-12.0); Neutrophils # (auto) 5.4 10 ^3/uL (1.6-8.6); Neutrophils % (auto) 72.2 % (37.0-80.0); Nucleated Red Blood Cells % 0.4 %; Red Blood Cells 4.67 10^6/uL (4.5-5.90); Red Cell Distribution Width 14.1 % (11.8-14.3); White Blood Cell 7.5 10^3/uL (4.4-10.8)
[2021-10-22] MEDS ORDERED: TPN PER PHARMACY IV NR ×8 (20:00)
[2021-10-22 22:00] VITALS: BP 125/69
[2021-10-23] MEDS: ACCU-CHEK COMFORT CURVE STRIP VI SCH ×5 (00:09→23:47)
[2021-10-23] MEDS: InsuLIN REG 1unit/0.01ml Soln (100units/ml) SC SCH ×5 (00:10→23:47)
[2021-10-23] MEDS: ACETAMINOPHEN 325 MG TAB PO PRN (02:45)
[2021-10-23 05:02] VITALS: BP 124/58
[2021-10-23] MEDS: metroNIDAZOLE 500MG/100ML 100 ML IV SCH ×3 (06:40→21:57)
[2021-10-23 08:56] VITALS: BP 114/71
[2021-10-23] MEDS: FUROSEMIDE 20 MG/2 ML VIAL IV SCH (10:14)
[2021-10-23] MEDS: SODIUM CHLOR 0.9% PF (SALINE LOCK) 10ML VIAL/SYR IV SCH ×2 (10:15→21:56)
[2021-10-23] MEDS: levoFLOXacin 750MG 150 ML IV SCH (10:15)
[2021-10-23] MEDS: POTASSIUM CHL 20 Meq TABLET PO SCH (10:15)
[2021-10-23 13:00] VITALS: BP 110/58
[2021-10-23 14:14] LABS: Basophils # (auto) 0 10 ^3/uL (0-0.2); Basophils % (auto) 0.4 % (0.0-2.0); Eosinophils # (auto) 0.1 10 ^3/uL (0-0.8); Eosinophils % (auto) 1.5 % (0.0-7.0); Hematocrit 43.3 % (41.0-53.0); Lymphocytes # (auto) 1.1 10 ^3/uL (0.4-5.4); Lymphocytes % (auto) 15.4 % (10.0-50.0); Mean Corpuscular Hemoglobin 31.6 pg (28.0-32.0); Mean Corpuscular Hgb Conc. 34.5 g/dL (32.0-36.0); Mean Corpuscular Volume 91.4 fL (80.0-100.0); Monocytes # (auto) 0.5 10 ^3/uL (0-1.3); Monocytes % (auto) 6.6 % (0.0-12.0); Neutrophils # (auto) 5.6 10 ^3/uL (1.6-8.6); Neutrophils % (auto) 76.1 % (37.0-80.0); Nucleated Red Blood Cells % 0.2 %; Red Blood Cells 4.74 10^6/uL (4.5-5.90); Red Cell Distribution Width 14.3 % (11.8-14.3); White Blood Cell 7.4 10^3/uL (4.4-10.8)
[2021-10-23 14:38] LABS: Calcium 8.5 mg/dL (8.5-10.1); Potassium 4.6 mmol/L (3.5-5.1)
[2021-10-23 14:44] LABS: Albumin 3.2 g/dL (3.4-5.0); BUN/Creatinine Ratio 19.4; Bilirubin, Total 0.9 mg/dL (0.2-1.0); Magnesium 2.7 mg/dL (1.6-2.6); Phosphorus 2.3 mg/dL (2.5-4.90); Total Protein 7.5 g/dL (6.4-8.2)
[2021-10-23] MEDS ORDERED: SODIUM PHOSPHATES 24 MEQ in SODIUM CHL 0.9% 100 ML IV ONE (15:15)
[2021-10-23 16:43] VITALS: BP 137/87
[2021-10-23] MEDS ORDERED: AMINO ACID INFUSION IN D10W 1,000 ML IV NR (20:00)
[2021-10-23 22:00] VITALS: BP 119/72
[2021-10-24 05:00] VITALS: BP 131/72
[2021-10-24 05:21] LABS: Albumin 3.2 g/dL (3.4-5.0); Calcium 8.2 mg/dL (8.5-10.1); Magnesium 2.5 mg/dL (1.6-2.6); Potassium 3.8 mmol/L (3.5-5.1)
[2021-10-24 05:25] LABS: BUN/Creatinine Ratio 16.5; Bilirubin, Total 0.9 mg/dL (0.2-1.0); Phosphorus 2.3 mg/dL (2.5-4.90); Total Protein 6.9 g/dL (6.4-8.2)
[2021-10-24 05:42] LABS: Basophils # (auto) 0 10 ^3/uL (0-0.2); Basophils % (auto) 0.5 % (0.0-2.0); Eosinophils # (auto) 0.1 10 ^3/uL (0-0.8); Eosinophils % (auto) 1.5 % (0.0-7.0); Hematocrit 40.1 % (41.0-53.0); Hemoglobin 14.1 g/dL (13.5-17.5); Lymphocytes # (auto) 1.2 10 ^3/uL (0.4-5.4); Lymphocytes % (auto) 18.8 % (10.0-50.0); Mean Corpuscular Hemoglobin 31.4 pg (28.0-32.0); Mean Corpuscular Hgb Conc. 35.2 g/dL (32.0-36.0); Mean Corpuscular Volume 89.1 fL (80.0-100.0); Monocytes # (auto) 0.5 10 ^3/uL (0-1.3); Monocytes % (auto) 7.9 % (0.0-12.0); Neutrophils # (auto) 4.4 10 ^3/uL (1.6-8.6); Neutrophils % (auto) 71.3 % (37.0-80.0); Nucleated Red Blood Cells % 0.1 %; Red Cell Distribution Width 13.9 % (11.8-14.3); White Blood Cell 6.2 10^3/uL (4.4-10.8)
[2021-10-24] MEDS: metroNIDAZOLE 500MG/100ML 100 ML IV SCH ×3 (05:49→21:23)
[2021-10-24] MEDS: InsuLIN REG 1unit/0.01ml Soln (100units/ml) SC SCH ×4 (05:49→23:54)
[2021-10-24] MEDS: ACCU-CHEK COMFORT CURVE STRIP VI SCH ×2 (05:49→11:57)
[2021-10-24] MEDS ORDERED: POTASSIUM PHOSPHATE 22 MEQ in SODIUM CHL 0.9% 100 ML IV ONE (08:45)
[2021-10-24 09:22] VITALS: BP 130/82
[2021-10-24] MEDS: FUROSEMIDE 20 MG/2 ML VIAL IV SCH (10:28)
[2021-10-24] MEDS: levoFLOXacin 750MG 150 ML IV SCH (10:29)
[2021-10-24] MEDS: SODIUM CHLOR 0.9% PF (SALINE LOCK) 10ML VIAL/SYR IV SCH ×2 (10:29→21:23)
[2021-10-24] MEDS: POTASSIUM CHL 20 Meq TABLET PO SCH (10:29)
[2021-10-24] MEDS ORDERED: PANTOPRAZOLE 40 MG TAB PO ONE (12:00)
[2021-10-24 13:00] VITALS: BP 140/87
[2021-10-24 16:38] VITALS: BP 140/88
[2021-10-24] MEDS ORDERED: TPN PER PHARMACY IV NR ×8 (20:00)
[2021-10-24 22:00] VITALS: BP 125/77
[2021-10-25 05:00] VITALS: BP 132/65
[2021-10-25] MEDS: InsuLIN REG 1unit/0.01ml Soln (100units/ml) SC SCH ×2 (06:00→15:55)
[2021-10-25] MEDS: metroNIDAZOLE 500MG/100ML 100 ML IV SCH ×2 (06:17→14:34)
[2021-10-25 08:37] LABS: Basophils # (auto) 0.1 10 ^3/uL (0-0.2); Basophils % (auto) 2.4 % (0.0-2.0); Eosinophils # (auto) 0.1 10 ^3/uL (0-0.8); Eosinophils % (auto) 1.3 % (0.0-7.0); Hematocrit 38.2 % (41.0-53.0); Hemoglobin 13.5 g/dL (13.5-17.5); Mean Corpuscular Hemoglobin 31.6 pg (28.0-32.0); Mean Corpuscular Hgb Conc. 35.3 g/dL (32.0-36.0); Mean Corpuscular Volume 89.5 fL (80.0-100.0); Monocytes # (auto) 0.5 10 ^3/uL (0-1.3); Monocytes % (auto) 9.1 % (0.0-12.0); Neutrophils # (auto) 3.7 10 ^3/uL (1.6-8.6); Neutrophils % (auto) 68.2 % (37.0-80.0); Nucleated Red Blood Cells % 0.3 %; Red Blood Cells 4.27 10^6/uL (4.5-5.90); Red Cell Distribution Width 14.2 % (11.8-14.3); White Blood Cell 5.4 10^3/uL (4.4-10.8)
[2021-10-25 08:53] LABS: BUN/Creatinine Ratio 12.2; Calcium 8.5 mg/dL (8.5-10.1)
[2021-10-25 09:41] VITALS: BP 140/83
[2021-10-25] MEDS ORDERED: FUROSEMIDE 40 MG TAB PO SCH (10:00)
[2021-10-25] MEDS ORDERED: PANTOPRAZOLE 40 MG TAB PO SCH (10:00)
[2021-10-25] MEDS: levoFLOXacin 750MG 150 ML IV SCH (10:14)
[2021-10-25] MEDS: SODIUM CHLOR 0.9% PF (SALINE LOCK) 10ML VIAL/SYR IV SCH (10:15)
[2021-10-25] MEDS: POTASSIUM CHL 20 Meq TABLET PO SCH (10:15)
[2021-10-25] MEDS ORDERED: METR500T PO (12:57)
[2021-10-25] MEDS ORDERED: FURO40TA4 PO (12:57)
[2021-10-25] MEDS ORDERED: LEVO500T31 PO (12:57)
[2021-10-25] MEDS ORDERED: POTA-220 PO (12:57)
[2021-10-25 13:02] VITALS: BP 127/84
== END 2021-10-25 15:54 | disposition home or self-care (01) | DRG 391 ==
LOC: ER 01:05 → WEST WING 15:11
PROVIDERS: ADMIT Hospitalist; ATTEND Internal Medicine
PROC: 3E0336Z Introduction of Nutritional Substance into Peripheral Vein, Percutaneous Approach (ICD-10-PCS; principal; 2021-10-18)
DX: K57.80 Diverticulitis of intestine, part unspecified, with perforation and abscess without bleeding (principal); I50.43 Acute on chronic combined systolic (congestive) and diastolic (congestive) heart failure; E78.5 Hyperlipidemia, unspecified; I11.0 Hypertensive heart disease with heart failure; N40.0 Benign prostatic hyperplasia without lower urinary tract symptoms; Z20.822 Contact with and (suspected) exposure to COVID-19; E66.01 Morbid (severe) obesity due to excess calories; I27.9 Pulmonary heart disease, unspecified; J44.9 Chronic obstructive pulmonary disease, unspecified; R73.9 Hyperglycemia, unspecified; M19.90 Unspecified osteoarthritis, unspecified site; Z79.899 Other long term (current) drug therapy; Z59.00 Homelessness unspecified; Z86.711 Personal history of pulmonary embolism; Z87.19 Personal history of other diseases of the digestive system; Z90.49 Acquired absence of other specified parts of digestive tract; Z91.19 Patient's noncompliance with other medical treatment and regimen; Z88.0 Allergy status to penicillin; Z68.30 Body mass index [BMI] 30.0-30.9, adult
CPT/HCPCS: 36415; 36569; 71045; 71046; 74177; 80048; 80053; 80061; 80069; 81001; 82550; 82728; 82962; 83036; 83615; 83690; 83735; 83880; 84100; 84154; 84484; 84550; 85025; 85379; 85610; 85652; 85730; 86141; 87040; 87086; 93005; 93306; 96361; 96365; 96368; C9113; G0378; J0696; J1815; J1956; J2405; J3480; J3490; J7060

== ENCOUNTER 2022-11-09 06:52 | Emergency (ER) | payer MEDICARE ==
[~2022-11-09] VITALS: Ht 167.6 cm; Wt 105.0 kg
[~2022-11-09 06:52] MED LIST changes: +FURO40TA4 PO; +LEVO500T31 PO; +METR500T PO; -NAPR375T27; +POTA-220 PO; -VERA120T6
[2022-11-09 06:59] VITALS: BP 169/76
[2022-11-09] MEDS ORDERED: PROCHLORPERAZINE EDISYLATE 5 MG/ML 2ML VIAL IM ONE (15:15)
[2022-11-09] MEDS ORDERED: MORPHINE SULFATE 4 MG/ML SYR/VIAL IV ONE (15:15)
[2022-11-09] MEDS ORDERED: SODIUM CHLORIDE 0.9% 500 ML IV ONE (15:15)
== END 2022-11-09 08:18 | disposition left against medical advice (07) ==
LOC: EDBD 06:52 → ER 06:52
DX: R11.2 Nausea with vomiting, unspecified (principal); R94.31 Abnormal electrocardiogram [ECG] [EKG]; Z53.21 Procedure and treatment not carried out due to patient leaving prior to being seen by health care provider
CPT/HCPCS: 93005

== ENCOUNTER 2022-12-26 19:56 | Emergency (ER) | payer MEDICARE, OTHER ==
[~2022-12-26] VITALS: Ht 165.1 cm; Wt 115.0 kg
[2022-12-26 20:54] LABS: Basophils # (auto) 0 10 ^3/uL (0-0.2); Basophils % (auto) 0.7 % (0.0-2.0); Eosinophils # (auto) 0.2 10 ^3/uL (0-0.8); Eosinophils % (auto) 2.5 % (0.0-7.0); Hematocrit 39.3 % (41.0-53.0); Hemoglobin 13.6 g/dL (13.5-17.5); Lymphocytes # (auto) 1.4 10 ^3/uL (0.4-5.4); Lymphocytes % (auto) 22.1 % (10.0-50.0); Mean Corpuscular Hemoglobin 31.1 pg (28.0-32.0); Mean Corpuscular Hgb Conc. 34.6 g/dL (32.0-36.0); Monocytes # (auto) 0.6 10 ^3/uL (0-1.3); Monocytes % (auto) 8.5 % (0.0-12.0); Neutrophils # (auto) 4.3 10 ^3/uL (1.6-8.6); Neutrophils % (auto) 66.2 % (37.0-80.0); Red Blood Cells 4.37 10^6/uL (4.5-5.90); Red Cell Distribution Width 14.5 % (11.8-14.3); White Blood Cell 6.6 10^3/uL (4.4-10.8)
[2022-12-26 21:11] LABS: Albumin 3.6 g/dL (3.4-5.0); Calcium 8.8 mg/dL (8.5-10.1); Potassium 3.6 mmol/L (3.5-5.1)
[2022-12-26 21:12] LABS: INR 1.01 (0.9-1.15); Partial Thromboplastin Time 29.9 SEC (24.5-34.5)
[2022-12-26 21:15] LABS: BUN/Creatinine Ratio 17.2 (10.0-20.0); Bilirubin, Total 1.4 mg/dL (0.2-1.0); Total Protein 7.6 g/dL (6.4-8.2)
[2022-12-27] MEDS ORDERED: FURO1TAB33 PO (00:55)
[2022-12-27 02:05] VITALS: BP 140/67; PULSE 73; RESP 18; TEMP 98; O2SAT 98
== END 2022-12-27 02:20 | disposition home or self-care (01) ==
LOC: EDBD 19:56 → ER 19:56
DX: R60.0 Localized edema (principal); I11.0 Hypertensive heart disease with heart failure; I50.9 Heart failure, unspecified; Z90.49 Acquired absence of other specified parts of digestive tract; Z79.2 Long term (current) use of antibiotics; Z79.899 Other long term (current) drug therapy; Z88.0 Allergy status to penicillin
CPT/HCPCS: 36415; 80053; 83880; 84484; 85025; 85610; 85730; 93005

== ENCOUNTER 2023-01-17 03:57 | Emergency (ER) | payer MEDICARE, OTHER ==
[~2023-01-17] VITALS: Ht 165.1 cm; Wt 80.0 kg
[~2023-01-17 03:57] MED LIST changes: +FURO1TAB33 PO
[2023-01-17 04:42] LABS: Basophils # (auto) 0 10 ^3/uL (0-0.2); Basophils % (auto) 0.7 % (0.0-2.0); Eosinophils # (auto) 0.1 10 ^3/uL (0-0.8); Eosinophils % (auto) 2.5 % (0.0-7.0); Hematocrit 40.4 % (41.0-53.0); Hemoglobin 13.6 g/dL (13.5-17.5); Lymphocytes # (auto) 1.3 10 ^3/uL (0.4-5.4); Mean Corpuscular Hemoglobin 31.4 pg (28.0-32.0); Mean Corpuscular Hgb Conc. 33.6 g/dL (32.0-36.0); Mean Corpuscular Volume 93.6 fL (80.0-100.0); Monocytes # (auto) 0.5 10 ^3/uL (0-1.3); Monocytes % (auto) 9.2 % (0.0-12.0); Neutrophils # (auto) 3.8 10 ^3/uL (1.6-8.6); Neutrophils % (auto) 64.6 % (37.0-80.0); Nucleated Red Blood Cells % 0.2 %; Red Blood Cells 4.31 10^6/uL (4.5-5.90); Red Cell Distribution Width 15.5 % (11.8-14.3); White Blood Cell 5.9 10^3/uL (4.4-10.8)
[2023-01-17 04:52] LABS: Alanine Aminotransferase 17 U/L (7-40); Albumin 4.1 g/dL (3.2-4.8); Alkaline Phosphatase 60 U/L (46-116); Aspartate Aminotransferase 10 U/L (13-40); BUN/Creatinine Ratio 15.8 (10.0-20.0); Blood Urea Nitrogen 16 mg/dL (9-23); Calcium 8.8 mg/dL (8.7-10.4); Chloride 108 mmol/L (98-107); Glucose 118 mg/dL (74-106); Magnesium 1.9 mg/dL (1.6-2.6); Potassium 3.8 mmol/L (3.5-5.1); Sodium 141 mmol/L (136-145)
[2023-01-17 04:53] LABS: Bilirubin, Total 1.8 mg/dL (0.2-1.0); Total Protein 6.7 g/dL (5.7-8.2)
[2023-01-17 05:37] LABS: INR 1.01 (0.9-1.15); Partial Thromboplastin Time 31.9 SEC (24.5-34.5); Prothrombin Time 10.6 sec (9.3-11.8)
[2023-01-17 07:56] VITALS: BP 149/75; PULSE 78; RESP 20; TEMP 98.5; O2SAT 96
== END 2023-01-17 07:58 | disposition home or self-care (01) ==
LOC: ER 03:57 → EDBD 03:57 → ER 07:58
DX: R07.89 Other chest pain (principal); I11.0 Hypertensive heart disease with heart failure; I50.9 Heart failure, unspecified; Z90.49 Acquired absence of other specified parts of digestive tract; Z88.0 Allergy status to penicillin
CPT/HCPCS: 36415; 71045; 80053; 83735; 83880; 84484; 85025; 85610; 85730; 93005

== ENCOUNTER → 2023-01-21 | Emergency (ER) | payer MEDICARE ==
[~2023-01-21] VITALS: Ht 165.1 cm; Wt 83.6 kg
[2023-01-21 05:17] VITALS: BP 150/72; PULSE 71; RESP 16; O2SAT 97
== END | disposition home or self-care (01) ==
LOC: EDUNIT# 04:59 → ER 05:08 → EDBD 05:08
DX: K52.9 Noninfective gastroenteritis and colitis, unspecified (principal); I11.0 Hypertensive heart disease with heart failure; I50.89 Other heart failure; Z88.0 Allergy status to penicillin; Z79.899 Other long term (current) drug therapy; Z90.49 Acquired absence of other specified parts of digestive tract; Z98.890 Other specified postprocedural states; Z59.00 Homelessness unspecified

== ENCOUNTER 2023-01-31 06:57 | Emergency (ER) | payer MEDICARE ==
[~2023-01-31] VITALS: Ht 165.1 cm; Wt 83.0 kg
[2023-01-31 07:14] VITALS: BP 158/86; PULSE 74; RESP 16; O2SAT 96
== END 2023-01-31 07:42 | disposition left against medical advice (07) ==
LOC: ER 06:57 → EDBD 06:57 → ER 07:42
DX: R39.198 Other difficulties with micturition (principal); Z53.21 Procedure and treatment not carried out due to patient leaving prior to being seen by health care provider

== ENCOUNTER 2023-02-23 05:12 | Emergency (ER) | payer MEDICARE, OTHER ==
[~2023-02-23] VITALS: Ht 162.6 cm; Wt 80.0 kg
[~2023-02-23 05:12] MED LIST changes: +LEVO500T91 PO; +METR-344 PO
[2023-02-23 05:30] VITALS: PULSE 70; RESP 16; TEMP 98.4; O2SAT 95
[2023-02-23 05:53] LABS: Basophils # (auto) 0 10 ^3/uL (0-0.2); Basophils % (auto) 0.5 % (0.0-2.0); Eosinophils # (auto) 0.1 10 ^3/uL (0-0.8); Hematocrit 38.5 % (41.0-53.0); Lymphocytes % (auto) 19.9 % (10.0-50.0); Mean Corpuscular Hemoglobin 30.9 pg (28.0-32.0); Mean Corpuscular Hgb Conc. 33.9 g/dL (32.0-36.0); Mean Corpuscular Volume 91.3 fL (80.0-100.0); Monocytes # (auto) 0.3 10 ^3/uL (0-1.3); Monocytes % (auto) 6.5 % (0.0-12.0); Neutrophils # (auto) 3.6 10 ^3/uL (1.6-8.6); Neutrophils % (auto) 71.1 % (37.0-80.0); Red Blood Cells 4.21 10^6/uL (4.5-5.90); Red Cell Distribution Width 14.7 % (11.8-14.3); White Blood Cell 5.1 10^3/uL (4.4-10.8)
[2023-02-23 06:11] LABS: Alanine Aminotransferase 16 U/L (7-40); Albumin 3.5 g/dL (3.2-4.8); Alkaline Phosphatase 43 U/L (46-116); Anion Gap 5 (5-15); Aspartate Aminotransferase 10 U/L (13-40); Blood Urea Nitrogen 14 mg/dL (9-23); Calcium 8.2 mg/dL (8.7-10.4); Carbon Dioxide 26 mmol/L (20-30); Chloride 110 mmol/L (98-107); Glucose 144 mg/dL (74-106); Magnesium 1.8 mg/dL (1.6-2.6); Potassium 4.3 mmol/L (3.5-5.1); Sodium 141 mmol/L (136-145)
[2023-02-23 06:12] LABS: Bilirubin, Total 1.1 mg/dL (0.2-1.0); Total Protein 5.9 g/dL (5.7-8.2)
[2023-02-23 06:34] LABS: Urine Bacteria FEW /hpf (None Seen); Urine Blood 3+ /uL (Negative); Urine Clarity Clear (Clear); Urine Color Colorless (Yellow); Urine Hyaline Cast FEW /lpf (0 - 2); Urine Mucus FEW (None Seen); Urine Protein, UAD Negative (Negative); Urine Specific Gravity 1.013 (1.001-1.035); Urine Urobilinogen Normal (Negative); Urine WBC 1 /hpf (0 - 3)
[2023-02-23 07:38] LABS: Partial Thromboplastin Time 30.5 SEC (24.5-34.5); Prothrombin Time 10.5 sec (9.3-11.8)
[2023-02-23 07:55] VITALS: PULSE 62; RESP 17; O2SAT 96
[2023-02-23 11:22] VITALS: BP 122/66; PULSE 62; RESP 19; O2SAT 100
== END 2023-02-23 12:20 | disposition home or self-care (01) ==
LOC: EDBD 05:12 → ER 05:12
DX: R33.9 Retention of urine, unspecified (principal); I11.0 Hypertensive heart disease with heart failure; I50.9 Heart failure, unspecified; M19.90 Unspecified osteoarthritis, unspecified site; Z90.49 Acquired absence of other specified parts of digestive tract; Z98.890 Other specified postprocedural states; Z88.0 Allergy status to penicillin; Z79.899 Other long term (current) drug therapy
CPT/HCPCS: 36415; 51702; 71045; 74176; 80053; 81001; 83735; 83880; 84484; 85025; 85610; 85730; 93005

== ENCOUNTER 2023-03-07 02:35 | Inpatient (IN) | payer MEDICARE ==
[~2023-03-07] VITALS: Ht 165.1 cm; Wt 80.1 kg
[2023-03-07 03:22] LABS: Hemoglobin 13.2 g/dL (13.5-17.5)
[2023-03-07 03:25] LABS: Eosinophils # (auto) 0.1 10 ^3/uL (0-0.8); Hematocrit 38.9 % (41.0-53.0); Lymphocytes # (auto) 1.2 10 ^3/uL (0.4-5.4); Mean Corpuscular Hemoglobin 31.2 pg (28.0-32.0); Monocytes # (auto) 0.6 10 ^3/uL (0-1.3)
[2023-03-07 03:30] LABS: Alanine Aminotransferase 12 U/L (7-40); Albumin 4.1 g/dL (3.2-4.8); Alkaline Phosphatase 55 U/L (46-116); Anion Gap 8 (5-15); Aspartate Aminotransferase 15 U/L (13-40); Bilirubin, Total 1.1 mg/dL (0.2-1.0); Blood Urea Nitrogen 12 mg/dL (9-23); Carbon Dioxide 23 mmol/L (20-30); Chloride 110 mmol/L (98-107); Glucose 138 mg/dL (74-106); Potassium 4.2 mmol/L (3.5-5.1); Sodium 141 mmol/L (136-145); Total Protein 7.1 g/dL (5.7-8.2)
[2023-03-07 03:31] LABS: Basophils # (auto) 0.1 10 ^3/uL (0-0.2); Basophils % (auto) 0.8 % (0.0-2.0); Eosinophils % (auto) 1.7 % (0.0-7.0); Lymphocytes % (auto) 17.5 % (10.0-50.0); Mean Corpuscular Volume 91.8 fL (80.0-100.0); Nucleated Red Blood Cells % 0.1 %; Red Blood Cells 4.23 10^6/uL (4.5-5.90); Red Cell Distribution Width 14.7 % (11.8-14.3)
[2023-03-07] MEDS ORDERED: FUROSEMIDE 40 MG/4 ML VIAL IV ONE ×2 (07:15→11:18)
[2023-03-07] MEDS ORDERED: levoFLOXacin 500MG 100 ML IV ONE (07:15)
[2023-03-07] MEDS ORDERED: VANCOMYCIN 1GM/250ML 250 ML IV ONE (07:15)
[2023-03-07 10:30] VITALS: PULSE 73; RESP 17; O2SAT 91
[2023-03-07] MEDS ORDERED: VANCOMYCIN PER PHARMACY 0 MG IV SCH (10:30)
[2023-03-07] MEDS ORDERED: AMPICILLIN & SULBACTAM SODIUM 3 GM in SODIUM CHL 0.9% 100 ML IV SCH (10:30)
[2023-03-07] MEDS ORDERED: NITROGLYCERIN 0.4 MG SL TAB SL PRN (10:30)
[2023-03-07] MEDS ORDERED: MORPHINE SULFATE INJ 2 MG/ml SYRG IV PRN (10:30)
[2023-03-07] MEDS ORDERED: DOXYCYCLINE 100MG/250ML 250 ML IV ONE (11:15)
[2023-03-07 12:13] LABS: % Iron Saturation 30.7 % (20-55)
[2023-03-07 12:23] LABS: INR 1.01 (0.9-1.15); Prothrombin Time 10.6 sec (9.3-11.8)
[2023-03-07 12:45] LABS: Urine Bacteria NONE SEEN /hpf (None Seen); Urine Blood Negative /uL (Negative); Urine Clarity Clear (Clear); Urine Color Colorless (Yellow); Urine Protein, UAD Negative (Negative); Urine Specific Gravity 1.014 (1.001-1.035); Urine Urobilinogen Normal (Negative); Urine WBC <1 /hpf (0 - 3); Urine pH 5.5 (5.0-8.0)
[2023-03-07 12:58] LABS: Amphetamine Screen, Urine Neg (NEGATIVE)
[2023-03-07 13:00] LABS: Barbiturate Scree,Urine Neg (NEGATIVE); Benzodiazephine Screen, Urine Neg (NEGATIVE); Cannabinoid Screen, Urine Neg (NEGATIVE); Cocaine Screen, Urine Neg (NEGATIVE); Opiate Scree,Urine Neg (NEGATIVE); Phencyclidine Screen, Urine Neg (NEGATIVE)
[2023-03-07] MEDS ORDERED: ONDANSETRON HCL 4 MG/2 ML VIAL IV PRN (17:00)
[2023-03-07] MEDS ORDERED: HYDROcodone-ACET 5/325MG TAB PO PRN (17:00)
[2023-03-07] MEDS ORDERED: ACETAMINOPHEN 325 MG TAB PO PRN (17:00)
[2023-03-07] MEDS ORDERED: hydrALAZINE HCL 20 MG/ML VL IV PRN (19:45)
[2023-03-07 23:21] VITALS: BP_SYST 120; BP_SYST 123; BP_DIAS 49; BP_DIAS 87; PULSE 74; PULSE 82; RESP 17; RESP 18; RESP 20; TEMP 97.3; TEMP 97.8; O2SAT 91; O2SAT 95
[2023-03-08] VITALS (7 sets, daily range): BP systolic 109–134; BP diastolic 46–72; PULSE 16–78; RESP 14–18; TEMP 97.5–98.5; O2SAT 94–98
[2023-03-08] MEDS: VANCOMYCIN 1GM/250ML 250 ML IV SCH ×2 (03:58→19:58)
[2023-03-08] MEDS: DOXYCYCLINE 100MG/250ML 250 ML IV SCH ×2 (05:05→16:46)
[2023-03-08] MEDS: FUROSEMIDE 40 MG/4 ML VIAL IV SCH ×2 (05:06→16:55)
[2023-03-08 07:43] LABS: Alanine Aminotransferase 11 U/L (7-40); Albumin 4.3 g/dL (3.2-4.8); Alkaline Phosphatase 57 U/L (46-116); Anion Gap 5 (5-15); Aspartate Aminotransferase 15 U/L (13-40); Blood Urea Nitrogen 14 mg/dL (9-23); Carbon Dioxide 31 mmol/L (20-30); Chloride 104 mmol/L (98-107); Glucose 136 mg/dL (74-106); Magnesium 1.9 mg/dL (1.6-2.6); Potassium 3.7 mmol/L (3.5-5.1); Sodium 140 mmol/L (136-145)
[2023-03-08 07:44] LABS: Total Protein 7.2 g/dL (5.7-8.2)
[2023-03-08 07:46] LABS: Basophils # (auto) 0 10 ^3/uL (0-0.2); Basophils % (auto) 0.4 % (0.0-2.0); Eosinophils # (auto) 0.1 10 ^3/uL (0-0.8); Eosinophils % (auto) 2.1 % (0.0-7.0); Hematocrit 42.4 % (41.0-53.0); Hemoglobin 14.1 g/dL (13.5-17.5); Lymphocytes # (auto) 1.1 10 ^3/uL (0.4-5.4); Lymphocytes % (auto) 23.1 % (10.0-50.0); Mean Corpuscular Hgb Conc. 33.4 g/dL (32.0-36.0); Monocytes # (auto) 0.3 10 ^3/uL (0-1.3); Monocytes % (auto) 6.6 % (0.0-12.0); Neutrophils # (auto) 3.4 10 ^3/uL (1.6-8.6); Neutrophils % (auto) 67.8 % (37.0-80.0); Nucleated Red Blood Cells % 0.1 %; Red Blood Cells 4.56 10^6/uL (4.5-5.90)
[2023-03-08 08:04] LABS: LDL Cholesterol 66 mg/dL (< 100); Triglycerides 135 mg/dL (< 150)
[2023-03-08 08:05] LABS: HDL Cholesterol 52 mg/dL (40-59)
[2023-03-08 08:06] LABS: Cholesterol 132 mg/dL (< 200)
[2023-03-08 08:14] LABS: CRP High Sensitivity 1.86 mg/dL (<1.0)
[2023-03-08] MEDS: ENOXAPARIN SOD 40 MG/0.4 ML SYRINGE SC SCH (08:30)
[2023-03-08] MEDS: METOPROLOL SUCCINATE XL 50 MG TAB PO SCH (08:31)
[2023-03-08 09:52] LABS: Erythrocyte Sedimentation Rate 16 mm/hr (0-20)
[2023-03-08] MEDS: ATORVASTATIN 20 MG TAB PO SCH (21:50)
[2023-03-09] VITALS (7 sets, daily range): BP systolic 110–134; BP diastolic 53–64; PULSE 65–75; RESP 14–20; TEMP 98.4–98.8; O2SAT 95–99
[2023-03-09] MEDS: DOXYCYCLINE 100MG/250ML 250 ML IV SCH ×2 (03:57→16:31)
[2023-03-09] MEDS: FUROSEMIDE 40 MG/4 ML VIAL IV SCH ×2 (06:00→16:31)
[2023-03-09] MEDS: ENOXAPARIN SOD 40 MG/0.4 ML SYRINGE SC SCH (08:35)
[2023-03-09] MEDS: METOPROLOL SUCCINATE XL 50 MG TAB PO SCH (08:40)
[2023-03-09] MEDS: VANCOMYCIN 1GM/250ML 250 ML IV SCH (12:00)
[2023-03-09] MEDS: ATORVASTATIN 20 MG TAB PO SCH (21:55)
[2023-03-10] MEDS: VANCOMYCIN 1GM/250ML 250 ML IV SCH (03:40)
[2023-03-10] MEDS: DOXYCYCLINE 100MG/250ML 250 ML IV SCH (04:40)
[2023-03-10 05:00] VITALS: BP 132/67; PULSE 72; RESP 20; TEMP 98.7; O2SAT 96
[2023-03-10] MEDS: ENOXAPARIN SOD 40 MG/0.4 ML SYRINGE SC SCH (08:51)
[2023-03-10] MEDS: FUROSEMIDE 40 MG/4 ML VIAL IV SCH (08:53)
[2023-03-10] MEDS: METOPROLOL SUCCINATE XL 50 MG TAB PO SCH (08:53)
[2023-03-10 09:00] VITALS: BP 157/88; PULSE 97; RESP 16; TEMP 98.3; O2SAT 96
[2023-03-10] MEDS ORDERED: Juven Fruit Punch Powder PACKET 28.8gm PO SCH (10:00)
[2023-03-10] MEDS ORDERED: CYANOCOBALAMIN (B-12) 1000 MCG/1 ML VIAL IM ONE (12:45)
[2023-03-10 13:04] VITALS: BP 113/97; PULSE 98; RESP 16; TEMP 97.6; O2SAT 98
[2023-03-10] MEDS ORDERED: FLUCONAZOLE 100 MG TAB PO ONE (13:45)
[2023-03-10] MEDS ORDERED: CEPH250C PO (13:46)
[2023-03-10 14:43] VITALS: BP 113/97; PULSE 98; RESP 16; TEMP 97.6; O2SAT 98
[2023-03-10 14:45] LABS: Folate (Folic Acid) 16.02 ng/mL (>5.38)
[2023-03-10] MEDS ORDERED: NYSTATIN TOPICAL POWDER 15GM TOP SCH (22:00)
== END 2023-03-10 15:20 | disposition home or self-care (01) | DRG 602 ==
LOC: EDBD 02:35 → ER 02:38 → OVERFLOW 10:54 → WEST WING 21:10
PROVIDERS: ADMIT Internal Medicine; ATTEND Student in an Organized Health Care Education/Training Program
DX: L03.116 Cellulitis of left lower limb (principal); I50.23 Acute on chronic systolic (congestive) heart failure; Z59.00 Homelessness unspecified; I11.0 Hypertensive heart disease with heart failure; D64.9 Anemia, unspecified; F03.90 Unspecified dementia, unspecified severity, without behavioral disturbance, psychotic disturbance, mood disturbance, and anxiety; E80.6 Other disorders of bilirubin metabolism; E66.9 Obesity, unspecified; K57.90 Diverticulosis of intestine, part unspecified, without perforation or abscess without bleeding; E78.5 Hyperlipidemia, unspecified; Z79.899 Other long term (current) drug therapy; Z90.49 Acquired absence of other specified parts of digestive tract; Z68.29 Body mass index [BMI] 29.0-29.9, adult
CPT/HCPCS: 36415; 71045; 80053; 80061; 80307; 81001; 82270; 82306; 82607; 82746; 83036; 83540; 83550; 83605; 83735; 83880; 84443; 84484; 85025; 85379; 85610; 85652; 86141; 87040; 87077; 87081; 87186; 87205; 93306; 93925; 93970; 96365; 96366; 99291; G0378; J3490

== ENCOUNTER 2023-03-19 11:53 | Inpatient (IN) | payer MEDICARE ==
[~2023-03-19] VITALS: Ht 165.1 cm; Wt 85.5 kg
[~2023-03-19 11:53] MED LIST changes: +CEPH250C PO
[2023-03-19] MEDS ORDERED: TETANUS-DIPTH-ACEL PERTUSSIS 0.5ML SYR Tdap IM ONE (14:00)
[2023-03-19 14:28] LABS: Basophils # (auto) 0 10 ^3/uL (0-0.2); Basophils % (auto) 0.5 % (0.0-2.0); Eosinophils # (auto) 0.1 10 ^3/uL (0-0.8); Eosinophils % (auto) 1.4 % (0.0-7.0); Hematocrit 44.7 % (41.0-53.0); Hemoglobin 14.9 g/dL (13.5-17.5); Lymphocytes # (auto) 1.3 10 ^3/uL (0.4-5.4); Lymphocytes % (auto) 21.3 % (10.0-50.0); Mean Corpuscular Hemoglobin 31.4 pg (28.0-32.0); Mean Corpuscular Hgb Conc. 33.4 g/dL (32.0-36.0); Mean Corpuscular Volume 93.8 fL (80.0-100.0); Monocytes # (auto) 0.4 10 ^3/uL (0-1.3); Monocytes % (auto) 6.6 % (0.0-12.0); Neutrophils # (auto) 4.4 10 ^3/uL (1.6-8.6); Neutrophils % (auto) 70.2 % (37.0-80.0); Nucleated Red Blood Cells % 0.1 %; Red Blood Cells 4.76 10^6/uL (4.5-5.90); White Blood Cell 6.3 10^3/uL (4.4-10.8)
[2023-03-19 14:43] LABS: INR 1.03 (0.9-1.15); Prothrombin Time 10.8 sec (9.3-11.8)
[2023-03-19 14:45] LABS: Alanine Aminotransferase 24 U/L (7-40); Albumin 4.4 g/dL (3.2-4.8); Alkaline Phosphatase 64 U/L (46-116); Anion Gap 8 (5-15); Aspartate Aminotransferase 17 U/L (13-40); BUN/Creatinine Ratio 24.7 (10.0-20.0); Blood Urea Nitrogen 20 mg/dL (9-23); Calcium 9.1 mg/dL (8.7-10.4); Carbon Dioxide 23 mmol/L (20-30); Chloride 110 mmol/L (98-107); Glucose 119 mg/dL (74-106); Lipase 55 U/L (12-53); Magnesium 2.1 mg/dL (1.6-2.6); Potassium 4.2 mmol/L (3.5-5.1); Sodium 141 mmol/L (136-145)
[2023-03-19 14:46] LABS: Bilirubin, Total 1.6 mg/dL (0.2-1.0); Total Protein 7.3 g/dL (5.7-8.2)
[2023-03-19 15:03] LABS: Acetaminophen < 2.0 UG/ML (10.0-20.0)
[2023-03-19 15:11] LABS: Salicylate < 3.0 mg/dL (2.8-20.0)
[2023-03-19] MEDS ORDERED: FUROSEMIDE 40 MG/4 ML VIAL IV ONE (16:30)
[2023-03-19 21:12] VITALS: PULSE 86; RESP 18; O2SAT 94
[2023-03-20] VITALS (7 sets, daily range): BP systolic 111–155; BP diastolic 47–77; PULSE 62–80; RESP 12–18; TEMP 98–98.1; O2SAT 95–98
[2023-03-20 03:14] LABS: Urine Bacteria NONE SEEN /hpf (None Seen); Urine Blood Negative /uL (Negative); Urine Clarity Clear (Clear); Urine Color Colorless (Yellow); Urine Protein, UAD Negative (Negative); Urine Specific Gravity 1.008 (1.001-1.035); Urine Urobilinogen Normal (Negative); Urine WBC <1 /hpf (0 - 3)
[2023-03-20 04:30] LABS: Amphetamine Screen, Urine Neg (NEGATIVE); Barbiturate Scree,Urine Neg (NEGATIVE); Benzodiazephine Screen, Urine Neg (NEGATIVE); Cocaine Screen, Urine Neg (NEGATIVE); Opiate Scree,Urine Neg (NEGATIVE)
[2023-03-20 04:31] LABS: Cannabinoid Screen, Urine Neg (NEGATIVE); Phencyclidine Screen, Urine Neg (NEGATIVE)
[2023-03-20 06:10] LABS: Chloride 108 mmol/L (98-107); Sodium 143 mmol/L (136-145)
[2023-03-20 06:11] LABS: Anion Gap 8 (5-15); Carbon Dioxide 27 mmol/L (20-30)
[2023-03-20 06:12] LABS: Calcium 9.2 mg/dL (8.7-10.4)
[2023-03-20 06:17] LABS: BUN/Creatinine Ratio 16.4 (10.0-20.0); Blood Urea Nitrogen 18 mg/dL (9-23); Glucose 102 mg/dL (74-106)
[2023-03-20 06:21] LABS: Folate (Folic Acid) 12.77 ng/mL (>5.38)
[2023-03-20 06:29] LABS: Basophils # (auto) 0 10 ^3/uL (0-0.2); Basophils % (auto) 0.4 % (0.0-2.0); Eosinophils # (auto) 0.1 10 ^3/uL (0-0.8); Eosinophils % (auto) 2.4 % (0.0-7.0); Hematocrit 40.7 % (41.0-53.0); Lymphocytes # (auto) 1.5 10 ^3/uL (0.4-5.4); Lymphocytes % (auto) 25.5 % (10.0-50.0); Mean Corpuscular Hemoglobin 31.5 pg (28.0-32.0); Mean Corpuscular Hgb Conc. 34.4 g/dL (32.0-36.0); Mean Corpuscular Volume 91.7 fL (80.0-100.0); Monocytes # (auto) 0.4 10 ^3/uL (0-1.3); Monocytes % (auto) 6.3 % (0.0-12.0); Neutrophils # (auto) 3.9 10 ^3/uL (1.6-8.6); Neutrophils % (auto) 65.4 % (37.0-80.0); Nucleated Red Blood Cells % 0.1 %; Red Blood Cells 4.44 10^6/uL (4.5-5.90); Red Cell Distribution Width 14.4 % (11.8-14.3)
[2023-03-20] MEDS ORDERED: LORazepam 2MG/ML-1ML VIAL IV PRN (09:45)
[2023-03-20] MEDS ORDERED: CYANOCOBALAMIN (B-12) 1000 MCG/1 ML VIAL IM ONE (09:45)
[2023-03-20] MEDS ORDERED: cefTRIAXone 1GM/50ML D5W 50 ML IV ONE (12:45)
[2023-03-21 05:00] VITALS: BP 114/67; PULSE 67; RESP 18; TEMP 97.9; O2SAT 97
[2023-03-21 07:11] LABS: Basophils # (auto) 0 10 ^3/uL (0-0.2); Basophils % (auto) 0.4 % (0.0-2.0); Eosinophils # (auto) 0.1 10 ^3/uL (0-0.8); Eosinophils % (auto) 2.1 % (0.0-7.0); Hematocrit 39.6 % (41.0-53.0); Hemoglobin 13.3 g/dL (13.5-17.5); Lymphocytes # (auto) 1.4 10 ^3/uL (0.4-5.4); Lymphocytes % (auto) 29.2 % (10.0-50.0); Mean Corpuscular Hemoglobin 31.3 pg (28.0-32.0); Mean Corpuscular Hgb Conc. 33.5 g/dL (32.0-36.0); Mean Corpuscular Volume 93.3 fL (80.0-100.0); Monocytes # (auto) 0.3 10 ^3/uL (0-1.3); Neutrophils # (auto) 3.1 10 ^3/uL (1.6-8.6); Neutrophils % (auto) 62.3 % (37.0-80.0); Nucleated Red Blood Cells % 0.1 %; Red Blood Cells 4.24 10^6/uL (4.5-5.90); Red Cell Distribution Width 14.4 % (11.8-14.3); White Blood Cell 4.9 10^3/uL (4.4-10.8)
[2023-03-21 07:30] LABS: Chloride 108 mmol/L (98-107); Potassium 4.2 mmol/L (3.5-5.1); Sodium 140 mmol/L (136-145)
[2023-03-21 07:31] LABS: Anion Gap 7 (5-15); Carbon Dioxide 25 mmol/L (20-30)
[2023-03-21 07:32] LABS: Calcium 8.9 mg/dL (8.5-10.1)
[2023-03-21 07:36] LABS: BUN/Creatinine Ratio 14.6 (10.0-20.0); Blood Urea Nitrogen 13 mg/dL (9-23); Glucose 112 mg/dL (74-106)
[2023-03-21 08:00] VITALS: BP 105/58; PULSE 61; PULSE 65; RESP 16; TEMP 97.9; O2SAT 98
[2023-03-21 08:06] LABS: Homocyst(e)ine 13.6 umol/L (0.0-19.2)
[2023-03-21] MEDS: CYANOCOBALAMIN 500 MCG TAB PO SCH (08:54)
[2023-03-21] MEDS: cefTRIAXone 1GM/50ML D5W 50 ML IV SCH (08:55)
[2023-03-21 12:00] VITALS: BP 110/68; PULSE 61; RESP 18; TEMP 98.1; O2SAT 95
[2023-03-21 16:00] VITALS: BP 106/57; PULSE 70; RESP 18; TEMP 97.6; O2SAT 98
[2023-03-21 20:00] VITALS: BP 135/83; PULSE 61; PULSE 66; RESP 20; TEMP 97.8; O2SAT 93
[2023-03-21 22:00] VITALS: BP_SYST 117; BP_SYST 132; BP_SYST 136; BP_DIAS 52; BP_DIAS 53; BP_DIAS 56; PULSE 61; RESP 20; TEMP 97.9; O2SAT 93
[2023-03-22 05:00] VITALS: BP_SYST 116; BP_SYST 129; BP_SYST 140; BP_DIAS 64; BP_DIAS 69; PULSE 77; RESP 20; TEMP 97.8; O2SAT 95
[2023-03-22 07:00] VITALS: BP 136/70; PULSE 64; RESP 18; TEMP 97.6
[2023-03-22 08:00] VITALS: BP 136/70; PULSE 63; PULSE 64; RESP 18; TEMP 97.6; O2SAT 98
[2023-03-22] MEDS: cefTRIAXone 1GM/50ML D5W 50 ML IV SCH (08:31)
[2023-03-22] MEDS ORDERED: ENOXAPARIN SOD 40 MG/0.4 ML SYRINGE SC SCH (10:00)
[2023-03-22] MEDS: CYANOCOBALAMIN 500 MCG TAB PO SCH (12:17)
[2023-03-24 08:07] LABS: Albumin 3.3 g/dL (2.9-4.4); Alpha-1-Globulin 0.2 g/dL (0.0-0.4); Alpha-2-Globulin 0.7 g/dL (0.4-1.0); Gamma Globulin 1.1 g/dL (0.4-1.8); Globulin Total 3.1 g/dL (2.2-3.9); Protein Total Serum 6.4 g/dL (6.0-8.5)
== END 2023-03-22 13:30 | disposition left against medical advice (07) | DRG 604 ==
LOC: ER 11:53 → TELE 16:32 → TELE-CENTR 03-20 14:04
PROVIDERS: ADMIT Internal Medicine Geriatric Medicine; ATTEND Student in an Organized Health Care Education/Training Program
DX: S00.83XA Contusion of other part of head, initial encounter (principal); I50.23 Acute on chronic systolic (congestive) heart failure; G45.0 Vertebro-basilar artery syndrome; L03.116 Cellulitis of left lower limb; Z59.00 Homelessness unspecified; G91.2 (Idiopathic) normal pressure hydrocephalus; I11.0 Hypertensive heart disease with heart failure; F03.90 Unspecified dementia, unspecified severity, without behavioral disturbance, psychotic disturbance, mood disturbance, and anxiety; I08.1 Rheumatic disorders of both mitral and tricuspid valves; R26.9 Unspecified abnormalities of gait and mobility; G62.9 Polyneuropathy, unspecified; Y93.89 Activity, other specified; Z53.29 Procedure and treatment not carried out because of patient's decision for other reasons; G93.89 Other specified disorders of brain; R29.6 Repeated falls; Z90.49 Acquired absence of other specified parts of digestive tract; Z81.8 Family history of other mental and behavioral disorders; Z83.3 Family history of diabetes mellitus; W07.XXXA Fall from chair, initial encounter; Y92.89 Other specified places as the place of occurrence of the external cause; Y99.8 Other external cause status
CPT/HCPCS: 36415; 70450; 70551; 71045; 80048; 80053; 80307; 80320; 80329; 81001; 82607; 82746; 83090; 83690; 83735; 83880; 84155; 84165; 84443; 84484; 85025; 85610; 87081; 90471; 90715; 93886; 95819; 96374; 97110; 97116; 97163; 97530; G0378; J0696

== ENCOUNTER 2023-03-27 00:43 | Emergency (ER) | payer MEDICARE ==
[~2023-03-27] VITALS: Ht 165.1 cm; Wt 77.1 kg
[2023-03-27 00:51] VITALS: BP 140/80; PULSE 78; RESP 16; O2SAT 98
== END 2023-03-27 06:45 | disposition left against medical advice (07) ==
LOC: EDBD 00:43 → ER 00:43
DX: M25.552 Pain in left hip (principal); M25.551 Pain in right hip; M25.562 Pain in left knee; M25.561 Pain in right knee; Z53.21 Procedure and treatment not carried out due to patient leaving prior to being seen by health care provider

== ENCOUNTER 2023-04-04 23:10 | Emergency (ER) | payer MEDICARE ==
[~2023-04-04] VITALS: Ht 162.6 cm; Wt 80.0 kg
[2023-04-05] VITALS: PULSE 64; RESP 16; O2SAT 98
[2023-04-05 00:04] LABS: Basophils # (auto) 0 10 ^3/uL (0-0.2); Basophils % (auto) 0.4 % (0.0-2.0); Eosinophils # (auto) 0.1 10 ^3/uL (0-0.8); Eosinophils % (auto) 2.7 % (0.0-7.0); Hematocrit 37.8 % (41.0-53.0); Hemoglobin 12.6 g/dL (13.5-17.5); Lymphocytes # (auto) 1.4 10 ^3/uL (0.4-5.4); Lymphocytes % (auto) 26.3 % (10.0-50.0); Mean Corpuscular Hemoglobin 31.2 pg (28.0-32.0); Mean Corpuscular Hgb Conc. 33.4 g/dL (32.0-36.0); Mean Corpuscular Volume 93.3 fL (80.0-100.0); Monocytes # (auto) 0.4 10 ^3/uL (0-1.3); Monocytes % (auto) 7.9 % (0.0-12.0); Neutrophils # (auto) 3.4 10 ^3/uL (1.6-8.6); Neutrophils % (auto) 62.7 % (37.0-80.0); Nucleated Red Blood Cells % 0.1 %; Red Blood Cells 4.06 10^6/uL (4.5-5.90); Red Cell Distribution Width 15.2 % (11.8-14.3); White Blood Cell 5.4 10^3/uL (4.4-10.8)
[2023-04-05 00:17] LABS: INR 0.98 (0.9-1.15); Partial Thromboplastin Time 28.3 SEC (24.5-34.5); Prothrombin Time 10.3 sec (9.3-11.8)
[2023-04-05 00:22] LABS: Alanine Aminotransferase 15 U/L (7-40); Albumin 3.9 g/dL (3.2-4.8); Alkaline Phosphatase 58 U/L (46-116); Anion Gap 6 (5-15); Aspartate Aminotransferase 14 U/L (13-40); BUN/Creatinine Ratio 11.2 (10.0-20.0); Blood Urea Nitrogen 11 mg/dL (9-23); Carbon Dioxide 27 mmol/L (20-30); Chloride 111 mmol/L (98-107); Glucose 114 mg/dL (74-106); Potassium 3.9 mmol/L (3.5-5.1); Sodium 144 mmol/L (136-145)
[2023-04-05 00:23] LABS: Bilirubin, Total 0.9 mg/dL (0.2-1.0); Total Protein 6.4 g/dL (5.7-8.2)
[2023-04-05] MEDS ORDERED: FUROSEMIDE 40 MG/4 ML VIAL IV ONE (01:00)
[2023-04-05] MEDS ORDERED: FURO1TAB31 PO (03:29)
[2023-04-05] MEDS ORDERED: POTA1TAB4 PO (03:29)
[2023-04-05 06:00] VITALS: BP 148/68; PULSE 70; RESP 14; O2SAT 97
[2023-04-05 06:30] LABS: Urine Bacteria NONE SEEN /hpf (None Seen); Urine Blood Negative /uL (Negative); Urine Clarity Clear (Clear); Urine Color Colorless (Yellow); Urine Protein, UAD Negative (Negative); Urine Specific Gravity 1.006 (1.001-1.035); Urine Urobilinogen Normal (Negative); Urine WBC <1 /hpf (0 - 3)
== END 2023-04-06 17:37 | disposition home or self-care (01) ==
LOC: EDBD 23:10 → ER 23:10
DX: R60.0 Localized edema (principal); I87.2 Venous insufficiency (chronic) (peripheral); G91.2 (Idiopathic) normal pressure hydrocephalus; I11.0 Hypertensive heart disease with heart failure; I50.9 Heart failure, unspecified; F03.90 Unspecified dementia, unspecified severity, without behavioral disturbance, psychotic disturbance, mood disturbance, and anxiety; M19.90 Unspecified osteoarthritis, unspecified site; D64.9 Anemia, unspecified; R73.03 Prediabetes; Z59.00 Homelessness unspecified; Z98.890 Other specified postprocedural states; Z88.0 Allergy status to penicillin; Z79.899 Other long term (current) drug therapy
CPT/HCPCS: 36415; 71045; 80053; 81001; 83735; 83880; 84484; 85025; 85610; 85730; 93005; J1940

== ENCOUNTER 2023-04-06 05:12 | Inpatient (IN) | payer MEDICARE ==
[~2023-04-06] VITALS: Ht 165.1 cm; Wt 79.0 kg
[~2023-04-06 05:12] MED LIST changes: -CEPH250C PO; +FURO1TAB31 PO; -FURO1TAB33 PO; -FURO40TA4 PO; -LEVO500T31 PO; -LEVO500T91 PO; -METR-344 PO; -METR500T PO; -POTA-220 PO; +POTA1TAB4 PO
[2023-04-06 06:49] LABS: Basophils # (auto) 0 10 ^3/uL (0-0.2); Basophils % (auto) 0.6 % (0.0-2.0); Eosinophils # (auto) 0.1 10 ^3/uL (0-0.8); Eosinophils % (auto) 2.5 % (0.0-7.0); Hematocrit 39.7 % (41.0-53.0); Hemoglobin 13.4 g/dL (13.5-17.5); Lymphocytes # (auto) 1.3 10 ^3/uL (0.4-5.4); Lymphocytes % (auto) 23.5 % (10.0-50.0); Mean Corpuscular Hemoglobin 31.3 pg (28.0-32.0); Mean Corpuscular Hgb Conc. 33.6 g/dL (32.0-36.0); Monocytes # (auto) 0.5 10 ^3/uL (0-1.3); Monocytes % (auto) 8.3 % (0.0-12.0); Neutrophils # (auto) 3.6 10 ^3/uL (1.6-8.6); Neutrophils % (auto) 65.1 % (37.0-80.0); Nucleated Red Blood Cells % 0.1 %; Red Blood Cells 4.27 10^6/uL (4.5-5.90); Red Cell Distribution Width 14.9 % (11.8-14.3); White Blood Cell 5.5 10^3/uL (4.4-10.8)
[2023-04-06 06:52] LABS: Alanine Aminotransferase 15 U/L (7-40); Alkaline Phosphatase 55 U/L (46-116); Anion Gap 5 (5-15); Aspartate Aminotransferase 15 U/L (13-40); BUN/Creatinine Ratio 13.2 (10.0-20.0); Bilirubin, Total 1.1 mg/dL (0.2-1.0); Blood Urea Nitrogen 12 mg/dL (9-23); Calcium 8.9 mg/dL (8.5-10.1); Carbon Dioxide 28 mmol/L (20-30); Chloride 110 mmol/L (98-107); Glucose 117 mg/dL (74-106); Potassium 4.1 mmol/L (3.5-5.1); Sodium 143 mmol/L (136-145); Total Protein 6.6 g/dL (5.7-8.2)
[2023-04-06 07:34] LABS: Lipase 51 U/L (12-53)
[2023-04-06] MEDS ORDERED: metroNIDAZOLE 500MG/100ML 100 ML IV ONE (11:30)
[2023-04-06] MEDS ORDERED: PIPERACILLIN-TAZOB 3.375GM 100 ML IV ONE (11:30)
[2023-04-06 13:30] VITALS: PULSE 58; RESP 16; O2SAT 96
[2023-04-06] MEDS ORDERED: ACETAMINOPHEN 325 MG TAB PO PRN (13:30)
[2023-04-06] MEDS ORDERED: hydrALAZINE HCL 20 MG/ML VL IV PRN (13:30)
[2023-04-06] MEDS ORDERED: ONDANSETRON HCL 4 MG/2 ML VIAL IV PRN (13:30)
[2023-04-06] MEDS ORDERED: IBUPROFEN 600 MG TAB PO PRN (13:45)
[2023-04-06] MEDS ORDERED: ACETAMINOPHEN/CODEINE#3 (300/30mg) TAB PO PRN (13:45)
[2023-04-06] MEDS ORDERED: metroNIDAZOLE 500MG/100ML 100 ML IV SCH ×2 (14:00)
[2023-04-06] MEDS: cefTRIAXone 1GM/50ML D5W 50 ML IV SCH (17:01)
[2023-04-06] MEDS: FUROSEMIDE 40 MG TAB PO SCH (19:13)
[2023-04-06 19:40] VITALS: O2SAT 96
[2023-04-06] MEDS ORDERED: PIPERACILLIN-TAZOB 3.375GM 100 ML IV SCH (22:00)
[2023-04-06 22:28] VITALS: BP 137/69; PULSE 72; RESP 20; TEMP 98.7; O2SAT 97
[2023-04-06] MEDS: metroNIDAZOLE 500MG/100ML 100 ML IV SCH (23:09)
[2023-04-07] VITALS (8 sets, daily range): BP systolic 119–140; BP diastolic 53–69; PULSE 66–80; RESP 16–20; TEMP 97.3–98.7; O2SAT 92–98
[2023-04-07] MEDS: FUROSEMIDE 40 MG TAB PO SCH ×2 (06:00→11:46)
[2023-04-07] MEDS: metroNIDAZOLE 500MG/100ML 100 ML IV SCH ×3 (06:21→21:22)
[2023-04-07] MEDS: cefTRIAXone 1GM/50ML D5W 50 ML IV SCH (09:42)
[2023-04-07] MEDS ORDERED: POTASSIUM CHL 20 Meq TABLET PO SCH (10:00)
[2023-04-07] MEDS ORDERED: POTASSIUM CHL 20 Meq TABLET PO ONE (11:00)
[2023-04-07 12:17] LABS: Basophils # (auto) 0 10 ^3/uL (0-0.2); Basophils % (auto) 0.5 % (0.0-2.0); Eosinophils # (auto) 0.1 10 ^3/uL (0-0.8); Hematocrit 37.7 % (41.0-53.0); Hemoglobin 12.9 g/dL (13.5-17.5); Lymphocytes % (auto) 20.2 % (10.0-50.0); Mean Corpuscular Hemoglobin 31.1 pg (28.0-32.0); Mean Corpuscular Hgb Conc. 34.2 g/dL (32.0-36.0); Mean Corpuscular Volume 91.1 fL (80.0-100.0); Monocytes # (auto) 0.3 10 ^3/uL (0-1.3); Monocytes % (auto) 6.5 % (0.0-12.0); Neutrophils # (auto) 3.5 10 ^3/uL (1.6-8.6); Neutrophils % (auto) 70.8 % (37.0-80.0); Nucleated Red Blood Cells % 0.1 %; Red Blood Cells 4.14 10^6/uL (4.5-5.90); Red Cell Distribution Width 14.6 % (11.8-14.3); White Blood Cell 4.9 10^3/uL (4.4-10.8)
[2023-04-07 12:23] LABS: Urine Bacteria NONE SEEN /hpf (None Seen); Urine Blood Negative /uL (Negative); Urine Clarity Clear (Clear); Urine Protein, UAD Negative (Negative); Urine Specific Gravity 1.007 (1.001-1.035); Urine Urobilinogen Normal (Negative); Urine WBC <1 /hpf (0 - 3)
[2023-04-07 12:26] LABS: Urine Color Straw (Yellow)
[2023-04-07 12:36] LABS: Alanine Aminotransferase 17 U/L (7-40); Albumin 3.9 g/dL (3.2-4.8); Alkaline Phosphatase 55 U/L (46-116); Anion Gap 6 (5-15); Aspartate Aminotransferase 14 U/L (13-40); BUN/Creatinine Ratio 9.9 (10.0-20.0); Bilirubin, Total 1.7 mg/dL (0.2-1.0); Blood Urea Nitrogen 8 mg/dL (9-23); Calcium 8.8 mg/dL (8.5-10.1); Carbon Dioxide 27 mmol/L (20-30); Chloride 107 mmol/L (98-107); Glucose 103 mg/dL (74-106); Potassium 4.2 mmol/L (3.5-5.1); Sodium 140 mmol/L (136-145); Total Protein 6.3 g/dL (5.7-8.2)
[2023-04-08 04:18] LABS: Basophils # (auto) 0 10 ^3/uL (0-0.2); Basophils % (auto) 0.5 % (0.0-2.0); Eosinophils # (auto) 0.1 10 ^3/uL (0-0.8); Eosinophils % (auto) 1.7 % (0.0-7.0); Hemoglobin 13.1 g/dL (13.5-17.5); Lymphocytes # (auto) 1.1 10 ^3/uL (0.4-5.4); Lymphocytes % (auto) 21.2 % (10.0-50.0); Mean Corpuscular Hemoglobin 31.7 pg (28.0-32.0); Mean Corpuscular Hgb Conc. 34.4 g/dL (32.0-36.0); Monocytes # (auto) 0.3 10 ^3/uL (0-1.3); Monocytes % (auto) 5.9 % (0.0-12.0); Neutrophils # (auto) 3.8 10 ^3/uL (1.6-8.6); Neutrophils % (auto) 70.7 % (37.0-80.0); Red Blood Cells 4.12 10^6/uL (4.5-5.90); Red Cell Distribution Width 14.8 % (11.8-14.3); White Blood Cell 5.3 10^3/uL (4.4-10.8)
[2023-04-08 04:26] LABS: INR 1.04 (0.9-1.15); Partial Thromboplastin Time 30.8 SEC (24.5-34.5); Prothrombin Time 10.9 sec (9.3-11.8)
[2023-04-08 04:28] LABS: Anion Gap 7 (5-15); Calcium 8.7 mg/dL (8.7-10.4); Carbon Dioxide 26 mmol/L (20-30); Chloride 108 mmol/L (98-107); Potassium 3.9 mmol/L (3.5-5.1); Sodium 141 mmol/L (136-145)
[2023-04-08 04:34] LABS: BUN/Creatinine Ratio 6.3 (10.0-20.0); Blood Urea Nitrogen 6 mg/dL (9-23); Glucose 99 mg/dL (74-106)
[2023-04-08 05:13] VITALS: BP 110/59; PULSE 78; RESP 16; TEMP 99; O2SAT 94
[2023-04-08] MEDS: metroNIDAZOLE 500MG/100ML 100 ML IV SCH ×3 (06:23→21:26)
[2023-04-08] MEDS: FUROSEMIDE 40 MG TAB PO SCH (06:24)
[2023-04-08 08:00] VITALS: PULSE 68; RESP 16; O2SAT 94
[2023-04-08 09:00] VITALS: BP 100/58; PULSE 71; RESP 18; TEMP 98.4; O2SAT 93
[2023-04-08] MEDS: cefTRIAXone 1GM/50ML D5W 50 ML IV SCH (09:55)
[2023-04-08] MEDS: POTASSIUM CHL 20 Meq TABLET PO SCH (09:56)
[2023-04-08 13:00] VITALS: BP 111/64; PULSE 108; RESP 18; TEMP 97.9; O2SAT 95
[2023-04-08 20:00] VITALS: PULSE 108; RESP 18; O2SAT 95
[2023-04-09] VITALS (8 sets, daily range): BP systolic 91–125; BP diastolic 47–72; PULSE 70–84; RESP 17–20; TEMP 36.9; O2SAT 93–97
[2023-04-09] MEDS: metroNIDAZOLE 500MG/100ML 100 ML IV SCH ×3 (05:11→22:00)
[2023-04-09] MEDS: FUROSEMIDE 40 MG TAB PO SCH (05:38)
[2023-04-09] MEDS: POTASSIUM CHL 20 Meq TABLET PO SCH (08:40)
[2023-04-09] MEDS: cefTRIAXone 1GM/50ML D5W 50 ML IV SCH (08:40)
[2023-04-09] MEDS ORDERED: POTA-220 PO (10:04)
[2023-04-09] MEDS ORDERED: LEVO500T91 PO (10:04)
[2023-04-09] MEDS ORDERED: MET500T PO (10:04)
[2023-04-09] MEDS ORDERED: FURO40TA4 PO (10:04)
[2023-04-10] MEDS: FUROSEMIDE 40 MG TAB PO SCH (05:42)
[2023-04-10] MEDS: metroNIDAZOLE 500MG/100ML 100 ML IV SCH (05:42)
[2023-04-10 08:00] VITALS: PULSE 72; RESP 18; O2SAT 97
[2023-04-10 09:00] VITALS: BP 123/59; PULSE 88; RESP 17; TEMP 98.3; O2SAT 92
[2023-04-10] MEDS: cefTRIAXone 1GM/50ML D5W 50 ML IV SCH (09:00)
[2023-04-10] MEDS: POTASSIUM CHL 20 Meq TABLET PO SCH (09:00)
[2023-04-10 13:00] VITALS: BP 137/70; PULSE 80; RESP 18; TEMP 98.8; O2SAT 94
[2023-04-10] MEDS: metroNIDAZOLE 500 MG TAB PO SCH ×2 (14:00→20:08)
[2023-04-10 20:00] VITALS: PULSE 75; RESP 18; O2SAT 98
[2023-04-10 21:43] VITALS: BP 103/44; PULSE 67; RESP 16; TEMP 98.1; O2SAT 95
[2023-04-11 05:00] VITALS: BP 100/39; PULSE 56; RESP 18; TEMP 98.4; O2SAT 100
[2023-04-11 05:16] VITALS: BP 100/39; PULSE 67; RESP 16; TEMP 97.8; O2SAT 100
[2023-04-11] MEDS: FUROSEMIDE 40 MG TAB PO SCH (05:43)
[2023-04-11] MEDS: metroNIDAZOLE 500 MG TAB PO SCH (05:43)
[2023-04-11 09:00] VITALS: BP 113/58; PULSE 69; RESP 17; TEMP 97.8; O2SAT 98
[2023-04-11] MEDS: cefTRIAXone 1GM/50ML D5W 50 ML IV SCH (09:00)
[2023-04-11] MEDS: POTASSIUM CHL 20 Meq TABLET PO SCH (10:00)
== END 2023-04-11 13:00 | disposition home or self-care (01) | DRG 393 ==
LOC: ER 05:12 → EAST 13:28 → OVERFLOW 13:28 → EAST 20:32
PROVIDERS: ADMIT Nurse Practitioner Family; ATTEND Internal Medicine
DX: K35.80 Unspecified acute appendicitis (principal); I50.43 Acute on chronic combined systolic (congestive) and diastolic (congestive) heart failure; K57.32 Diverticulitis of large intestine without perforation or abscess without bleeding; S22.32XA Fracture of one rib, left side, initial encounter for closed fracture; G91.2 (Idiopathic) normal pressure hydrocephalus; Z59.00 Homelessness unspecified; I11.0 Hypertensive heart disease with heart failure; W18.39XA Other fall on same level, initial encounter; K52.9 Noninfective gastroenteritis and colitis, unspecified; Z88.0 Allergy status to penicillin; E66.9 Obesity, unspecified; Z68.29 Body mass index [BMI] 29.0-29.9, adult; G62.9 Polyneuropathy, unspecified; Z79.899 Other long term (current) drug therapy; Z81.8 Family history of other mental and behavioral disorders; Z83.3 Family history of diabetes mellitus; Z90.49 Acquired absence of other specified parts of digestive tract; Y93.89 Activity, other specified; Y92.89 Other specified places as the place of occurrence of the external cause; Y99.8 Other external cause status
CPT/HCPCS: 36415; 71045; 74176; 76705; 80048; 80053; 81001; 83690; 83735; 83880; 84484; 85025; 85610; 85730; 87081; 87493; 93005; G0378; J0696; J3490

== ENCOUNTER 2023-05-31 20:18 | Emergency (ER) | payer MEDICARE, OTHER ==
[~2023-05-31] VITALS: Ht 165.1 cm; Wt 80.0 kg
[~2023-05-31 20:18] MED LIST changes: +FURO40TA4 PO; +LEVO500T91 PO; +MET500T PO; +POTA-220 PO
[2023-05-31 20:36] VITALS: BP 139/70; PULSE 90; RESP 20; O2SAT 98
[2023-05-31] MEDS ORDERED: ONDANSETRON ODT 4 MG TAB PO ONE (20:45)
[2023-05-31 21:40] LABS: Basophils # (auto) 0 10 ^3/uL (0-0.2); Basophils % (auto) 0.2 % (0.0-2.0); Eosinophils # (auto) 0.1 10 ^3/uL (0-0.8); Eosinophils % (auto) 1.1 % (0.0-7.0); Hematocrit 39.2 % (41.0-53.0); Hemoglobin 13.5 g/dL (13.5-17.5); Lymphocytes # (auto) 0.7 10 ^3/uL (0.4-5.4); Lymphocytes % (auto) 9.6 % (10.0-50.0); Mean Corpuscular Hemoglobin 31.9 pg (28.0-32.0); Mean Corpuscular Hgb Conc. 34.4 g/dL (32.0-36.0); Mean Corpuscular Volume 92.5 fL (80.0-100.0); Monocytes # (auto) 0.5 10 ^3/uL (0-1.3); Monocytes % (auto) 7.2 % (0.0-12.0); Neutrophils # (auto) 5.6 10 ^3/uL (1.6-8.6); Neutrophils % (auto) 81.9 % (37.0-80.0); Red Blood Cells 4.24 10^6/uL (4.5-5.90); Red Cell Distribution Width 14.7 % (11.8-14.3); White Blood Cell 6.8 10^3/uL (4.4-10.8)
[2023-05-31 22:20] LABS: Albumin 4.2 g/dL (3.2-4.8); Alkaline Phosphatase 58 U/L (46-116); Aspartate Aminotransferase 14 U/L (13-40); BUN/Creatinine Ratio 18.7 (10.0-20.0); Bilirubin, Total 1.5 mg/dL (0.2-1.0); Blood Urea Nitrogen 17 mg/dL (9-23); Calcium 8.7 mg/dL (8.7-10.4); Chloride 106 mmol/L (98-107); Glucose 110 mg/dL (74-106); Lipase 40 U/L (12-53); Magnesium 1.9 mg/dL (1.6-2.6); Potassium 4.2 mmol/L (3.5-5.1); Sodium 140 mmol/L (136-145); Total Protein 7.1 g/dL (5.7-8.2)
[2023-05-31 22:24] LABS: Alanine Aminotransferase 9 U/L (7-40)
[2023-05-31 22:26] LABS: Anion Gap 8 (5-15); Carbon Dioxide 24 mmol/L (20-30)
== END 2023-06-01 01:02 | disposition left against medical advice (07) ==
LOC: ER 20:18 → EDBD 20:18 → ER 06-01 01:02
DX: R10.84 Generalized abdominal pain (principal); I11.0 Hypertensive heart disease with heart failure; I50.9 Heart failure, unspecified; Z90.49 Acquired absence of other specified parts of digestive tract
CPT/HCPCS: 36415; 80053; 83605; 83690; 83735; 85025; 93005

== ENCOUNTER 2023-06-02 09:30 | Inpatient (IN) | payer MEDICARE ==
[~2023-06-02] VITALS: Ht 165.1 cm; Wt 68.1 kg
[2023-06-02] MEDS ORDERED: levoFLOXacin 500MG 100 ML IV ONE (10:15)
[2023-06-02] MEDS ORDERED: CLINDAMYCIN 600MG IV 50 ML IV ONE (10:15)
[2023-06-02] MEDS ORDERED: FUROSEMIDE 40 MG/4 ML VIAL IV ONE (10:15)
[2023-06-02 10:32] VITALS: PULSE 77; RESP 19; O2SAT 100
[2023-06-02 10:45] LABS: Urine Bacteria FEW /hpf (None Seen); Urine Blood Negative /uL (Negative); Urine Clarity Clear (Clear); Urine Color Yellow (Yellow); Urine Mucus MANY (None Seen); Urine Protein, UAD TRACE (Negative); Urine Specific Gravity 1.033 (1.001-1.035); Urine Urobilinogen Normal (Negative); Urine WBC 1 /hpf (0 - 3); Urine pH 5.5 (5.0-8.0)
[2023-06-02 11:08] LABS: Basophils # (auto) 0 10 ^3/uL (0-0.2); Basophils % (auto) 0.4 % (0.0-2.0); Eosinophils # (auto) 0 10 ^3/uL (0-0.8); Eosinophils % (auto) 1.2 % (0.0-7.0); Hematocrit 38.7 % (41.0-53.0); Hemoglobin 13.2 g/dL (13.5-17.5); Lymphocytes # (auto) 0.9 10 ^3/uL (0.4-5.4); Lymphocytes % (auto) 25.6 % (10.0-50.0); Mean Corpuscular Hemoglobin 31.4 pg (28.0-32.0); Mean Corpuscular Volume 92.1 fL (80.0-100.0); Monocytes # (auto) 0.3 10 ^3/uL (0-1.3); Monocytes % (auto) 8.4 % (0.0-12.0); Neutrophils # (auto) 2.2 10 ^3/uL (1.6-8.6); Neutrophils % (auto) 64.4 % (37.0-80.0); Nucleated Red Blood Cells % 0.1 %; Red Cell Distribution Width 14.4 % (11.8-14.3); White Blood Cell 3.3 10^3/uL (4.4-10.8)
[2023-06-02 11:33] LABS: Chloride 109 mmol/L (98-107); Potassium 3.9 mmol/L (3.5-5.1); Sodium 139 mmol/L (136-145)
[2023-06-02 11:34] LABS: Anion Gap 8 (5-15); Carbon Dioxide 22 mmol/L (20-30)
[2023-06-02 11:35] LABS: Calcium 8.8 mg/dL (8.5-10.1)
[2023-06-02 11:39] LABS: BUN/Creatinine Ratio 19.5 (10.0-20.0); Blood Urea Nitrogen 15 mg/dL (9-23); Glucose 88 mg/dL (74-106)
[2023-06-02 11:40] LABS: Amphetamine Screen, Urine Neg (NEGATIVE)
[2023-06-02 11:41] LABS: Barbiturate Scree,Urine Neg (NEGATIVE); Benzodiazephine Screen, Urine Neg (NEGATIVE); Cannabinoid Screen, Urine Neg (NEGATIVE); Cocaine Screen, Urine Neg (NEGATIVE); Opiate Scree,Urine Neg (NEGATIVE); Phencyclidine Screen, Urine Neg (NEGATIVE)
[2023-06-02] MEDS ORDERED: DOCUSATE SOD 100 MG CAP PO PRN (14:30)
[2023-06-02] MEDS ORDERED: ONDANSETRON HCL 4 MG/2 ML VIAL IV PRN (14:30)
[2023-06-02] MEDS ORDERED: MORPHINE SULFATE INJ 2 MG/ml SYRG IV PRN (14:30)
[2023-06-02] MEDS: FUROSEMIDE 40 MG/4 ML VIAL IV SCH (18:03)
[2023-06-02 19:31] VITALS: PULSE 73; RESP 12; O2SAT 98
[2023-06-02] MEDS: CLINDAMYCIN 300MG IV 50 ML IV SCH (21:31)
[2023-06-03 05:00] VITALS: BP 129/56; PULSE 66; RESP 16; TEMP 97.4; O2SAT 98
[2023-06-03] MEDS: FUROSEMIDE 40 MG/4 ML VIAL IV SCH ×2 (05:29→18:00)
[2023-06-03] MEDS: CLINDAMYCIN 300MG IV 50 ML IV SCH (05:30)
[2023-06-03 05:51] LABS: Basophils # (auto) 0 10 ^3/uL (0-0.2); Basophils % (auto) 0.4 % (0.0-2.0); Eosinophils # (auto) 0.1 10 ^3/uL (0-0.8); Eosinophils % (auto) 1.8 % (0.0-7.0); Hematocrit 37.4 % (41.0-53.0); Hemoglobin 12.7 g/dL (13.5-17.5); Lymphocytes # (auto) 1.1 10 ^3/uL (0.4-5.4); Lymphocytes % (auto) 24.7 % (10.0-50.0); Mean Corpuscular Hemoglobin 31.3 pg (28.0-32.0); Monocytes # (auto) 0.4 10 ^3/uL (0-1.3); Monocytes % (auto) 8.4 % (0.0-12.0); Neutrophils # (auto) 2.9 10 ^3/uL (1.6-8.6); Neutrophils % (auto) 64.7 % (37.0-80.0); Nucleated Red Blood Cells % 0.1 %; Red Blood Cells 4.07 10^6/uL (4.5-5.90); Red Cell Distribution Width 14.5 % (11.8-14.3); White Blood Cell 4.5 10^3/uL (4.4-10.8)
[2023-06-03 06:17] LABS: Albumin 3.9 g/dL (3.2-4.8); Alkaline Phosphatase 47 U/L (46-116); Anion Gap 8 (5-15); BUN/Creatinine Ratio 14.7 (10.0-20.0); Blood Urea Nitrogen 15 mg/dL (9-23); Calcium 9.1 mg/dL (8.5-10.1); Carbon Dioxide 27 mmol/L (20-30); Chloride 106 mmol/L (98-107); Glucose 99 mg/dL (74-106); Sodium 141 mmol/L (136-145)
[2023-06-03 06:18] LABS: Aspartate Aminotransferase 16 U/L (13-40); Bilirubin, Total 1.6 mg/dL (0.2-1.0); Total Protein 6.6 g/dL (5.7-8.2)
[2023-06-03 06:48] LABS: Alanine Aminotransferase < 9 U/L (7-40)
[2023-06-03 08:04] VITALS: O2SAT 95
[2023-06-03 09:00] VITALS: BP 118/56; PULSE 71; RESP 16; TEMP 98.2; O2SAT 97
[2023-06-03] MEDS: ENOXAPARIN SOD 40 MG/0.4 ML SYRINGE SC SCH (09:32)
[2023-06-03] MEDS ORDERED: cefTRIAXone 1GM/50ML D5W 50 ML IV ONE (10:15)
[2023-06-03 13:00] VITALS: BP 122/66; PULSE 64; RESP 17; TEMP 98; O2SAT 96
[2023-06-03 17:00] VITALS: BP 132/67; PULSE 75; RESP 17; TEMP 98.2; O2SAT 98
[2023-06-03] MEDS: CIPROFLOXACIN HCL 500 MG TAB PO SCH (21:24)
[2023-06-03 22:00] VITALS: BP 106/49; PULSE 70; RESP 16; TEMP 98; O2SAT 97
[2023-06-04 04:32] VITALS: BP 105/59; PULSE 76; RESP 16; TEMP 98; O2SAT 93
[2023-06-04] MEDS: FUROSEMIDE 40 MG/4 ML VIAL IV SCH ×2 (05:38→17:32)
[2023-06-04 08:00] VITALS: O2SAT 95
[2023-06-04] MEDS: CIPROFLOXACIN HCL 500 MG TAB PO SCH ×2 (08:34→21:23)
[2023-06-04] MEDS: ENOXAPARIN SOD 40 MG/0.4 ML SYRINGE SC SCH (08:34)
[2023-06-04] MEDS: cefTRIAXone 1GM/50ML D5W 50 ML IV SCH (08:34)
[2023-06-04 09:00] VITALS: BP 112/57; PULSE 68; RESP 16; TEMP 98.3; O2SAT 94
[2023-06-04 13:00] VITALS: BP 116/61; PULSE 68; RESP 17; TEMP 98.2; O2SAT 97
[2023-06-04 17:00] VITALS: BP 100/67; PULSE 77; RESP 16; TEMP 98; O2SAT 96
[2023-06-04 21:54] VITALS: BP 113/56; PULSE 68; RESP 16; TEMP 97.7; O2SAT 97
[2023-06-05 05:00] VITALS: BP 130/55; PULSE 60; RESP 16; TEMP 97.9; O2SAT 98
[2023-06-05] MEDS: FUROSEMIDE 40 MG/4 ML VIAL IV SCH (05:37)
[2023-06-05 09:00] VITALS: BP 92/39; PULSE 62; RESP 18; TEMP 97.6; O2SAT 94
[2023-06-05] MEDS: ENOXAPARIN SOD 40 MG/0.4 ML SYRINGE SC SCH (09:18)
[2023-06-05] MEDS: CIPROFLOXACIN HCL 500 MG TAB PO SCH (09:18)
[2023-06-05] MEDS: cefTRIAXone 1GM/50ML D5W 50 ML IV SCH (09:19)
[2023-06-05 11:28] LABS: COVID19 ANTIGEN SOFIA FIA NEGATIVE (NEGATIVE)
[2023-06-05 13:00] VITALS: BP 98/54; PULSE 87; RESP 18; TEMP 97.7; O2SAT 94
[2023-06-05 13:09] VITALS: BP 118/65; PULSE 62; RESP 18; TEMP 97.6; O2SAT 96
== END 2023-06-05 16:45 | DRG 603 ==
LOC: ER 09:30 → OVERFLOW 14:38 → CENTRAL 06-03 01:20
PROVIDERS: ADMIT Nurse Practitioner Family; ATTEND Family Medicine
DX: L03.115 Cellulitis of right lower limb (principal); Z59.00 Homelessness unspecified; I11.0 Hypertensive heart disease with heart failure; L03.116 Cellulitis of left lower limb; Z20.822 Contact with and (suspected) exposure to COVID-19; D69.6 Thrombocytopenia, unspecified; Z88.0 Allergy status to penicillin; Z79.899 Other long term (current) drug therapy; I50.9 Heart failure, unspecified
CPT/HCPCS: 36415; 80048; 80053; 80307; 81001; 83605; 83690; 83735; 85025; 85048; 87045; 87426; 87427; 87493; 93005; 93306; 97163; G0378; J1956; J2405; J3490

== ENCOUNTER 2023-09-19 01:22 | Emergency (ER) | payer MEDICARE, MEDICAID ==
[~2023-09-19] VITALS: Ht 167.6 cm; Wt 100.0 kg
[~2023-09-19 01:22] MED LIST changes: -FURO1TAB31 PO; -FURO40TA4 PO; -LEVO500T91 PO; -MET500T PO; -POTA-220 PO
[2023-09-19 01:43] LABS: Basophils # (auto) 0 10 ^3/uL (0-0.2); Basophils % (auto) 0.7 % (0.0-2.0); Eosinophils # (auto) 0.2 10 ^3/uL (0-0.8); Eosinophils % (auto) 3.2 % (0.0-7.0); Hematocrit 42.4 % (41.0-53.0); Hemoglobin 14.3 g/dL (13.5-17.5); Lymphocytes # (auto) 1.7 10 ^3/uL (0.4-5.4); Lymphocytes % (auto) 24.1 % (10.0-50.0); Mean Corpuscular Hemoglobin 30.7 pg (28.0-32.0); Mean Corpuscular Hgb Conc. 33.9 g/dL (32.0-36.0); Mean Corpuscular Volume 90.6 fL (80.0-100.0); Monocytes # (auto) 0.6 10 ^3/uL (0-1.3); Monocytes % (auto) 7.8 % (0.0-12.0); Neutrophils # (auto) 4.6 10 ^3/uL (1.6-8.6); Neutrophils % (auto) 64.2 % (37.0-80.0); Red Blood Cells 4.68 10^6/uL (4.5-5.90); Red Cell Distribution Width 14.6 % (11.8-14.3); White Blood Cell 7.1 10^3/uL (4.4-10.8)
[2023-09-19 02:09] LABS: Chloride 110 mmol/L (98-107); Potassium 3.9 mmol/L (3.5-5.1); Sodium 143 mmol/L (136-145)
[2023-09-19 02:10] LABS: Anion Gap 11 (5-15); Carbon Dioxide 22 mmol/L (20-30)
[2023-09-19 02:11] LABS: Calcium 9.7 mg/dL (8.7-10.4)
[2023-09-19 02:15] LABS: BUN/Creatinine Ratio 12.4 (10.0-20.0); Blood Urea Nitrogen 14 mg/dL (9-23); Glucose 113 mg/dL (74-106)
[2023-09-19] MEDS: ASPirin 81 mg TAB PO ONE (05:05)
[2023-09-19 05:11] VITALS: TEMP 97.9
[2023-09-19] MEDS ORDERED: MORPHINE SULFATE 4 MG/ML SYR/VIAL IV PRN (09:00)
[2023-09-19] MEDS ORDERED: NITROGLYCERIN 0.4 MG SL TAB SL PRN (09:00)
[2023-09-19] MEDS ORDERED: ONDANSETRON HCL 4 MG/2 ML VIAL IV PRN (09:00)
[2023-09-19] MEDS ORDERED: ACETAMINOPHEN 325 MG TAB PO PRN (09:00)
[2023-09-19 09:26] VITALS: BP 124/56; PULSE 71; RESP 16; O2SAT 96
[2023-09-19] MEDS ORDERED: DOCUSATE SOD 100 MG CAP PO SCH (10:00)
[2023-09-19] MEDS ORDERED: ASPirin 81 mg TAB PO SCH (10:00)
[2023-09-19] MEDS ORDERED: ATORVASTATIN 20 MG TAB PO SCH (22:00)
== END 2023-09-19 10:01 | disposition left against medical advice (07) ==
LOC: EDBD 01:22 → ER 01:22
DX: R07.9 Chest pain, unspecified (principal); R60.9 Edema, unspecified; I24.9 Acute ischemic heart disease, unspecified; I11.0 Hypertensive heart disease with heart failure; I50.9 Heart failure, unspecified; Z88.0 Allergy status to penicillin; Z90.49 Acquired absence of other specified parts of digestive tract; Z59.00 Homelessness unspecified
CPT/HCPCS: 36415; 71045; 80048; 84484; 85025; 93005

== ENCOUNTER 2023-10-01 14:28 | Inpatient (IN) | payer MEDICARE, MEDICAID ==
[~2023-10-01] VITALS: Ht 165.1 cm; Wt 79.6 kg
[2023-10-01 17:33] LABS: Basophils # (auto) 0 10 ^3/uL (0-0.2); Basophils % (auto) 0.7 % (0.0-2.0); Eosinophils # (auto) 0.2 10 ^3/uL (0-0.8); Eosinophils % (auto) 2.3 % (0.0-7.0); Hematocrit 40.2 % (41.0-53.0); Hemoglobin 13.5 g/dL (13.5-17.5); Lymphocytes # (auto) 1.5 10 ^3/uL (0.4-5.4); Lymphocytes % (auto) 22.9 % (10.0-50.0); Mean Corpuscular Hemoglobin 30.6 pg (28.0-32.0); Mean Corpuscular Hgb Conc. 33.5 g/dL (32.0-36.0); Mean Corpuscular Volume 91.4 fL (80.0-100.0); Monocytes # (auto) 0.5 10 ^3/uL (0-1.3); Monocytes % (auto) 7.3 % (0.0-12.0); Neutrophils # (auto) 4.5 10 ^3/uL (1.6-8.6); Neutrophils % (auto) 66.8 % (37.0-80.0); Nucleated Red Blood Cells % 0.1 %; White Blood Cell 6.7 10^3/uL (4.4-10.8)
[2023-10-01 17:41] LABS: Alanine Aminotransferase 21 U/L (7-40); Alkaline Phosphatase 57 U/L (46-116); Anion Gap 6 (5-15); BUN/Creatinine Ratio 12.6 (10.0-20.0); Blood Urea Nitrogen 15 mg/dL (9-23); Calcium 9.2 mg/dL (8.5-10.1); Carbon Dioxide 27 mmol/L (20-30); Chloride 113 mmol/L (98-107); Glucose 131 mg/dL (74-106); Potassium 4.2 mmol/L (3.5-5.1); Sodium 146 mmol/L (136-145)
[2023-10-01 17:42] LABS: Albumin 4.3 g/dL (3.2-4.8); Aspartate Aminotransferase 17 U/L (13-40); Bilirubin, Total 1.1 mg/dL (0.2-1.0); Creatine Kinase IFCC 84 U/L (46-171); Total Protein 7.2 g/dL (5.7-8.2)
[2023-10-01 18:36] LABS: Magnesium 2.1 mg/dL (1.6-2.6)
[2023-10-01] MEDS: IOHEXOL 350 MG/ML 100ML IJ ONE (20:20)
[2023-10-01 22:53] VITALS: PULSE 79; RESP 18; O2SAT 99
[2023-10-01] MEDS ORDERED: ONDANSETRON HCL 4 MG/2 ML VIAL IV PRN (23:30)
[2023-10-01] MEDS ORDERED: ACETAMINOPHEN 325 MG TAB PO PRN (23:30)
[2023-10-02] VITALS (9 sets, daily range): BP systolic 114–142; BP diastolic 48–71; PULSE 68–78; RESP 18–24; TEMP 97.7–98.6; O2SAT 91–100
[2023-10-02] MEDS: SODIUM CHLORIDE 0.9% 1,000 ML IV ONE (00:36)
[2023-10-02 06:15] LABS: Basophils # (auto) 0 10 ^3/uL (0-0.2); Basophils % (auto) 0.5 % (0.0-2.0); Eosinophils # (auto) 0.2 10 ^3/uL (0-0.8); Eosinophils % (auto) 3.3 % (0.0-7.0); Hematocrit 37.7 % (41.0-53.0); Hemoglobin 12.8 g/dL (13.5-17.5); Lymphocytes # (auto) 1.4 10 ^3/uL (0.4-5.4); Lymphocytes % (auto) 23.5 % (10.0-50.0); Mean Corpuscular Hemoglobin 30.8 pg (28.0-32.0); Mean Corpuscular Hgb Conc. 33.8 g/dL (32.0-36.0); Mean Corpuscular Volume 91.2 fL (80.0-100.0); Monocytes # (auto) 0.4 10 ^3/uL (0-1.3); Monocytes % (auto) 7.7 % (0.0-12.0); Neutrophils # (auto) 3.8 10 ^3/uL (1.6-8.6); Nucleated Red Blood Cells % 0.1 %; Red Blood Cells 4.14 10^6/uL (4.5-5.90); Red Cell Distribution Width 15.1 % (11.8-14.3); White Blood Cell 5.8 10^3/uL (4.4-10.8)
[2023-10-02 06:22] LABS: Chloride 112 mmol/L (98-107); Potassium 3.9 mmol/L (3.5-5.1); Sodium 144 mmol/L (136-145)
[2023-10-02 06:23] LABS: Anion Gap 9 (5-15); Carbon Dioxide 23 mmol/L (20-30)
[2023-10-02 06:24] LABS: Calcium 9.1 mg/dL (8.7-10.4)
[2023-10-02 06:28] LABS: BUN/Creatinine Ratio 11.8 (10.0-20.0); Blood Urea Nitrogen 11 mg/dL (9-23); Glucose 118 mg/dL (74-106)
[2023-10-02 08:39] LABS: Triglycerides 127 mg/dL (< 150)
[2023-10-02 08:40] LABS: LDL Cholesterol 60 mg/dL (< 100)
[2023-10-02 08:41] LABS: Cholesterol 127 mg/dL (< 200); HDL Cholesterol 50 mg/dL (40-59)
[2023-10-02 09:13] LABS: Free T4 (Free Thyroxine) 1.17 ng/dL (0.89-1.76)
[2023-10-02] MEDS: LISINOPRIL 5 MG TAB PO SCH (10:39)
[2023-10-02] MEDS: ASPirin 81 mg TAB PO SCH (10:39)
[2023-10-02] MEDS: ENOXAPARIN SOD 40 MG/0.4 ML SYRINGE SC SCH (10:40)
[2023-10-02] MEDS: FUROSEMIDE 40 MG TAB PO SCH (10:41)
[2023-10-02 16:12] LABS: Urine Bacteria None Seen /hpf (None Seen)
[2023-10-02 16:19] LABS: Urine Blood Negative /uL (Negative); Urine Clarity Clear (Clear); Urine Color Light-Yellow (Yellow); Urine Protein, UAD Negative (Negative); Urine Specific Gravity 1.019 (1.001-1.035); Urine Urobilinogen Normal (Negative); Urine WBC <1 /hpf (0 - 3); Urine pH 6.5 (5.0-9.0)
[2023-10-02] MEDS: CYANOCOBALAMIN 500 MCG TAB PO ONE (17:25)
[2023-10-02] MEDS: ERGOCALCIFEROL 50,000 UNIT(1.25MG) CAP PO SCH (17:26)
[2023-10-02] MEDS: CYANOCOBALAMIN (B-12) 1000 MCG/1 ML VIAL SUBCUT ONE (17:26)
[2023-10-03] VITALS (8 sets, daily range): BP systolic 107–144; BP diastolic 52–72; PULSE 68–82; RESP 16–19; TEMP 97.7–98.8; O2SAT 93–99
[2023-10-03] MEDS: CYANOCOBALAMIN 500 MCG TAB PO SCH (08:45)
[2023-10-04] VITALS (8 sets, daily range): BP systolic 100–141; BP diastolic 33–71; PULSE 66–89; RESP 16–21; TEMP 97.1–98.5; O2SAT 90–100
[2023-10-05] VITALS (8 sets, daily range): BP systolic 103–126; BP diastolic 50–69; PULSE 68–100; RESP 16–20; TEMP 97.9–98.5; O2SAT 91–97
[2023-10-06 01:00] VITALS: BP 118/49; PULSE 71; RESP 18; TEMP 97.9; O2SAT 94
[2023-10-06 05:00] VITALS: BP 106/49; PULSE 82; RESP 18; TEMP 97.2; O2SAT 93
== END 2023-10-06 06:54 | disposition left against medical advice (07) | DRG 291 ==
LOC: ER 14:28 → EDBD 14:28 → ER 23:20 → OVERFLOW 23:20 → WEST WING 10-02 03:30
PROVIDERS: ADMIT Internal Medicine; ATTEND Internal Medicine
DX: I11.0 Hypertensive heart disease with heart failure (principal); I50.33 Acute on chronic diastolic (congestive) heart failure; Z59.01 Sheltered homelessness; E11.40 Type 2 diabetes mellitus with diabetic neuropathy, unspecified; R26.9 Unspecified abnormalities of gait and mobility; F03.90 Unspecified dementia, unspecified severity, without behavioral disturbance, psychotic disturbance, mood disturbance, and anxiety; Z53.29 Procedure and treatment not carried out because of patient's decision for other reasons; Z88.0 Allergy status to penicillin; Z90.49 Acquired absence of other specified parts of digestive tract; Z83.3 Family history of diabetes mellitus; Z79.899 Other long term (current) drug therapy; Z79.84 Long term (current) use of oral hypoglycemic drugs
CPT/HCPCS: 36415; 70450; 71045; 74177; 80048; 80053; 80061; 81001; 82306; 82550; 82607; 82962; 83036; 83605; 83690; 83735; 83880; 84439; 84443; 84484; 85025; 93970; 97110; 97116; 97163; 97530; G0378

== ENCOUNTER 2023-11-08 01:28 | Inpatient (IN) | payer MEDICARE, MEDICAID ==
[~2023-11-08] VITALS: Ht 165.1 cm; Wt 79.8 kg
[2023-11-08 02:11] VITALS: PULSE 82; RESP 16; O2SAT 94
[2023-11-08 02:53] LABS: Urine Bacteria None Seen /hpf (None Seen)
[2023-11-08 02:59] LABS: Urine Blood Negative /uL (Negative); Urine Clarity Clear (Clear); Urine Color Light-Yellow (Yellow); Urine Mucus FEW (None Seen); Urine Protein, UAD Negative (Negative); Urine Specific Gravity 1.013 (1.001-1.035); Urine Urobilinogen Normal (Negative); Urine WBC <1 /hpf (0 - 3)
[2023-11-08 03:17] LABS: Basophils # (auto) 0 10 ^3/uL (0-0.2); Basophils % (auto) 0.6 % (0.0-2.0); Eosinophils # (auto) 0.2 10 ^3/uL (0-0.8); Eosinophils % (auto) 2.5 % (0.0-7.0); Hematocrit 41.2 % (41.0-53.0); Hemoglobin 14.3 g/dL (13.5-17.5); Lymphocytes # (auto) 1.5 10 ^3/uL (0.4-5.4); Lymphocytes % (auto) 24.5 % (10.0-50.0); Mean Corpuscular Hgb Conc. 34.7 g/dL (32.0-36.0); Mean Corpuscular Volume 89.5 fL (80.0-100.0); Monocytes # (auto) 0.5 10 ^3/uL (0-1.3); Monocytes % (auto) 7.7 % (0.0-12.0); Neutrophils % (auto) 64.7 % (37.0-80.0); Nucleated Red Blood Cells % 0.1 %; Red Cell Distribution Width 14.5 % (11.8-14.3); White Blood Cell 6.2 10^3/uL (4.4-10.8)
[2023-11-08 03:27] LABS: Chloride 108 mmol/L (98-107); Potassium 3.6 mmol/L (3.5-5.1); Sodium 141 mmol/L (136-145)
[2023-11-08 03:28] LABS: Anion Gap 7 (5-15); Calcium 9.1 mg/dL (8.7-10.4); Carbon Dioxide 26 mmol/L (20-30)
[2023-11-08 03:33] LABS: BUN/Creatinine Ratio 9.9 (10.0-20.0); Blood Urea Nitrogen 9 mg/dL (9-23); Glucose 117 mg/dL (74-106)
[2023-11-08] MEDS ORDERED: ONDANSETRON HCL 4 MG/2 ML VIAL IV PRN ×2 (05:00→06:00)
[2023-11-08] MEDS ORDERED: ACETAMINOPHEN 325 MG TAB PO PRN (05:00)
[2023-11-08] MEDS ORDERED: DOCUSATE SOD 100 MG CAP PO PRN (05:00)
[2023-11-08] MEDS ORDERED: HYDROcodone-ACET 5/325MG TAB PO PRN (05:00)
[2023-11-08] MEDS ORDERED: hydrALAZINE HCL 20 MG/ML VL IV PRN (05:00)
[2023-11-08] MEDS ORDERED: DEXTROSE (50%) 50ML SYRG IV PRN (05:00)
[2023-11-08 05:26] LABS: Alkaline Phosphatase 61 U/L (46-116)
[2023-11-08 05:27] LABS: Alanine Aminotransferase 14 U/L (7-40); Aspartate Aminotransferase 10 U/L (13-40)
[2023-11-08 05:28] LABS: Bilirubin, Total 1.3 mg/dL (0.2-1.0); Total Protein 6.6 g/dL (5.7-8.2)
[2023-11-08] MEDS: SODIUM CHLOR 0.9% PF (SALINE LOCK) 10ML VIAL/SYR IV SCH (06:00)
[2023-11-08 08:00] VITALS: PULSE 74; RESP 18; O2SAT 94
[2023-11-08] MEDS ORDERED: NITROGLYCERIN 0.4 MG SL TAB SL PRN (08:00)
[2023-11-08] MEDS ORDERED: MORPHINE SULFATE INJ 2 MG/ml SYRG IV PRN (08:00)
[2023-11-08] MEDS: ACCU-CHEK COMFORT CURVE STRIP VI SCH (12:03)
[2023-11-08] MEDS: ASPirin 81 mg TAB PO SCH (12:04)
[2023-11-08] MEDS: amLODIPine BESYLATE 5 MG TAB PO SCH (12:05)
[2023-11-08] MEDS: CARVEDILOL 3.125 MG TAB PO SCH (12:07)
[2023-11-08] MEDS: FAMOTIDINE (10MG/ML) 2ML VL IV SCH (12:08)
[2023-11-08] MEDS: InsuLIN REG 1unit/0.01ml Soln (100units/ml) SC SCH (12:08)
[2023-11-08 16:57] VITALS: BP 98/59; PULSE 61; RESP 16; TEMP 97.9; O2SAT 100
[2023-11-08 17:19] VITALS: BP 95/59; PULSE 61; RESP 16; TEMP 97.9; O2SAT 97
[2023-11-08 20:00] VITALS: PULSE 66
[2023-11-08 21:00] VITALS: BP 126/55; PULSE 79; RESP 18; TEMP 97.9; O2SAT 95
[2023-11-08 22:22] LABS: Amphetamine Screen, Urine Neg (NEGATIVE); Barbiturate Scree,Urine Neg (NEGATIVE); Benzodiazephine Screen, Urine Neg (NEGATIVE); Cannabinoid Screen, Urine Neg (NEGATIVE); Cocaine Screen, Urine Neg (NEGATIVE); Opiate Scree,Urine Neg (NEGATIVE); Phencyclidine Screen, Urine Neg (NEGATIVE)
[2023-11-09] VITALS (9 sets, daily range): BP systolic 99–144; BP diastolic 46–62; PULSE 59–70; RESP 16–18; TEMP 97.6–98.3; O2SAT 94–99
[2023-11-09] MEDS: CYANOCOBALAMIN 500 MCG TAB PO SCH (10:06)
[2023-11-10] VITALS (8 sets, daily range): BP systolic 128–162; BP diastolic 56–84; PULSE 56–98; RESP 16–18; TEMP 97.5–98.6; O2SAT 94–99
[2023-11-11] VITALS (8 sets, daily range): BP systolic 92–129; BP diastolic 42–62; PULSE 60–81; RESP 15–21; TEMP 97.8–98.3; O2SAT 94–96
[2023-11-12] VITALS (9 sets, daily range): BP systolic 12–169; BP diastolic 41–82; PULSE 51–95; RESP 15–97; TEMP 97.4–98.8; O2SAT 93–100
[2023-11-12] MEDS: LORazepam 2MG/ML-1ML VIAL IV PRN (09:38)
[2023-11-13] VITALS (8 sets, daily range): BP systolic 120–147; BP diastolic 53–82; PULSE 56–96; RESP 16–19; TEMP 97.5–98; O2SAT 93–99
[2023-11-13] MEDS ORDERED: CARV6.2517 PO (13:10)
[2023-11-13] MEDS ORDERED: AMLO1TAB23 PO (13:10)
[2023-11-13] MEDS ORDERED: ASPI-628 PO (13:10)
[2023-11-14 01:00] VITALS: BP 140/62; PULSE 67; RESP 18; TEMP 97.6; O2SAT 97
[2023-11-14 05:00] VITALS: BP 118/57; PULSE 67; RESP 18; TEMP 97.9; O2SAT 97
[2023-11-14 07:09] VITALS: BP 140/62; PULSE 67; TEMP 36.6
[2023-11-14 07:51] VITALS: RESP 19; O2SAT 95
[2023-11-14 08:00] VITALS: PULSE 83
[2023-11-14 09:00] VITALS: BP 119/62; PULSE 94; RESP 18; TEMP 98.2; O2SAT 96
== END 2023-11-14 10:40 | disposition home or self-care (01) | DRG 291 ==
LOC: ER 01:28 → EDBD 01:28 → ER 05:51 → TELE 08:01 → TELE-WESTW 16:31
PROVIDERS: ADMIT Nurse Practitioner Family; ATTEND Family Medicine
DX: I11.0 Hypertensive heart disease with heart failure (principal); I50.43 Acute on chronic combined systolic (congestive) and diastolic (congestive) heart failure; Z59.01 Sheltered homelessness; I16.0 Hypertensive urgency; F03.90 Unspecified dementia, unspecified severity, without behavioral disturbance, psychotic disturbance, mood disturbance, and anxiety; E11.42 Type 2 diabetes mellitus with diabetic polyneuropathy; M65.341 Trigger finger, right ring finger; R32 Unspecified urinary incontinence; Z79.82 Long term (current) use of aspirin; Z81.8 Family history of other mental and behavioral disorders; Z83.3 Family history of diabetes mellitus; Z88.0 Allergy status to penicillin; Z91.199 Patient's noncompliance with other medical treatment and regimen due to unspecified reason; Z79.4 Long term (current) use of insulin
CPT/HCPCS: 36415; 70450; 70551; 73200; 80053; 80307; 81001; 82962; 83880; 84484; 85025; 87081; 93005; 93306; 93886; 97110; 97116; 97163; 97530; G0378; J1815; J3490

== ENCOUNTER 2023-11-15 03:06 | Inpatient (IN) | payer MEDICARE, MEDICAID ==
[~2023-11-15] VITALS: Ht 165.1 cm; Wt 108.0 kg
[~2023-11-15 03:06] MED LIST changes: +AMLO1TAB23 PO; +ASPI-628 PO; +CARV6.2517 PO; -POTA1TAB4 PO
[2023-11-15 03:35] VITALS: PULSE 74; RESP 18; O2SAT 92
[2023-11-15 04:08] LABS: Alanine Aminotransferase 22 U/L (7-40); Albumin 4.5 g/dL (3.2-4.8); Alkaline Phosphatase 66 U/L (46-116); Anion Gap 6 (5-15); Aspartate Aminotransferase 15 U/L (13-40); BUN/Creatinine Ratio 17.3 (10.0-20.0); Bilirubin, Total 2.1 mg/dL (0.2-1.0); Blood Urea Nitrogen 18 mg/dL (9-23); Carbon Dioxide 27 mmol/L (20-30); Chloride 105 mmol/L (98-107); Glucose 143 mg/dL (74-106); Lipase 41 U/L (12-53); Potassium 4.3 mmol/L (3.5-5.1); Sodium 138 mmol/L (136-145); Total Protein 7.7 g/dL (5.7-8.2)
[2023-11-15 04:09] LABS: Basophils # (auto) 0 10 ^3/uL (0-0.2); Basophils % (auto) 0.3 % (0.0-2.0); Eosinophils # (auto) 0.2 10 ^3/uL (0-0.8); Eosinophils % (auto) 1.8 % (0.0-7.0); Hematocrit 46.6 % (41.0-53.0); Hemoglobin 15.9 g/dL (13.5-17.5); Lymphocytes # (auto) 1.4 10 ^3/uL (0.4-5.4); Lymphocytes % (auto) 14.1 % (10.0-50.0); Mean Corpuscular Hemoglobin 30.6 pg (28.0-32.0); Mean Corpuscular Hgb Conc. 34.1 g/dL (32.0-36.0); Mean Corpuscular Volume 89.8 fL (80.0-100.0); Monocytes # (auto) 0.5 10 ^3/uL (0-1.3); Monocytes % (auto) 5.6 % (0.0-12.0); Neutrophils # (auto) 7.5 10 ^3/uL (1.6-8.6); Neutrophils % (auto) 78.2 % (37.0-80.0); Nucleated Red Blood Cells % 0.1 %; Red Cell Distribution Width 14.4 % (11.8-14.3); White Blood Cell 9.6 10^3/uL (4.4-10.8)
[2023-11-15 04:27] LABS: Blood Alcohol < 3.0 mg/dL (<10)
[2023-11-15] MEDS: MORPHINE SULFATE 4 MG/ML SYR/VIAL IV ONE (05:00)
[2023-11-15] MEDS: metroNIDAZOLE 500MG/100ML 100 ML IV ONE (05:30)
[2023-11-15] MEDS: levoFLOXacin 500MG 100 ML IV ONE (05:53)
[2023-11-15] MEDS ORDERED: ONDANSETRON HCL 4 MG/2 ML VIAL IV PRN (10:00)
[2023-11-15] MEDS ORDERED: MORPHINE SULFATE INJ 2 MG/ml SYRG IV PRN ×2 (10:00)
[2023-11-15] MEDS ORDERED: DOCUSATE SOD 100 MG CAP PO PRN (10:00)
[2023-11-15] MEDS ORDERED: NITROGLYCERIN 0.4 MG SL TAB SL PRN (10:00)
[2023-11-15 10:16] LABS: Urine Bacteria None Seen /hpf (None Seen)
[2023-11-15 10:21] LABS: Urine Blood TRACE /uL (Negative); Urine Clarity Clear (Clear); Urine Color Yellow (Yellow); Urine Mucus FEW (None Seen); Urine Protein, UAD TRACE (Negative); Urine Specific Gravity 1.029 (1.001-1.035); Urine Urobilinogen Normal (Negative); Urine WBC 1 /hpf (0 - 3)
[2023-11-15 11:05] VITALS: BP 107/68; PULSE 76; RESP 18; TEMP 97.4; O2SAT 93
[2023-11-15] MEDS: CIPROFLOXACIN 400MG/200ML 200 ML IV ONE (11:45)
[2023-11-15] MEDS: SODIUM CHLORIDE 0.9% 1,000 ML IV SCH (11:45)
[2023-11-15 13:00] VITALS: BP 123/68; PULSE 75; RESP 16; TEMP 97.8; O2SAT 96
[2023-11-15 13:16] VITALS: RESP 17
[2023-11-15] MEDS: cefTRIAXone 1GM/50ML D5W 50 ML IV ONE (16:51)
[2023-11-15] MEDS: metroNIDAZOLE 500MG/100ML 100 ML IV SCH (16:52)
[2023-11-15 17:00] VITALS: BP 124/65; PULSE 66; RESP 14; TEMP 98; O2SAT 99
[2023-11-15 21:00] VITALS: BP 133/61; PULSE 64; RESP 19; TEMP 98; O2SAT 94
[2023-11-15] MEDS ORDERED: CIPROFLOXACIN 400MG/200ML 200 ML IV SCH (22:00)
[2023-11-16 01:00] VITALS: BP 113/53; PULSE 67; RESP 18; TEMP 98.1; O2SAT 95
[2023-11-16 05:00] VITALS: BP_SYST 104; BP_SYST 118; BP_DIAS 59; BP_DIAS 65; PULSE 73; PULSE 95; RESP 18; RESP 19; TEMP 97.8; TEMP 98.8; O2SAT 93; O2SAT 95
[2023-11-16 05:51] LABS: Basophils # (auto) 0 10 ^3/uL (0-0.2); Basophils % (auto) 0.4 % (0.0-2.0); Eosinophils # (auto) 0.2 10 ^3/uL (0-0.8); Eosinophils % (auto) 2.4 % (0.0-7.0); Hematocrit 39.5 % (41.0-53.0); Hemoglobin 13.7 g/dL (13.5-17.5); Lymphocytes # (auto) 1.6 10 ^3/uL (0.4-5.4); Lymphocytes % (auto) 22.2 % (10.0-50.0); Mean Corpuscular Hemoglobin 31.3 pg (28.0-32.0); Mean Corpuscular Hgb Conc. 34.7 g/dL (32.0-36.0); Mean Corpuscular Volume 90.3 fL (80.0-100.0); Monocytes # (auto) 0.6 10 ^3/uL (0-1.3); Monocytes % (auto) 8.3 % (0.0-12.0); Neutrophils # (auto) 4.7 10 ^3/uL (1.6-8.6); Neutrophils % (auto) 66.7 % (37.0-80.0); Nucleated Red Blood Cells % 0.5 %; Red Blood Cells 4.37 10^6/uL (4.5-5.90); Red Cell Distribution Width 14.4 % (11.8-14.3); White Blood Cell 7.1 10^3/uL (4.4-10.8)
[2023-11-16 06:31] LABS: Alanine Aminotransferase 15 U/L (7-40); Alkaline Phosphatase 59 U/L (46-116); Anion Gap 5 (5-15); BUN/Creatinine Ratio 12.4 (10.0-20.0); Blood Urea Nitrogen 11 mg/dL (9-23); Calcium 8.9 mg/dL (8.5-10.1); Carbon Dioxide 26 mmol/L (20-30); Chloride 109 mmol/L (98-107); Glucose 103 mg/dL (74-106); Potassium 3.9 mmol/L (3.5-5.1); Sodium 140 mmol/L (136-145)
[2023-11-16 06:33] LABS: Albumin 3.8 g/dL (3.2-4.8); Aspartate Aminotransferase 10 U/L (13-40); Bilirubin, Total 2.2 mg/dL (0.2-1.0)
[2023-11-16 06:34] LABS: Total Protein 6.3 g/dL (5.7-8.2)
[2023-11-16 08:49] VITALS: BP 99/63; PULSE 66; RESP 18; TEMP 98.1; O2SAT 98
[2023-11-16] MEDS: cefTRIAXone 1GM/50ML D5W 50 ML IV SCH (09:06)
[2023-11-16 13:00] VITALS: BP 116/53; PULSE 68; RESP 20; TEMP 98; O2SAT 95
[2023-11-16 16:37] VITALS: BP 129/60; PULSE 72; RESP 18; TEMP 98.8; O2SAT 93
[2023-11-16 21:00] VITALS: BP 141/65; PULSE 68; RESP 19; TEMP 98.4; O2SAT 95
[2023-11-17 01:00] VITALS: BP 121/64; PULSE 77; RESP 18; TEMP 98.6; O2SAT 98
[2023-11-17 08:40] VITALS: BP 123/63; PULSE 66; RESP 20; TEMP 98.1; O2SAT 94
[2023-11-17 12:45] VITALS: BP 149/68; PULSE 78; RESP 20; TEMP 98.3; O2SAT 97
[2023-11-17] MEDS: metroNIDAZOLE 500 MG TAB PO SCH (14:17)
[2023-11-17 16:45] VITALS: BP 124/70; PULSE 88; RESP 20; TEMP 98.4; O2SAT 95
[2023-11-17 20:00] VITALS: PULSE 80; RESP 18; O2SAT 94
[2023-11-17 21:00] VITALS: BP 130/55; PULSE 80; RESP 18; TEMP 98.4; O2SAT 96
[2023-11-18 01:00] VITALS: BP 121/40; PULSE 80; RESP 17; TEMP 98; O2SAT 94
[2023-11-18 05:00] VITALS: BP_SYST 106; BP_SYST 121; BP_DIAS 52; BP_DIAS 66; PULSE 68; RESP 20; TEMP 97.9; O2SAT 93
[2023-11-18 08:00] VITALS: PULSE 80; RESP 18; O2SAT 97
[2023-11-18 08:44] VITALS: BP 117/55; PULSE 82; RESP 18; TEMP 98.3; O2SAT 97
[2023-11-18] MEDS ORDERED: METR-344 PO (09:49)
[2023-11-18 12:18] VITALS: BP 143/66; PULSE 79; RESP 18; TEMP 36.8; O2SAT 98
[2023-11-18 13:14] VITALS: BP 143/66; PULSE 79; RESP 18; TEMP 98.3; O2SAT 97
== END 2023-11-18 13:00 | disposition home or self-care (01) | DRG 392 ==
LOC: ER 03:06 → EDBD 03:06 → OVERFLOW 10:00 → WEST WING 10:36
PROVIDERS: ADMIT Nurse Practitioner Family; ATTEND Nurse Practitioner Acute Care
DX: K57.32 Diverticulitis of large intestine without perforation or abscess without bleeding (principal); N39.0 Urinary tract infection, site not specified; Z59.01 Sheltered homelessness; E66.9 Obesity, unspecified; I11.0 Hypertensive heart disease with heart failure; I50.9 Heart failure, unspecified; K31.89 Other diseases of stomach and duodenum; N42.89 Other specified disorders of prostate; R73.03 Prediabetes; Z90.49 Acquired absence of other specified parts of digestive tract; Z88.0 Allergy status to penicillin; Z83.3 Family history of diabetes mellitus; Z91.85 Personal history of military service; Z68.39 Body mass index [BMI] 39.0-39.9, adult
CPT/HCPCS: 36415; 74176; 80053; 80320; 81001; 83690; 84484; 85025; 87086; 93005; G0378; J1956; J3490